=== PATIENT | male | born 1980 | race Caucasian/White ===

== ENCOUNTER 2018-04-02 14:32 | Observation (INO) | payer OTHER ==
--- NOTE | 2018-04-02 15:27 | RAD REPORT ---
EXAM DESCRIPTION: Maurice Single View04/02/2018 3:19 pm CLINICAL HISTORY: Chest pain COMPARISON: 2017 FINDINGS: The lungs appear clear of acute infiltrate. The heart is normal size IMPRESSION: No acute abnormalities displayed
[2018-04-02 15:28] LABS: Absolute Lymphocytes (CBC) 2.5 K/uL (0.7-4.9); Absolute Monocytes 1.2 K/uL (0.1-1.3); Absolute Neutrophil 7.5 K/uL (1.8-8.0); Basophils % 0.7 % (0-1.3); Eosinophils % 0.4 % (0-4.4); Hematocrit 50.4 % (39.6-49.0); Lymphocytes % 22.1 % (15.3-44.8); MCV 87.3 fL (80-100); MPV 9.4 fL (7.6-11.3); Monocytes % 10.6 % (3.3-12.3); RBC Red Blood Cell Count 5.77 M/uL (4.33-5.43)
[2018-04-02 15:31] LABS: Protime INR 1.26
[2018-04-02 15:43] LABS: ALT/SGPT 86 U/L (12-78); AST/SGOT 39 U/L (15-37); Albumin 3.8 g/dL (3.4-5.0); Alkaline Phosphatase 116 U/L (45-117); BUN Blood Urea Nitrogen 11 mg/dL (7-18); Bicarbonate 26 mmol/L (21-32); Bilirubin Direct 0.3 mg/dL (0-0.2); Glucose Level 254 mg/dL (74-106); Magnesium 1.9 mg/dL (1.8-2.4); NT PRO-BNP 24 pg/mL (<125); Potassium 3.1 mmol/L (3.5-5.1); Protein, Total 8.1 g/dL (6.4-8.2); Sodium Level 139 mmol/L (136-145); Troponin (Emerg Dept Use Only) < 0.02 ng/mL (0.0-0.045)
--- NOTE | 2018-04-02 15:57 | EKG ---
Test Date: 2018-04-02 Test Time: 15:16:55 Property Site Manager: AMOR MEASUREMENT RESULTS: Intervals: Rate: 99 PA: 164 QRSD: 90 QT: 346 QTc: 444 Hessmer: P: 50 PA: 164 QRS: 49 T: 23 INTERPRETIVE STATEMENTS: Normal sinus rhythm Normal ECG Compared to ECG 03/04/2017 17:36:10 No significant changes Electronically Signed On 04-02-18 15:56:46 BAGGER AND STOCK HANDLER HELPER by Macario Cherry
--- NOTE | 2018-04-02 16:20 | ER ---
Nurse's Notes [facility] Name: Yassine Calles Age: 37 yrs Sex: Male : 1980 Arrival Date: 04/02/2018 Time: 14:33 Bed 6 Private MD: None, None Diagnosis: Chest pain on breathing;Chest pain, unspecified;Essential (primary) hypertension;Tobacco abuse counseling;Tobacco use;Hypokalemia Presentation: 04/02 14:43 Presenting complaint: Patient states: shortness of breath that began 2-3 days ago. Pt ss states, "I thought it was because my moved out, but it's been getting worse." Pt also reports that he has not been taking his blood thinner and cardiac medication.". Transition of care: patient was not received from another setting of care. Onset of symptoms was March 30, 2018. Risk Assessment: Do you want to hurt yourself or someone else? Patient reports no desire to harm self or others. Initial Sepsis Screen: Does the patient meet any 2 criteria? RR > 20 per min. HR > 90 bpm. Does the patient have a suspected source of infection? No. Patient's initial sepsis screen is negative. Care prior to arrival: None. 14:43 Method Of Arrival: Ambulatory ss 14:43 Acuity: OCTAVIANO 2 hb Triage Assessment: 19:12 General: Appears in no apparent distress. Behavior is calm, cooperative. Pain: ak1 Complains of pain in chest. EENT: No signs and/or symptoms were reported regarding the EENT system. Neuro: No deficits noted. Cardiovascular: Reports chest pain. Respiratory: Reports shortness of breath. GI: No signs and/or symptoms were reported involving the gastrointestinal system. : No signs and/or symptoms were reported regarding the genitourinary system. Derm: No signs and/or symptoms reported regarding the dermatologic system. Musculoskeletal: No signs and/or symptoms reported regarding the musculoskeletal system. Historical: - Allergies: 14:45 No Known Allergies; hb - Home Meds: 15:15 None [Active]; hb - PMHx: 14:45 Atrial Fib; cardiomyopathy; Diabetes - NIDDM; Hypertension; hb 15:06 Myocardial infarction; DVT; pulmonary embolism; ss - PSHx: 14:45 None; hb - Immunization history:: Adult Immunizations up to date. - Social history:: Smoking status: Patient uses tobacco products, smokes two packs cigarettes per day. - Ebola Screening: : Patient denies exposure to infectious person Patient denies travel to an Ebola-affected area in the 21 days before illness onset. - Family history:: not pertinent. Screenin:44 Abuse screen: Denies threats or abuse. Denies injuries from another. Nutritional hb screening: No deficits noted. Tuberculosis screening: No symptoms or risk factors identified. Fall Risk None identified. Assessment: 15:05 Reassessment: Pt reports that he was seen approximately 8 months ago at [facility], diagnosed with DVT and PE and never followed up. 16:00 Reassessment: Patient appears in no apparent distress at this time. Patient and/or hb family updated on plan of care and expected duration. Pain level reassessed. Patient is alert, oriented x 3, equal unlabored respirations, skin warm/dry/pink. 17:00 Reassessment: Patient appears in no apparent distress at this time. No changes from hb previously documented assessment. Patient and/or family updated on plan of care and expected duration. Pain level reassessed. Patient is alert, oriented x 3, equal unlabored respirations, skin warm/dry/pink. 17:11 Reassessment: PT RETURNED FROM CT. bp 18:21 Reassessment: Patient appears in no apparent distress at this time. Patient and/or hb family updated on plan of care and expected duration. Pain level reassessed. Patient is alert, oriented x 3, equal unlabored respirations, skin warm/dry/pink. 19:14 Pain: Pain does not radiate. Pain began 2-3 days ago. ak1 Vital Signs: 14:44 BP 193 / 100; Pulse 122; Resp 17; Temp 98.1; Pulse Ox 100% on R/A; Weight 127.01 kg; bp Pain 8/10; 15:46 BP 159 / 95; Pulse 108; Resp 16; Pulse Ox 100% on R/A; hb 18:03 BP 122 / 71; Pulse 88; Resp 21; Pulse Ox 97% ; bp 19:20 BP 123 / 71; Pulse 89; Resp 20; Temp 98.3; Pulse Ox 97% on R/A; Pain 4/10; ak1 ED Course: 14:33 Patient arrived in ED. as 14:34 None, None is Private Physician. as 14:35 Ta Khalil MD is Attending Physician. grayson 14:43 Capri Winn, JU is Primary Nurse. hb 14:43 Inserted saline lock: 18 gauge in left antecubital area, using aseptic technique. Blood hb collected. Patient maintains SpO2 saturation greater than 95% on room air. 14:43 Arm band placed on right wrist. ss 14:48 Triage completed. ss 15:05 Patient has correct armband on for positive identification. Bed in low position. Call ss light in reach. Side rails up X 1. pvc monitor on. Pulse ox on. NIBP on. 15:19 X-ray completed. Portable x-ray completed in exam room. Patient tolerated procedure ml well. 15:20 XRAY Chest (1 view) In Process Unspecified. EDMS 15:24 EKG done, by sterilization technician. reviewed by Ta Khalil MD. tc 16:19 Miley Marino MD is Hospitalizing Provider. grayson 19:13 No provider procedures requiring assistance completed. Patient admitted, IV remains in ak1 place. Administered Medications: 17:10 Drug: Lovenox 1 mg/kg Route: Sub-Q; Site: right lower abdomen; bp 19:19 Follow up: Response: No adverse reaction ak1 17:10 Drug: Pepcid 20 mg Route: IVP; Site: left antecubital; bp 19:18 Follow up: Response: No adverse reaction ak1 17:10 Drug: Lopressor (metoprolol TARTRATE) 50 mg Route: PO; bp 19:17 Follow up: Response: No adverse reaction ak1 17:11 Drug: Potassium Effervescent Tablet 50 mEq Route: PO; bp 19:19 Follow up: Response: No adverse reaction ak1 17:11 Drug: Aspirin 162 mg Route: PO; bp 19:19 Follow up: Response: No adverse reaction ak1 Outcome: 16:20 Decision to Hospitalize by Provider. grayson 19:22 Admitted to Tele accompanied by tech, via wheelchair, with chart. ak1 19:22 Condition: stable 19:22 Instructed on the need for admit. 20:20 Patient left the ED. ak1 Signatures: Dispatcher [employer] EDMS Ta Khalil MD MD cha Martinez, Amelia as Lopez, Melissa ml Smirch, Shelby, JU RN Kacie Garcia, engraver signature EKG Ttc Kinjal Clement RN RN ak1 Capri Winn, JU RN hb Jason Ryan, RN RN bp Corrections: (The following items were deleted from the chart) 14:56 14:43 Acuity: OCTAVIANO 3 ss hb 14:57 14:44 BP 193 / 100; Pulse 120bpm; Resp 17bpm; Pulse Ox 100% RA; Temp 98.1F; Pain 8/10; hb hb 16:16 14:44 BP 193 / 100; Pulse 122bpm; Resp 17bpm; Pulse Ox 100% RA; Temp 98.1F; Pain 8/10; bp hb
--- NOTE | 2018-04-02 16:21 | EDPHYS ---
Physician Documentation [facility] Name: Yassine Calles Age: 37 yrs Sex: Male : 1980 Arrival Date: 04/02/2018 Time: 14:33 Bed 6 Private MD: None, None ED Physician Ta Khalil HPI: 04/02 16:16 This 37 yrs old Male presents to ER via Ambulatory with complaints of Chest grayson Pain, Breathing Difficulty. 16:16 This 37 yrs old Male presents to ER via Ambulatory with complaints of Chest grayson Pain, Breathing Difficulty. 16:16 This 37 yrs old Male presents to ER via Ambulatory with complaints of Chest grayson Pain, Breathing Difficulty. 16:16 The patient or guardian reports chest pain that is located primarily in the substernal grayson area. The pain does not radiate. Associated signs and symptoms: The patient has no apparent associated signs or symptoms. The chest pain is described as a heaviness. 16:17 The patient has shortness of breath with light activity. Onset: The symptoms/episode grayson began/occurred 3 day(s) ago. Duration: The symptoms are continuous, and are steadily getting worse. Associated signs and symptoms: The patient has no apparent associated signs or symptoms. Historical: - Allergies: 14:45 No Known Allergies; hb - Home Meds: 15:15 None [Active]; hb - PMHx: 14:45 Atrial Fib; cardiomyopathy; Diabetes - NIDDM; Hypertension; hb 15:06 Myocardial infarction; DVT; pulmonary embolism; ss - PSHx: 14:45 None; hb - Immunization history:: Adult Immunizations up to date. - Social history:: Smoking status: Patient uses tobacco products, smokes two packs cigarettes per day. - Ebola Screening: : Patient denies exposure to infectious person Patient denies travel to an Ebola-affected area in the 21 days before illness onset. - Family history:: not pertinent. ROS: 16:17 Constitutional: Negative for fever, chills, and weight loss, Eyes: Negative for injury, grayson pain, redness, and discharge, ENT: Negative for injury, pain, and discharge, Neck: Negative for injury, pain, and swelling, Abdomen/GI: Negative for abdominal pain, nausea, vomiting, diarrhea, and constipation, Back: Negative for injury and pain, : Negative for injury, bleeding, discharge, and swelling, MS/Extremity: Negative for injury and deformity, Skin: Negative for injury, rash, and discoloration, Neuro: Negative for headache, weakness, numbness, tingling, and seizure, Psych: Negative for depression, anxiety, suicide ideation, homicidal ideation, and hallucinations, Allergy/Immunology: Negative for hives, rash, and allergies, Endocrine: Negative for neck swelling, polydipsia, polyuria, polyphagia, and marked weight changes, Hematologic/Lymphatic: Negative for swollen nodes, abnormal bleeding, and unusual bruising. 16:17 Cardiovascular: Positive for chest pain. 16:17 Respiratory: Positive for cough, shortness of breath, on exertion. Exam: 16:17 Constitutional: This is a well developed, well nourished patient who is awake, alert, grayson and in no acute distress. Head/Face: Normocephalic, atraumatic. Eyes: Pupils equal round and reactive to light, extra-ocular motions intact. Lids and lashes normal. Conjunctiva and sclera are non-icteric and not injected. Cornea within normal limits. Periorbital areas with no swelling, redness, or edema. ENT: Nares patent. No nasal discharge, no septal abnormalities noted. Tympanic membranes are normal and external auditory canals are clear. Oropharynx with no redness, swelling, or masses, exudates, or evidence of obstruction, uvula midline. Mucous membranes moist. Neck: Trachea midline, no thyromegaly or masses palpated, and no cervical lymphadenopathy. Supple, full range of motion without nuchal rigidity, or vertebral point tenderness. No Meningismus. Chest/axilla: Normal chest wall appearance and motion. Nontender with no deformity. No lesions are appreciated. Cardiovascular: Regular rate and rhythm with a normal S1 and S2. No gallops, murmurs, or rubs. Normal PMI, no JVD. No pulse deficits. Abdomen/GI: Soft, non-tender, with normal bowel sounds. No distension or tympany. No guarding or rebound. No evidence of tenderness throughout. Back: No spinal tenderness. No costovertebral tenderness. Full range of motion. Skin: Warm, dry with normal turgor. Normal color with no rashes, no lesions, and no evidence of cellulitis. MS/ Extremity: Pulses equal, no cyanosis. Neurovascular intact. Full, normal range of motion. Neuro: Awake and alert, GCS 15, oriented to person, place, time, and situation. Cranial nerves II-XII grossly intact. Motor strength 5/5 in all extremities. Sensory grossly intact. Cerebellar exam normal. Normal gait. Psych: Awake, alert, with orientation to person, place and time. Behavior, mood, and affect are within normal limits. 16:17 Respiratory: the patient does not display signs of respiratory distress, Respirations: normal, Breath sounds: are clear throughout, rhonchi, that are mild, are scattered. Vital Signs: 14:44 BP 193 / 100; Pulse 122; Resp 17; Temp 98.1; Pulse Ox 100% on R/A; Weight 127.01 kg; bp Pain 8/10; 15:46 BP 159 / 95; Pulse 108; Resp 16; Pulse Ox 100% on R/A; hb 18:03 BP 122 / 71; Pulse 88; Resp 21; Pulse Ox 97% ; bp 19:20 BP 123 / 71; Pulse 89; Resp 20; Temp 98.3; Pulse Ox 97% on R/A; Pain 4/10; ak1 MDM: 14:35 Patient medically screened. [facility] 16:18 Data reviewed: vital signs, nurses notes, lab test result(s), EKG, radiologic studies, [facility] CT scan, plain films. 04/02 14:56 Order name: Basic Metabolic Panel; Complete Time: 16: 04/02 14:56 Order name: CBC with Diff; Complete Time: 16: 04/02 14:56 Order name: LFT's; Complete Time: 16: 04/02 14:56 Order name: Magnesium; Complete Time: 16: 04/02 14:56 Order name: NT PRO-BNP; Complete Time: 16: 04/02 14:56 Order name: PT-INR; Complete Time: 16: 04/02 14:56 Order name: Troponin (emerg Dept Use Only); Complete Time: 16: 04/02 14:56 Order name: XRAY Chest (1 view); Complete Time: 16:01 04/02 16:16 Order name: US Extremity Venous W Compression Edu grayson 04/02 16:16 Order name: CT Chest For PE Angio [facility] 04/02 16:50 Order name: CT; Complete Time: 16:53 EDMS 04/02 17:14 Order name: US; Complete Time: 18:18 EDOK 04/02 14:56 Order name: EKG; Complete Time: 15:04 hb 04/02 14:56 Order name: Cardiac monitoring; Complete Time: 14:56 hb 04/02 14:56 Order name: EKG - Nurse/Tech; Complete Time: 15:19 hb 04/02 14:56 Order name: IV Saline Lock; Complete Time: 15:08 hb 04/02 14:56 Order name: Labs collected and sent; Complete Time: 15:07 hb 04/02 14:56 Order name: O2 Per Protocol; Complete Time: 15:08 hb 04/02 14:56 Order name: O2 Sat Monitoring; Complete Time: 15:08 hb 04/02 16:27 Order name: CONS Physician Consult EDMS Administered Medications: 17:10 Drug: Lovenox 1 mg/kg Route: Sub-Q; Site: right lower abdomen; bp 19:19 Follow up: Response: No adverse reaction ak1 17:10 Drug: Pepcid 20 mg Route: IVP; Site: left antecubital; bp 19:18 Follow up: Response: No adverse reaction ak1 17:10 Drug: Lopressor (metoprolol TARTRATE) 50 mg Route: PO; bp 19:17 Follow up: Response: No adverse reaction ak1 17:11 Drug: Potassium Effervescent Tablet 50 mEq Route: PO; bp 19:19 Follow up: Response: No adverse reaction ak1 17:11 Drug: Aspirin 162 mg Route: PO; bp 19:19 Follow up: Response: No adverse reaction ak1 Disposition: 04/02/18 16:20 Hospitalization ordered by Miley Marino for Observation. Preliminary diagnosis are Chest pain on breathing, Chest pain, unspecified, Essential (primary) hypertension, Tobacco abuse counseling, Tobacco use, Hypokalemia. - Bed requested for Telemetry/MedSurg (observation). - Status is Observation. ak1 - Condition is Stable. - Problem is new. - Symptoms have improved. UTI on Admission? No Signatures: Dispatcher [employer] EDOK Carolin Finch RN RN dw Anderson, Corey, MD MD cha Smirch, Shelby, RN RN ss Krenek, Amber, RN RN ak1 Winn, Capri, RN RN hb Taylor, Uche, RN RN jd3 Connor, Jason, RN RN bp Corrections: (The following items were deleted from the chart) 16:20 16:20 Hospitalization Ordered by Miley Marino MD for Observation. Preliminary grayson diagnosis is Chest pain on breathing; Chest pain, unspecified; Essential (primary) hypertension; Tobacco abuse counseling; Tobacco use. Bed requested for Telemetry/MedSurg (observation). Status is Observation. Condition is Stable. Problem is new. Symptoms have improved. UTI on Admission? No. grayson 16:31 16:20 04/02/2018 16:20 Hospitalization Ordered by Miley Marino MD for Observation. dw Preliminary diagnosis is Chest pain on breathing; Chest pain, unspecified; Essential (primary) hypertension; Tobacco abuse counseling; Tobacco use; Hypokalemia. Bed requested for Telemetry/MedSurg (observation). Status is Observation. Condition is Stable. Problem is new. Symptoms have improved. UTI on Admission? No. grayson 19:40 16:31 04/02/2018 16:20 Hospitalization Ordered by Miley Marino MD for Observation. jd3 Preliminary diagnosis is Chest pain on breathing; Chest pain, unspecified; Essential (primary) hypertension; Tobacco abuse counseling; Tobacco use; Hypokalemia. Bed requested for Telemetry/MedSurg (observation). Status is Observation. Condition is Stable. Problem is new. Symptoms have improved. UTI on Admission? No. dw 20:20 19:40 04/02/2018 16:20 Hospitalization Ordered by Miley Marino MD for Observation. ak1 Preliminary diagnosis is Chest pain on breathing; Chest pain, unspecified; Essential (primary) hypertension; Tobacco abuse counseling; Tobacco use; Hypokalemia. Bed requested for Telemetry/MedSurg (observation). Status is Observation. Condition is Stable. Problem is new. Symptoms have improved. UTI on Admission? No. jd3
[2018-04-02] MEDS ORDERED: METOPROLOL TAR 50 MG TAB ONE (16:46)
[2018-04-02] MEDS ORDERED: ASPIRIN EC 81 MG TAB PO ONE (16:46)
[2018-04-02] MEDS ORDERED: POTASSIUM 25 MEQ EFFERV TAB ONE (16:47)
[2018-04-02] MEDS ORDERED: FAMOTIDINE 20 MG/2 ML VIAL IV ONE (16:47)
[2018-04-02] MEDS ORDERED: ENOXAPARIN 100 MG/ML SYR SQ ONE (16:47)
--- NOTE | 2018-04-02 16:49 | RAD REPORT ---
EXAM DESCRIPTION: CT - Chest For Pe Angio - 04/02/2018 4:36 pm CLINICAL HISTORY: Chest pain, shortness of breath COMPARISON: None. TECHNIQUE: Dynamically enhanced 3 mm thick images of the chest were obtained during administration o f approximately 150mL Isovue 370 IV contrast. Coronal and oblique MIP reconstruction images were gene rated and reviewed. Exam utilizes a protocol to evaluate the pulmonary arterial tree. All CT scans are performed using dose optimization technique as appropriate and may include automated exposure control or mA/KV adjustment according to patient size. FINDINGS: No pulmonary emboli are identified. The aorta as imaged shows no acute or suspicious finding. No pericardial thickening or effusion. No mass or consolidation suspected. There is a trace amount of opacification in the medial gutter on the left. No pleural effusion or pleural thickening. No mediastinal or hilar suspicious masses. No chest wall masses or abnormal axillary lymphadenopathy. IMPRESSION: No pulmonary emboli identified. Minimal opacification in the medial left lung base probably atelectasis rather than infiltrate. Mass lesion is not suspected.
--- NOTE | 2018-04-02 17:14 | RAD REPORT ---
EXAM DESCRIPTION: US - Extrem Venous W Compress Edu - 04/02/2018 5:08 pm CLINICAL HISTORY: Leg pain and swelling COMPARISON: None. TECHNIQUE: Real-time sonographic evaluation of the bilateral lower extremity common femoral, superfi cial femoral, popliteal and posterior tibial veins was performed. FINDINGS: Normal compressibility, flow augmentation, phasic flow and spontaneous flow are identified in the left and right lower extremity common femoral, superficial femoral, popliteal and posterior t ibial veins. No intraluminal filling defects seen. IMPRESSION: No DVT in either lower extremity.
[2018-04-02] MEDS: RIVAROXABAN 10 MG TABLET PO SCH ×2 (21:00→22:13)
[2018-04-02 21:07] VITALS: BMI 36.6
--- NOTE | 2018-04-02 21:26 | P.HP ---
Certification for Inpatient Patient admitted to: Observation With expected LOS: <2 Midnights Practitioner: I am a practitioner with admitting privileges, knowledge of patient current condition, hospital course, and medical plan of care. Services: Services provided to patient in accordance with Admission requirements found in Title 42 Section 412.3 of the Code of Federal Regulations Patient History Date of Service: 04/02/18 Reason for admission: Chest pain History of Present Illness: Mr. Calles is a 37-year-old male history of hypertension, AFib, DVT/pulmonary embolism, who came to ER complaining of chest pain. He described the pain as a constant, tightness like, retrosternal pain. The pain started about 2 days ago, intensity most of the time is 6/10 with a maximum of 10/10. He denied any nausea, vomiting, shortness of breath or diaphoresis associated. The patient states that has been not taking his medication for six-month. Lately he has been more stressful due to family problems. He smokes 2 packs having and drinks alcohol but not every day. EKG shows normal and [address]-T abnormality. Chest x-ray is not acute abnormality. 193/100, O2 sat 100% on room air. Lab work shows WBC 11.4 K, potassium 3.1 Allergies No Known Drug Allergies Allergy (Unverified 10/17/14 00:51) Unknown No Known Allergies Allergy (Uncoded 03/04/17 19:15) Unknown Home medications list reviewed: Yes Home Medications: Digoxin [Lanoxin*] 0.25 mg PO DAILY #0 tab 08/05/13 Furosemide [Lasix*] 40 mg PO DAILY #0 tab 08/05/13 Rivaroxaban [Xarelto*] 20 mg PO BEDTIME #0 tablet 08/05/13 Sotalol HCl [Betapace*] 80 mg PO Q12HR 6AM AND 6PM #0 tab 08/05/13 Atorvastatin Calcium [Lipitor*] 10 mg PO DAILY 10/16/14 Lisinopril [Prinivil*] 10 mg PO DAILY 10/16/14 Colchicine [Colcrys *] 0.6 mg PO BID PRN #20 tab 10/17/14 Cyclobenzaprine [Flexeril*] 10 mg PO BID PRN #20 tab 10/17/14 Hydrocodone 10/APAP 325 [[place] 10/325] 1 tab PO Q6H PRN #30 tab 10/17/14 methylPREDNISolone [Medrol] 4 mg PO DAILY #1 tab 10/17/14 - Past Medical/Surgical History Diabetic: No -: A-fib -: Cardiomyopathy -: HTN - Family History Family History: Reviewed- Non-Contributory - Social History Smoking Status: Current every day smoker Smoking therapy provided: Yes Alcohol use: No CD- Drugs: No Caffeine use: Yes Place of Residence: Home Review of Systems 10-point ROS is otherwise unremarkable Physical Examination - Vital Signs Temperature: 97.9 F Blood Pressure: 134/86 Pulse: 92 Respirations: 20 Pulse Ox (%): 95 - Physical Exam General: Alert, In no apparent distress HEENT: Atraumatic, PERRLA, Mucous membr. moist/pink, EOMI, Sclerae nonicteric Neck: Supple, 2+ carotid pulse no bruit, No LAD, Without JVD or thyroid abnormality Respiratory: Clear to auscultation bilaterally, Normal air movement Cardiovascular: Regular rate/rhythm, Normal S1 S2 Gastrointestinal: Normal bowel sounds, No tenderness Musculoskeletal: No tenderness Integumentary: No rashes Neurological: Normal speech, Normal strength at 5/5 x4 extr, Normal tone, Abnormal affect (Flat) Lymphatics: No axilla or inguinal lymphadenopathy - Studies Laboratory Data (last 24 hrs) 04/02/18 14:46: PT 14.9 H, INR 1.26 04/02/18 14:46: WBC 11.4 H, Hgb 17.3, Hct 50.4 H, Plt Count 251 04/02/18 14:46: Sodium 139, Potassium 3.1 L, BUN 11, Creatinine 1.10, Glucose 254 H, Magnesium 1.9, Total Bilirubin 1.0, AST 39 H, ALT 86 H, Alkaline Phosphatase 116 Assessment and Plan - Problems (Diagnosis) (1) Hypertension Current Visit: Yes Status: Acute Qualifiers: Hypertension type: essential hypertension Qualified Code(s): I10 - Essential (primary) hypertension (2) Atrial fibrillation Current Visit: No Status: Acute (3) Chest pain Onset Date: 10/17/14 Current Visit: No Status: Acute Qualifiers: Chest pain type: unspecified Qualified Code(s): R07.9 - Chest pain, unspecified - Plan The patient will be admitted to the hospital due to chest pain. So far EKG ST-T abnormality, initial troponin I is negative. Will resume home medication, order serial cardiac enzymes and EKG, echo cardiology consult. - Advance Directives Does patient have a Living Will: No Does patient have a Durable POA for Healthcare: No - Code Status/Comfort Care Code Status Assessed: Yes Code Status: Full Code
[2018-04-03 00:30] LABS: Urine Appearance CLEAR; Urine Bilirubin NEGATIVE (NEG); Urine Blood NEGATIVE (NEG); Urine Color DK YELLOW; Urine Glucose 3+ (NEG); Urine Protein NEGATIVE (NEG); Urine Specific Gravity >=1.030 (1.005-1.030); Urine pH 5.5 (5.0-7.0)
[2018-04-03 00:34] LABS: Urine Microscopic Reflex NO UMIC
[2018-04-03] MEDS ORDERED: GLUCAGON 1 MG/VIAL IM PRN (02:53)
[2018-04-03] MEDS ORDERED: D50W 25 GM/50 ML SYRINGE IV PRN (02:53)
[2018-04-03] MEDS ORDERED: POTASSIUM CL SA 10 MEQ TAB PO ONE (02:55)
[2018-04-03 04:56] LABS: Absolute Lymphocytes (CBC) 3.7 K/uL (0.7-4.9); Absolute Neutrophil 3.5 K/uL (1.8-8.0); Basophils % 0.7 % (0-1.3); Eosinophils % 2.1 % (0-4.4); Hematocrit 46.2 % (39.6-49.0); Lymphocytes % 43.9 % (15.3-44.8); MCH 30.6 pg (27.0-35.0); MCV 87.5 fL (80-100); MPV 9.3 fL (7.6-11.3); Monocytes % 12.3 % (3.3-12.3); RBC Red Blood Cell Count 5.28 M/uL (4.33-5.43)
[2018-04-03 05:18] LABS: ALT/SGPT 77 U/L (12-78); AST/SGOT 36 U/L (15-37); Albumin 3.3 g/dL (3.4-5.0); Alkaline Phosphatase 89 U/L (45-117); BUN Blood Urea Nitrogen 11 mg/dL (7-18); Bicarbonate 31 mmol/L (21-32); Glucose Level 207 mg/dL (74-106); HDL Cholesterol 23 mg/dL (40-60); LDL Cholesterol, Calculated 108 (<130); Potassium 3.5 mmol/L (3.5-5.1); Sodium Level 139 mmol/L (136-145); Troponin I < 0.02 ng/mL (0.0-0.045)
[2018-04-03] MEDS ORDERED: SOTALOL HCL 80 MG TAB PO SCH ×2 (06:00→18:00)
[2018-04-03] MEDS: INSULIN -REGULAR HUMAN 50 UNIT/0.5 ML ML SQ SCH ×3 (07:30→16:02)
[2018-04-03] MEDS ORDERED: ATORVASTATIN 10 MG TAB PO SCH (09:00)
[2018-04-03] MEDS ORDERED: LISINOPRIL 10 MG TAB PO SCH (09:00)
[2018-04-03] MEDS: IPRATROPIUM BROM 0.5MG/2.5ML NEB SCH ×2 (10:36→14:00)
[2018-04-03] MEDS: ALBUTEROL 2.5 MG/3 ML NEB SOL NEB SCH ×2 (10:36→14:00)
[2018-04-03 12:25] VITALS: O2SAT 97
--- NOTE | 2018-04-03 13:40 | CON ---
Date of Consultation: 04/03/2018 Reason For Consultation: Shortness of breath and chest pain. History Of Present Illness: Mr. Calles is a 37-year-old white male, who has been lost to follow up f or many years. He weighs 280 pounds and had a history at one point of atrial fibrillation and status post cardioversion in 2013 to sinus rhythm. He has a history of dyslipidemia, pulmonary hypertensio n, diabetes, cardiomyopathy. Has had DVT's, PE's, and supposedly CAD, although not documented. At o ne point, he use see Dr. Cherry. Had been lost a follow up and since then had seen Dr. Marcum, I th ink once. Has done fairly well, and he stopped taking all his medications for a while now. Has last cardiac workup in 2014. He had a normal echocardiogram and normal Lexiscan. He has been having julio cesar e issues at home with his marriage. His left the house and apparently has been under significan t amount of stress, came in with shortness of breath. Allergies: NONE. Review of Systems: Negative. Social History: Positive for tobacco. Negative for alcohol and drugs. Family History: Negative at one point. Medications: Included digoxin, Lipitor, Lasix, sotalol, lisinopril, and Xarelto. He is not taking a ny now. Physical Examination: Vital Signs: He weighed 280 pounds, was in sinus rhythm, very anxious. HEENT: Negative. Neck: Supple with no bruit. Chest: Clear to auscultation and percussion. No wheezing. No rales. Cardiac: Normal. Abdomen: Obese, but benign. Extremities: No clubbing, cyanosis, or edema. Diagnostic Data: He had a white count of 11,000, potassium of 3.1, glucose was 207, HDL was 23. Chest x-ray was negative. Venous Doppler was negative. EKG is normal. CT angiogram was negative. Troponin, BNP was negative. Impression And Plan: Mr. Calles had a rather extensive past cardiac history and medical history, but so far all his workup is negative including troponin, BNP, CPK, CT angiogram, deep venous Doppler, c hest x-ray, and EKG. The only thing worth mentioning is his glucose 207, white count is 11,000, and potassium 3.1. It is possible that all his symptoms may be secondary to stress and anxiety and hyper ventilation causing the hypokalemia. But with his significant history, I think I would definitely quach ve him do an echocardiogram today, and we will see what that shows prior to making any final decision s. I do not think we will need to do a stress test today. I think he needs to have his potassium co rrected, his glucose treated, and he is to find a primary care physician that he will follow up on a regular basis. His atrial fibrillation is resolved. We will make further decisions after the echoca rdiogram is done. PATTY/JOVANNI Voice ID: [id number] Report ID: [id number]
[2018-04-03] MEDS ORDERED: IPRATROPIUM BROM 0.5MG/2.5ML NEB PRN (14:41)
[2018-04-03] MEDS ORDERED: ALBUTEROL 2.5 MG/3 ML NEB SOL NEB PRN (14:43)
--- NOTE | 2018-04-03 15:16 | ECHO ---
HEIGHT: 6 ft 0 in WEIGHT: 269 lb 14.4 oz DATE OF STUDY: 04/03/[address]: Ashkan Anguiano MD 2-DIMENSIONAL: YES M.MODE: YES DOPPLER: YES COLOR FLOW: YES TDS: PORTABLE: DEFINITY: BUBBLE STUDY: DIAGNOSIS: CHEST PAIN, SHORTNESS OF BREATH, AND HYPERTENSION. CARDIAC HISTORY: CATHERIZATION: NO SURGERY: NO PROSTHETIC VALVE: NO PACEMAKER: NO MEASUREMENTS (cm) DIASTOLIC (NORMALS) SYSTOLIC (NORMALS) IVSd 1.4 (0.6-1.2) LA Diam 4.0 (1.9-4.0) LVEF 52% LVIDd 3.8 (3.5-5.7) LVIDs 2.8 (2.0-3.5) %FS 26% LVPWd 1.4 (0.6-1.2) Ao Diam 3.1 (2.0-3.7) 2 DIMENSIONAL ASSESSMENT: RIGHT ATRIUM: NORMAL LEFT ATRIUM: NORMAL RIGHT VENTRICLE: NORMAL LEFT VENTRICLE: LEFT VENTRICULAR HYPERTROPHY TRICUSPID VALVE: NORMAL MITRAL VALVE: NORMAL PULMONIC VALVE: NORMAL AORTIC VALVE: NORMAL PERICARDIAL EFFUSION: NONE AORTIC ROOT: NORMAL LEFT VENTRICULAR WALL MOTION: NORMAL DOPPLER/COLOR FLOW: NORMAL COMMENTS: LEFT VENTRICULAR HYPERTROPHY. NORMAL EJECTION FRACTION. NO WALL MOTION ABNORMALITY. NO EFFUSION. TECHNOLOGIST: CONNER ORTIZ
--- NOTE | 2018-04-03 15:30 | P.SSS ---
Patient History Date of Service: 04/03/18 Reason for admission: Chest pain History of Present Illness: Mr. Calles is a 37-year-old male history of hypertension, AFib, DVT/pulmonary embolism, who came to ER complaining of chest pain. He described the pain as a constant, tightness like, retrosternal pain. The pain started about 2 days ago, intensity most of the time is 6/10 with a maximum of 10/10. He denied any nausea, vomiting, shortness of breath or diaphoresis associated. The patient states that has been not taking his medication for six-month. Lately he has been more stressful due to family problems. He smokes 2 packs having and drinks alcohol but not every day. EKG shows normal and [address]-T abnormality. Chest x-ray is not acute abnormality. 193/100, O2 sat 100% on room air. Lab work shows WBC 11.4 K, potassium 3.1 Allergies No Known Drug Allergies Allergy (Verified 04/02/18 22:10) Unknown No Known Allergies Allergy (Uncoded 03/04/17 19:15) Unknown Home Medications: Digoxin [Lanoxin*] 0.25 mg PO DAILY #0 tab 08/05/13 Furosemide [Lasix*] 40 mg PO DAILY #0 tab 08/05/13 Rivaroxaban [Xarelto*] 20 mg PO BEDTIME #0 tablet 08/05/13 Sotalol HCl [Betapace*] 80 mg PO Q12HR 6AM AND 6PM #0 tab 08/05/13 Atorvastatin Calcium [Lipitor*] 10 mg PO DAILY 10/16/14 Lisinopril [Prinivil*] 10 mg PO DAILY 10/16/14 - Past Medical/Surgical History Has patient received pneumonia vaccine in the past: No Diabetic: Yes -: A-fib -: Cardiomyopathy -: HTN -: PE -: DVT -: NE -: NIDDM -: HTN - Family History Family History: Reviewed- Non-Contributory - Family History Father -: Other (see notes) Notes: multiple back surgeries, otherwise unaware of any other medical problems Mother History Unknown: Yes Brother History Unknown: Yes - Social History Smoking Status: Current every day smoker Alcohol use: Yes CD- Drugs: No Caffeine use: Yes Place of Residence: Home Review of Systems 10-point ROS is otherwise unremarkable Physical Examination - Vital Signs Temperature: 98.9 F Blood Pressure: 142/92 Pulse: 94 Respirations: 18 Pulse Ox (%): 97 - Physical Exam General: Alert, In no apparent distress HEENT: Atraumatic, PERRLA, Mucous membr. moist/pink, EOMI, Sclerae nonicteric Neck: Supple, 2+ carotid pulse no bruit, No LAD, Without JVD or thyroid abnormality Respiratory: Clear to auscultation bilaterally, Normal air movement Cardiovascular: Regular rate/rhythm, Normal S1 S2 Gastrointestinal: Normal bowel sounds, No tenderness Musculoskeletal: No tenderness Integumentary: No rashes Neurological: Normal gait, Normal speech, Normal strength at 5/5 x4 extr, Normal tone, Normal affect Lymphatics: No axilla or inguinal lymphadenopathy - Studies Laboratory Data (last 24 hrs) 04/02/18 14:46: PT 14.9 H, INR 1.26 04/02/18 14:46: WBC 11.4 H, Hgb 17.3, Hct 50.4 H, Plt Count 251 04/02/18 14:46: Sodium 139, Potassium 3.1 L, BUN 11, Creatinine 1.10, Glucose 254 H, Magnesium 1.9, Total Bilirubin 1.0, AST 39 H, ALT 86 H, Alkaline Phosphatase 116 - Diagnosis (Problem(s)) (1) Chest pain Onset Date: 04/03/18 Current Visit: Yes Status: Acute Qualifiers: Chest pain type: other chest pain Qualified Code(s): R07.89 - Other chest pain; R07.8 - Other chest pain (2) Hypertension Onset Date: 04/03/18 Current Visit: Yes Status: Chronic Qualifiers: Hypertension type: essential hypertension Qualified Code(s): I10 - Essential (primary) hypertension Treatment Summary: Overall during the hospital stay patient remained stable The patient was initially admitted to the hospital for chest pain most likely secondary to anxiety versus panic attack. However cardiology recommended the patient get an echocardiogram done to rule out any acute abnormality. Echocardiogram was done here in the hospital which is within normal limits. Patient then was discharged home chest pain did resolve here in the hospital. While here in the hospital patient also received duo nebs which did help him feel better. Patient was educated extensively on smoking cessation and was asked to continue taking his medications as prescribed. Patient demonstrated understanding and thus was discharged home under stable condition - Disposition Disposition: ROUTINE DISCHARGE Condition: GOOD Diet: Regular Activity: Ad valdemar
[2018-04-03 18:10] VITALS: BP 146/93; TEMP 97.6
[2018-04-04] MEDS ORDERED: DIGOXIN 0.25 MG TABLET PO SCH (09:00)
[2018-04-04] MEDS ORDERED: FUROSEMIDE 40 MG TABLET PO SCH (09:00)
== END 2018-04-03 17:27 | disposition home or self-care (01) ==
LOC: ER 14:32 → ERHOLD 16:21 → 4TH 19:50
PROVIDERS: ADMIT Family Medicine; ATTEND Internal Medicine
DX: R07.9 Chest pain, unspecified (principal); I10 Essential (primary) hypertension; I48.91 Unspecified atrial fibrillation; E11.9 Type 2 diabetes mellitus without complications; F17.210 Nicotine dependence, cigarettes, uncomplicated; Z86.718 Personal history of other venous thrombosis and embolism; Z86.711 Personal history of pulmonary embolism
CPT/HCPCS: 36415; 71045; 71275; 80048; 80053; 80061; 80076; 81003; 82962; 83735; 83880; 84132; 84484; 85025; 85610; 93005; 93306; 93970; 94640; 96372; 96374; 99285; G0378; J1650; Q9967

== ENCOUNTER 2018-05-30 18:34 | Inpatient (IN) | payer OTHER ==
[2018-05-30] MEDS ORDERED: NA CHLORIDE 0.9% 500 ML ONE (18:59)
[2018-05-30] MEDS ORDERED: DIGOXIN 0.25 MG/ML AMP ONE (19:23)
[2018-05-30 19:24] LABS: Absolute Lymphocytes (CBC) 1.5 K/uL (0.7-4.9); Absolute Monocytes 1.2 K/uL (0.1-1.3); Absolute Neutrophil 12.4 K/uL (1.8-8.0); Basophils % 0.4 % (0-1.3); Eosinophils % 0.3 % (0-4.4); Hematocrit 48.7 % (39.6-49.0); MPV 9.5 fL (7.6-11.3); Monocytes % 8.1 % (3.3-12.3); RBC Red Blood Cell Count 5.58 M/uL (4.33-5.43)
[2018-05-30 19:27] LABS: Protime INR 1.17
--- NOTE | 2018-05-30 19:30 | RAD REPORT ---
EXAM DESCRIPTION: CT - Head Brain Wo Cont - 05/30/2018 7:23 pm CLINICAL HISTORY: seizures COMPARISON: No comparisons TECHNIQUE: All CT scans are performed using dose optimization technique as appropriate and may inclu de automated exposure control or mA/KV adjustment according to patient size. FINDINGS: No intracranial hemorrhage, hydrocephalus or extra-axial fluid collection.No areas of brai n edema or evidence of midline shift. The paranasal sinuses and mastoids are clear. The calvarium is intact. IMPRESSION: No acute intracranial abnormality.
[2018-05-30 19:36] LABS: Barbiturates NEGATIVE (NEGATIVE); Benzodiazepines POSITIVE (NEGATIVE); Cocaine NEGATIVE (NEGATIVE); METHAMPHETAM NEGATIVE (NEGATIVE); Methadone NEGATIVE (NEGATIVE); Opiates NEGATIVE (NEGATIVE); Phencyclidine NEGATIVE (NEGATIVE); THC Cannibis NEGATIVE (NEGATIVE)
[2018-05-30 19:39] LABS: Urine Blood 1+ (NEG); Urine Glucose 2+ (NEG); Urine Protein 1+ (NEG)
[2018-05-30] MEDS ORDERED: LORazepam 2 MG/ML VIAL ONE (19:44)
--- NOTE | 2018-05-30 19:50 | RAD REPORT ---
EXAM DESCRIPTION: RAD - Chest Single View - 05/30/2018 7:44 pm CLINICAL HISTORY: seizures, cardiomyopathy Chest pain. COMPARISON: Chest Single View dated 04/02/2018; Chest Pa And Lat (2 Views) dated 03/04/2017; CHEST S YASSINE VIEW dated 10/16/2014; CHEST SINGLE VIEW dated 09/03/2013 FINDINGS: Portable technique limits examination quality. Mild interstitial pulmonary edema suspected. The heart is upper limit normal in size. No displaced fr actures.
[2018-05-30] MEDS ORDERED: ENOXAPARIN 100 MG/ML SYR SQ ONE (19:52)
[2018-05-30 19:56] LABS: ALT/SGPT 79 U/L (12-78); AST/SGOT 38 U/L (15-37); Albumin 3.6 g/dL (3.4-5.0); Alkaline Phosphatase 109 U/L (45-117); BUN Blood Urea Nitrogen 15 mg/dL (7-18); Bicarbonate 20 mmol/L (21-32); Bilirubin Direct 0.2 mg/dL (0-0.2); Bilirubin Total 0.5 mg/dL (0.2-1.0); CKMB Creatine Kinase MB 1.7 ng/mL (0.3-3.6); Creatine Phosphokinase 234 U/L (39-308); Glucose Level 326 mg/dL (74-106); Lipase 232 U/L (73-393); Magnesium 2.4 mg/dL (1.8-2.4); Potassium 3.7 mmol/L (3.5-5.1); Protein, Total 7.9 g/dL (6.4-8.2); Sodium Level 135 mmol/L (136-145); Troponin (Emerg Dept Use Only) < 0.02 ng/mL (0.0-0.045)
--- NOTE | 2018-05-30 20:42 | ER ---
Nurse's Notes [facility] Name: Yassine Calles Age: 37 yrs Sex: Male : 1980 Arrival Date: 05/30/2018 Time: 18:41 Bed 4 Private MD: Diagnosis: Epilepsy and recurrent seizures;Chronic atrial fibrillation;Diabetes mellitus due to underlying condition with hyperglycemia Presentation: 05/30 18:45 Presenting complaint: EMS states: Had 3 seizures today, witnessed by family, no hx of ph seizures, seen at [facility] and d/c home w/ prescription for dilantin, before script could be filled pt had another seizure, pt post-ictal and combative when EMS arrived on scene, pt given 2 mg Ativan and 10 mg Versed IM, BGL 264, HR 160s hx of A-fib. Transition of care: patient was not received from another setting of care. Onset of symptoms was May 30, 2018. Risk Assessment: Do you want to hurt yourself or someone else? Patient reports no desire to harm self or others. Initial Sepsis Screen: Does the patient meet any 2 criteria? No. Patient's initial sepsis screen is negative. Does the patient have a suspected source of infection? No. Patient's initial sepsis screen is negative. Care prior to arrival: None. 18:45 Method Of Arrival: EMS: [facility] 18:45 Acuity: OCTAVIANO 2 ph Triage Assessment: 18:52 General: Appears in no apparent distress. Behavior is cooperative, drowsy. Pain: Denies ph pain. Neuro: Level of Consciousness is awake, post ictal, Oriented to person. Cardiovascular: Patient's skin is warm and dry. Rhythm is atrial fibrillation with rapid ventricular response. Respiratory: Airway is patent Respiratory effort is even, unlabored. Historical: - Allergies: 18:52 No Known Drug Allergies; ph - PMHx: 18:52 Atrial Fib; cardiomyopathy; Diabetes - NIDDM; DVT; Hypertension; Myocardial infarction; ph Pulmonary Embolism; Hyperlipidemia; - Immunization history:: Adult Immunizations unknown. - Ebola Screening: : No symptoms or risks identified at this time. - Social history:: Smoking status: unknown. Screenin:54 Abuse screen: Denies threats or abuse. Denies injuries from another. Nutritional ph screening: No deficits noted. Tuberculosis screening: No symptoms or risk factors identified. Fall Risk No fall in past 12 months (0 pts). Secondary diagnosis (15 points) seizures, IV access (20 points). Ambulatory Aid- None/Bed Rest/Nurse Assist (0 pts). Gait- Weak (10 pts.). Mental Status- Overestimates/Forgets Limitations (15 pts.). Total Webb Fall Scale indicates High Risk Score (45 or more points). Fall prevention measures have been instituted. Side Rails Up X 2 Placed Close to Nursing Station Frequent Obs/Assessments Occuring Family Present and informed to notify staff if the need to leave the bedside As available patient and family educated on Fall Prevention Program and Strategies. Assessment: 19:20 General: Appears in no apparent distress. comfortable, Behavior is calm, cooperative, ao appropriate for age. Pain: Denies pain. Neuro: Level of Consciousness is awake, alert, obeys commands, Oriented to person, place, time, situation, Appropriate for age Moves all extremities. Full function Speech is normal. Cardiovascular: Capillary refill < 3 seconds. Respiratory: Airway is patent Respiratory effort is even, unlabored, Respiratory pattern is regular, symmetrical. GI: Abdomen is obese. : No signs and/or symptoms were reported regarding the genitourinary system. EENT: No signs and/or symptoms were reported regarding the EENT system. Derm: Skin is intact, Skin is pink, warm \T\ dry. normal, Skin temperature is warm. Musculoskeletal: Range of motion: intact in all extremities. 21:02 Reassessment: PA ordered to hold insulin and recheck in an hour. tl2 21:20 Reassessment: Patient appears in no apparent distress at this time. Patient to be ao admitted to the hospital. patient and significant other agree with POC. Vital Signs: 18:49 BP 110 / 67; Pulse 167; Resp 12; Temp 98.1; Pulse Ox 90% on R/A; ph 19:39 BP 124 / 80; Pulse 130; Resp 26; Pulse Ox 95% on R/A; tl2 19:41 Weight 136.08 kg; tl2 20:12 BP 127 / 73; Pulse 119; Resp 19; Pulse Ox 95% on R/A; tl2 20:58 BP 115 / 69; Pulse 114; Resp 14; Pulse Ox 95% ; Pain 0/10; ao 21:01 BP 115 / 69; Pulse 118; Resp 18; Pulse Ox 95% on R/A; tl2 ED Course: 18:41 Patient arrived in ED. bd 18:49 Triage completed. ph 18:49 Ta Mendoza PA is PHCP. cp 18:49 Myron Lima MD is Attending Physician. cp 18:50 Initial lab(s) drawn, by nh, sent to lab. First set of blood cultures drawn by ED jp3 staff, Urine collected: clean catch specimen, clear, frankie colored, Amount Voided: 200mL EKG done, by ED staff, reviewed by Ta MCCANN T\T\S collected, blood band applied to patient. 18:52 Arm band placed on. ph 18:54 Inserted saline lock: 18 gauge in right forearm, using aseptic technique. ph 18:55 Patient has correct armband on for positive identification. Bed in low position. Call ph light in reach. Side rails up X 1. Seizure precautions initiated. monitoring analyst on. Pulse ox on. NIBP on. 19:[address] via stretcher. vm2 19:05 Haresh Contreras MD is Attending Physician. cp 19:08 Urine Dipstick--Ancillary (enter results) Sent. jp3 19:08 Lactate Sent. jp3 19:08 Procalcitonin Sent. jp3 19:08 Digoxin Sent. jp3 19:09 Acetaminophen Sent. jp3 19:09 ETOH Level Sent. jp3 19:09 Salicylate Sent. jp3 19:09 Urine Drug Screen Sent. jp3 19:09 Basic Metabolic Panel Sent. jp3 19:09 CBC with Diff Sent. jp3 19:09 CPK Sent. jp3 19:09 Ckmb Sent. jp3 19:09 Hepatic Function Sent. jp3 19:09 Lipase Sent. jp3 19:09 Magnesium Sent. jp3 19:09 Protime (+inr) Sent. jp3 19:09 Ptt, Activated Sent. jp3 19:10 Troponin (emerg Dept Use Only) Sent. jp3 19:23 CT Head Brain wo Cont In Process Unspecified. EDMS 19:31 Miguel Johnson, RN is Primary Nurse. ao 19:43 XRAY Chest (1 view) In Process Unspecified. EDMS 20:41 Loc Zaman MD is Hospitalizing Provider. cp 21:58 No provider procedures requiring assistance completed. Patient admitted, IV remains in ao place. Administered Medications: 19:37 Drug: Digoxin 0.5 mg Route: IVP; Site: right forearm; tl2 20:57 Follow up: Response: No adverse reaction ao 19:37 Drug: NS 0.9% 500 ml Route: IV; Rate: bolus; Site: right forearm; tl2 22:00 Follow up: IV Status: Completed infusion; IV Intake: 500ml ao 19:46 Drug: Ativan 2 mg Route: IVP; Site: right forearm; ao 20:56 Follow up: Response: No adverse reaction; Anxiety decreased ao 19:46 Drug: Lovenox 1 mg/kg Route: Sub-Q; Site: abdomen; ao 20:56 Follow up: Response: No adverse reaction ao 20:55 Drug: CEREbyx 1 grams Route: IVPB; Site: left antecubital; ao 21:55 Follow up: IV Status: Completed infusion; IV Intake: 100ml ao 21:56 Not Given (Low glucose): Insulin Regular Human 10 units IVP once ao Point of Care Testing: Blood Glucose: 20:45 Blood Glucose: 279 mg/dL; tl2 Ranges: Intake: 21:55 IV: 100ml; Total: 100ml. ao 22:00 IV: 500ml; Total: 600ml. ao Outcome: 20:41 Decision to Hospitalize by Provider. cp 21:58 Admitted to Med/surg accompanied by tech, room 206, with chart. ao 21:58 Condition: stable 21:58 Instructed on the need for admit. 21:59 Patient left the ED. ao Signatures: Dispatcher [employer] EDMS Becky To Patricia, RN RN ph Page, Corey, PA PA cp Ortiz, Alex, RN RN Marli Cintron RN RN tl2 Alma Henao2 Asif Becerril jp3
--- NOTE | 2018-05-30 20:42 | EDPHYS ---
Physician Documentation [facility] Name: Yassine Calles Age: 37 yrs Sex: Male : 1980 Arrival Date: 05/30/2018 Time: 18:41 Bed 4 Private MD: ED Physician Haresh Contreras HPI: 05/30 18:50 This 37 yrs old Male presents to ER via EMS with complaints of seizure. cp 18:50 The patient presents with a history of multiple seizures, a total of 3, with longest cp lasted approximately 5 minutes, in status epilepticus, the episode(s) was witnessed, by a spouse, the . Character of seizure(s): Loss of consciousness: the patient experienced loss of consciousness, Motor activity: legs shaking with arms clenched to chest, Incontinence: none. Seizure onset: this morning. Seizure Hx: the patient has no previous seizure history. Associated injury: Other: tongue laceration. EMS care: Ativan, 2 mg(s), versed, 10 mg(s). Current symptoms: confusion, combative. Historical: - Allergies: 18:52 No Known Drug Allergies; ph - PMHx: 18:52 Atrial Fib; cardiomyopathy; Diabetes - NIDDM; DVT; Hypertension; Myocardial infarction; ph Pulmonary Embolism; Hyperlipidemia; - Immunization history:: Adult Immunizations unknown. - Ebola Screening: : No symptoms or risks identified at this time. - Social history:: Smoking status: unknown. ROS: 19:00 Constitutional: Negative for fever. cp 19:00 Neuro: Positive for seizure activity. cp 19:00 Unable to obtain ROS due to confused patient. Exam: 18:55 ECG was reviewed by the Attending Physician. cp 19:05 Constitutional: The patient appears non-diaphoretic, non-toxic, well developed, well cp nourished. 19:05 Head/Face: Normocephalic, atraumatic. cp 19:05 Eyes: Periorbital structures: appear normal, Pupils: equal, round, and reactive to light and accomodation, Conjunctiva: normal, no exudate, no injection, Sclera: no appreciated abnormality, Lids and lashes: appear normal, bilaterally. 19:05 ENT: External ear(s): are unremarkable, Ear canal(s): are normal, clear, TM's: bulging, is not appreciated, bilaterally, dullness, bilaterally, erythema, is not appreciated, bilaterally, Nose: is normal, Mouth: Lips: moist, Oral mucosa: moist, Posterior pharynx: Airway: no evidence of obstruction, patent, Tonsils: are normal in appearance, swelling, is not appreciated, erythema, is not appreciated, exudate, is not appreciated, Voice: is normal. 19:05 Neck: ROM/movement: is normal, is supple, without pain, no range of motions limitations, no meningismus, no nuchal rigidity. 19:05 Chest/axilla: Inspection: normal, Palpation: is normal, no crepitus, no tenderness. 19:05 Cardiovascular: Rate: tachycardic, Rhythm: irregularly irregular, Heart sounds: rub, not appreciated, gallop, not appreciated, Edema: is not appreciated, JVD: is not appreciated. 19:05 Respiratory: the patient does not display signs of respiratory distress, Respirations: normal, no use of accessory muscles, no retractions, no splinting, no tachypnea, labored breathing, is not present, Breath sounds: are clear throughout, no decreased breath sounds, no stridor, no wheezing. 19:05 Abdomen/GI: Inspection: abdomen appears normal, Bowel sounds: active, all quadrants, Palpation: abdomen is soft and non-tender, in all quadrants. 19:05 Back: pain, is absent, ROM is normal. 19:05 Musculoskeletal/extremity: Exam is negative for decreased range of motion, deformity, edema, injury. 19:05 Skin: cellulitis, is not appreciated, injury, is not appreciated. 19:05 Neuro: Orientation: to person, place, Mentation: confused, sleepy, Cerebellar function: is grossly normal, Motor: moves all fours, strength is normal, Sensation: is normal. Vital Signs: 18:49 BP 110 / 67; Pulse 167; Resp 12; Temp 98.1; Pulse Ox 90% on R/A; ph 19:39 BP 124 / 80; Pulse 130; Resp 26; Pulse Ox 95% on R/A; tl2 19:41 Weight 136.08 kg; tl2 20:12 BP 127 / 73; Pulse 119; Resp 19; Pulse Ox 95% on R/A; tl2 20:58 BP 115 / 69; Pulse 114; Resp 14; Pulse Ox 95% ; Pain 0/10; ao 21:01 BP 115 / 69; Pulse 118; Resp 18; Pulse Ox 95% on R/A; tl2 MDM: 18:55 Patient medically screened. cp 19:00 Differential diagnosis: cerebral vascular accident, drug overdose, cardiac arrhythmia, cp seizure. 20:30 Data reviewed: vital signs, nurses notes, lab test result(s), EKG, radiologic studies, cp CT scan, plain films, and as a result, I will admit patient. 20:30 Test interpretation: by ED physician or midlevel provider: ECG, plain radiologic cp studies. 20:37 Physician consultation: Dat Mccann MD was called at 20:37, was contacted at 20:37, cp regarding consult, patient's condition. 20:39 Physician consultation: Loc Zaman MD was called at 20:40, was contacted at 20:40, cp regarding admission, to the medical/surgical unit. patient's condition. 20:55 Response to treatment: the patient's symptoms have mildly improved after treatment, cp VSS. HR improved and no seizure activity observed in ED, and as a result, I will admit patient. 05/30 18:47 Order name: Basic Metabolic Panel; Complete Time: 20:03 rn 05/30 20:32 Interpretation: Normal except: NA 135; CO2 20; GLUC 326; GFR 65; CA 8.4. cp 05/30 18:47 Order name: CBC with Diff; Complete Time: 19:37 rn 05/30 19:38 Interpretation: Normal except: WBC 15.2; RBC 5.58; PANKAJ% 81.2; LYM% 10.0; NEUT A 12.4. cp 05/30 18:47 Order name: Ckmb; Complete Time: 20:03 rn 05/30 18:47 Order name: CPK; Complete Time: 20:03 rn 05/30 18:47 Order name: Hepatic Function; Complete Time: 20:03 rn 05/30 18:47 Order name: Lipase; Complete Time: 20:03 rn 05/30 18:47 Order name: Magnesium; Complete Time: 20:03 rn 05/30 18:47 Order name: Protime (+inr); Complete Time: 19:37 rn 05/30 18:47 Order name: Ptt, Activated; Complete Time: 19:37 rn 05/30 18:47 Order name: Troponin (emerg Dept Use Only); Complete Time: 20:03 rn 05/30 18:47 Order name: Acetaminophen; Complete Time: 20:03 rn 05/30 18:47 Order name: ETOH Level; Complete Time: 19:54 rn 05/30 18:47 Order name: Salicylate; Complete Time: 19:54 rn 05/30 18:47 Order name: Urine Drug Screen; Complete Time: 19:38 rn 05/30 19:38 Interpretation: Normal except: BZO POSITIVE. 05/30 18:47 Order name: CT Head Brain wo Cont; Complete Time: 19:37 rn 05/30 19:38 Interpretation: Report reviewed. 05/30 18:47 Order name: EKG; Complete Time: 18:48 rn 05/30 18:47 Order name: Digoxin; Complete Time: 20:03 rn 05/30 18:47 Order name: XRAY Chest (1 view); Complete Time: 19:54 rn 05/30 18:49 Order name: Blood Culture Adult (2) 05/30 18:49 Order name: Procalcitonin; Complete Time: 20:03 cp 05/30 18:49 Order name: Lactate; Complete Time: 19:54 cp 05/30 18:58 Order name: Urine Dipstick--Ancillary (enter results); Complete Time: 19:54 05/30 21:51 Order name: Digoxin Level EDNC 05/30 18:47 Order name: Cardiac monitoring; Complete Time: 18:57 rn 05/30 18:47 Order name: EKG - Nurse/Tech; Complete Time: 18:57 rn 05/30 18:47 Order name: IV Saline Lock; Complete Time: 18:57 rn 05/30 18:47 Order name: Labs collected and sent; Complete Time: 18:57 rn 05/30 18:47 Order name: NPO; Complete Time: 18:57 rn 05/30 18:47 Order name: O2 Per Protocol; Complete Time: 18:57 rn 05/30 18:47 Order name: O2 Sat Monitoring; Complete Time: 18:57 rn 05/30 18:47 Order name: Urine Dipstick-Ancillary (obtain specimen); Complete Time: 18:57 rn 05/30 20:33 Order name: Accucheck Blood Glucose: every hour times 2; Complete Time: 21:01 05/30 20:50 Order name: CONS Physician Consult EDMS EC:55 Rate is 158 beats/min. Rhythm is irregularly irregular. QRS interval is normal. QT cp interval is normal. T waves are Inverted in lead III. Interpreted by me. Reviewed by me. Administered Medications: 19:37 Drug: Digoxin 0.5 mg Route: IVP; Site: right forearm; tl2 20:57 Follow up: Response: No adverse reaction ao 19:37 Drug: NS 0.9% 500 ml Route: IV; Rate: bolus; Site: right forearm; tl2 22:00 Follow up: IV Status: Completed infusion; IV Intake: 500ml ao 19:46 Drug: Ativan 2 mg Route: IVP; Site: right forearm; ao 20:56 Follow up: Response: No adverse reaction; Anxiety decreased ao 19:46 Drug: Lovenox 1 mg/kg Route: Sub-Q; Site: abdomen; ao 20:56 Follow up: Response: No adverse reaction ao 20:55 Drug: CEREbyx 1 grams Route: IVPB; Site: left antecubital; ao 21:55 Follow up: IV Status: Completed infusion; IV Intake: 100ml ao 21:56 Not Given (Low glucose): Insulin Regular Human 10 units IVP once ao Point of Care Testing: Blood Glucose: 20:45 Blood Glucose: 279 mg/dL; tl2 Ranges: Critical Glucose Levels:Adult <50 mg/dl or >400 mg/dl <40 mg/dl or >180 mg/dl Disposition: 22:30 Chart complete. 05/31 02:52 Co-signature as Attending Physician, Haresh Contreras MD. ma2 Disposition: 05/30/18 20:41 Hospitalization ordered by Loc Zaman for Observation. Preliminary diagnosis are Epilepsy and recurrent seizures, Chronic atrial fibrillation, Diabetes mellitus due to underlying condition with hyperglycemia. - Bed requested for Telemetry/MedSurg (observation). - Status is Observation. ao - Condition is Stable. - Problem is new. - Symptoms have improved. UTI on Admission? No Signatures: Dispatcher [employer] EDMS Myron Lima MD MD rn Hall, Patricia, RN RN ph Page, Corey, SIOBHAN PA Sadaf Flor RN RN Miguel Johnson RN RN ao Knox, Taylor, RN RN 2 Haresh Contreras MD MD ma2 Corrections: (The following items were deleted from the chart) 05/30 18:50 18:48 Head Brain Wo Cont+CT.RAD.BRZ ordered. EDMS EDMS 20:32 20:04 Normal except: NA 135; CO2 20; GLUC 326; GFR 65. cp cp 20:42 20:41 Hospitalization Ordered by Loc Zaman MD for Observation. Preliminary diagnosis cp is Epilepsy and recurrent seizures; Chronic atrial fibrillation. Bed requested for Telemetry/MedSurg (observation). Status is Observation. Condition is Stable. Problem is new. Symptoms have improved. UTI on Admission? No. cp 21:03 20:42 05/30/2018 20:41 Hospitalization Ordered by Loc Zaman MD for Observation. cg Preliminary diagnosis is Epilepsy and recurrent seizures; Chronic atrial fibrillation; Diabetes mellitus due to underlying condition with hyperglycemia. Bed requested for Telemetry/MedSurg (observation). Status is Observation. Condition is Stable. Problem is new. Symptoms have improved. UTI on Admission? No. cp 21:59 21:03 05/30/2018 20:41 Hospitalization Ordered by Loc Zaman MD for Observation. ao Preliminary diagnosis is Epilepsy and recurrent seizures; Chronic atrial fibrillation; Diabetes mellitus due to underlying condition with hyperglycemia. Bed requested for Telemetry/MedSurg (observation). Status is Observation. Condition is Stable. Problem is new. Symptoms have improved. UTI on Admission? No. cg
[2018-05-30] MEDS ORDERED: INSULIN -REGULAR HUMAN 50 UNIT/0.5 ML ML ONE (20:52)
[2018-05-30] MEDS ORDERED: ACETAMINOPHEN 500 MG TAB PO PRN (20:53)
[2018-05-30] MEDS ORDERED: ONDANSETRON 4 MG/2 ML VIAL IV PRN (20:53)
[2018-05-30] MEDS ORDERED: FOSPHENYTOIN PE 500 MG/10 ML VIAL ONE (20:54)
[2018-05-30] MEDS ORDERED: NA CHLORIDE 0.9% 100 ML IV ONE (20:54)
[2018-05-30] MEDS ORDERED: GLUCAGON 1 MG/VIAL IM PRN (20:57)
[2018-05-30] MEDS ORDERED: D50W 25 GM/50 ML SYRINGE IV PRN (20:57)
[2018-05-30] MEDS: INSULIN -REGULAR HUMAN 50 UNIT/0.5 ML ML SQ SCH (21:00)
[2018-05-30] MEDS: DIGOXIN 0.25 MG/ML AMP IV SCH (21:00)
[2018-05-30] MEDS: ENOXAPARIN 100 MG/ML SYR SQ SCH (21:00)
[2018-05-31] MEDS: PHENYTOIN ER 100 MG CAP PO SCH ×3 (00:12→21:43)
[2018-05-31] MEDS: INSULIN -REGULAR HUMAN 50 UNIT/0.5 ML ML SQ SCH ×5 (00:13→21:43)
[2018-05-31] MEDS: DIGOXIN 0.25 MG/ML AMP IV SCH (03:37)
--- NOTE | 2018-05-31 06:57 | EKG ---
Test Date: 2018-05-30 Test Time: 18:44:26 Real Estate Broker Associate: GOLDIE MEASUREMENT RESULTS: Intervals: Rate: 158 ME: QRSD: 88 QT: 304 QTc: 492 [place]: P: ME: QRS: 60 T: 2 INTERPRETIVE STATEMENTS: Atrial fibrillation with rapid ventricular response Abnormal ECG Compared to ECG 04/02/2018 15:16:55 Sinus rhythm no longer present Electronically Signed On 05-31-18 06:56:53 FURNACE STOCK INSPECTOR by Macario Cherry
[2018-05-31 07:35] LABS: Absolute Lymphocytes (CBC) 3.9 K/uL (0.7-4.9); Absolute Monocytes 1.2 K/uL (0.1-1.3); Absolute Neutrophil 5.7 K/uL (1.8-8.0); Basophils % 0.5 % (0-1.3); Eosinophils % 1.1 % (0-4.4); Hematocrit 47.8 % (39.6-49.0); Lymphocytes % 35.2 % (15.3-44.8); Monocytes % 10.9 % (3.3-12.3); RBC Red Blood Cell Count 5.43 M/uL (4.33-5.43)
[2018-05-31 07:46] LABS: Potassium 3.7 mmol/L (3.5-5.1)
[2018-05-31] MEDS ORDERED: INFLUENZA VACCINE (for 3y+) 0.5 ML DOSE IMVAC ONE (08:00)
[2018-05-31] MEDS: ENOXAPARIN 100 MG/ML SYR SQ SCH (08:56)
[2018-05-31] MEDS ORDERED: DIGOXIN 0.25 MG/ML AMP IV SCH (09:00)
--- NOTE | 2018-05-31 15:28 | P.HP ---
Certification for Inpatient Patient admitted to: Inpatient With expected LOS: >2 Midnights Patient will require the following post-hospital care: None Practitioner: I am a practitioner with admitting privileges, knowledge of patient current condition, hospital course, and medical plan of care. Services: Services provided to patient in accordance with Admission requirements found in Title 42 Section 412.3 of the Code of Federal Regulations Patient History Date of Service: 05/31/18 Primary Care Provider: Austyn Reason for admission: Seizures History of Present Illness: Patient is an office patient of [employer]. he has a history of atrial fib, obstructive sleep apnea and diabetes. He had 3 seizures yesterday. Once in the morning that his saw. He had two more that evening. Denies drugs alcohol or head trauma. Has not had seizures before this. The patient does not recall much details of his evening. He had friends with him in the evening who wittnessed the seizures and called ems. He did have benzodiazepam in his system. was given bythe ems. Blood sugar on admission was 264 He had an elevated heart rate as well. Allergies No Known Drug Allergies Allergy (Verified 04/02/18 22:10) Unknown Home Medications: Aspirin 1 tab PO DAILY 05/30/18 Atorvastatin Calcium 1 tab PO DAILY 05/30/18 Digoxin [Lanoxin] 1 tab PO DAILY 05/30/18 Docosahexanoic AC/Epa [Fish Oil 1,000 MG*] 1 cap PO BID 05/30/18 Furosemide 1 tab PO DAILY 05/30/18 Lisinopril 1 tab PO DAILY 05/30/18 Metformin HCl 1 tab PO BID 05/30/18 Rivaroxaban [Xarelto] 1 tab PO DAILY 05/30/18 - Past Medical/Surgical History Has patient received pneumonia vaccine in the past: No Diabetic: Yes -: A-fib -: Cardiomyopathy -: HTN -: PE -: DVT -: HI -: NIDDM -: HTN - Family History Father -: Other (see notes) Notes: multiple back surgeries, otherwise unaware of any other medical problems - Social History Smoking Status: Current every day smoker Alcohol use: No CD- Drugs: No Caffeine use: No Place of Residence: Home Review of Systems 10-point ROS is otherwise unremarkable General: Weakness Physical Examination - Vital Signs Temperature: 97.5 F Blood Pressure: 137/80 Pulse: 103 Respirations: 18 Pulse Ox (%): 97 - Physical Exam General: Alert, In no apparent distress HEENT: Atraumatic, PERRLA, Mucous membr. moist/pink, EOMI, Sclerae nonicteric Neck: Supple, 2+ carotid pulse no bruit, No LAD, Without JVD or thyroid abnormality Respiratory: Clear to auscultation bilaterally, Normal air movement Cardiovascular: Regular rate/rhythm, Normal S1 S2 Gastrointestinal: Normal bowel sounds, No tenderness Musculoskeletal: No tenderness Integumentary: No rashes Neurological: Normal gait, Normal speech, Normal strength at 5/5 x4 extr, Normal tone, Normal affect Lymphatics: No axilla or inguinal lymphadenopathy - Studies Laboratory Data (last 24 hrs) 05/31/18 06:42: Sodium 140, Potassium 3.7, BUN 16, Creatinine 0.94, Glucose 135 H 05/31/18 06:42: WBC 11.0 H D, Hgb 16.5, Hct 47.8, Plt Count 267 05/30/18 18:50: PT 13.8 H, INR 1.17, APTT 61.4 H 05/30/18 18:50: WBC 15.2 H, Hgb 16.7, Hct 48.7, Plt Count 303 05/30/18 18:50: Sodium 135 L, Potassium 3.7, BUN 15, Creatinine 1.24, Glucose 326 H, Magnesium 2.4 D, Total Bilirubin 0.5, AST 38 H, ALT 79 H, Alkaline Phosphatase 109, Lipase 232 Assessment and Plan - Problems (Diagnosis) (1) Seizures Current Visit: Yes Status: Acute Plan: will continue with the phenytoinin. Consult to Dr. Mccann. He has had repeated seizures. Most likely will need to be on for a while (2) Diabetes 1.5, managed as type 2 Current Visit: Yes Status: Acute Plan: Continue metformin. Will check his a1c (3) HTN (hypertension) Current Visit: Yes Status: Acute Plan: restart lisinopril Qualifiers: Hypertension type: essential hypertension Qualified Code(s): I10 - Essential (primary) hypertension (4) Obstructive sleep apnea Current Visit: Yes Status: Acute Plan: Has not gotten his testing or cpap. will have to arrange as an outpatient (5) Atrial fibrillation Onset Date: 04/03/18 Current Visit: No Status: Acute Discharge Plan: Home Plan to discharge in: 48 Hours - Advance Directives Does patient have a Living Will: No Does patient have a Durable POA for Healthcare: No - Code Status/Comfort Care Code Status Assessed: No Code Status: Full Code Physician Review: Patient Assessed, Agree with Above Assessment and Plan Critical Care: No Time Spent Managing Pts Care (In Minutes): 45
[2018-05-31] MEDS: METFORMIN HCL 500 MG TAB PO SCH (16:51)
[2018-05-31] MEDS ORDERED: RIVAROXABAN 20 MG TABLET PO SCH (17:00)
[2018-05-31] MEDS ORDERED: HOME MED 1 EA UNK (Metformin Hcl [Metformin Hcl] 1 TAB) PO SCH (21:00)
[2018-05-31] MEDS: ATORVASTATIN 10 MG TAB PO SCH (21:43)
--- NOTE | 2018-05-31 21:44 | RAD REPORT ---
EXAM DESCRIPTION: MRI - Brain Wo Cont - 05/31/2018 9:22 pm CLINICAL HISTORY: Seizures COMPARISON: None. TECHNIQUE: Sagittal T1-weighted images were obtained along with axial PD, heavily T2-weighted and T2 -FLAIR images. Axial DWI and ADC mapping sequences were also obtained along with coronal heavily T2-w eighted images. FINDINGS: No intracranial hemorrhage, mass or acute infarction. There is no edema or shift of midlin e structures. No extra-axial fluid collections. Falcon-matter/white matter junction is preserved. Signa l voids are seen as a normal finding in the major intracranial vessels. A few punctate white matter s ignal abnormalities are present. Assessment is limited. There is motion degradation throughout most s equences. No medial temporal lobe asymmetry appreciated. No globe or orbital content abnormality. Mastoid air cells and paranasal sinuses are clear. IMPRESSION: Negative non-contrast MRI of the Brain. A few punctate white matter signal abnormalities are present, nonspecific and difficult to fully eval uate given the extent of motion.
--- NOTE | 2018-05-31 23:59 | CON ---
Reason For Consultation: New onset seizures. History Of Present Illness: Mr. Calles is a 37-year-old right-handed patient who is admitted after 3 seizures within short duration. The patient's was in the room and assisted with information. On the that is yesterday, the patient woke up around 6 a.m. and was getting ready for work when h is noted he had a seizure. She said his head turned off to the right and had rhythmic shaking, his eyes rolled back, he slumped down, his arms came towards his face, legs extended. The activity c ontinued for about 2-3 minutes, and he remained confused for at least 45 minutes longer. Emergency m edical services eventually contacted and the patient subsequently had 2 more very similar events wher e again head turned to the right, arms flexed toward the face, and legs extended and shook. He did b ite his tongue and lose urine control with 2 of the events. After the last one, he remained confused for about 3 hours. At [facility], his head CT scan showed no acute ischemic or hemorrhagic change. His blood work did show demargination, elevated white count up to 15.2, neutrophils were 81 .2. Repeat complete blood count with differential today showed WBCs and decreased to 11.0 with kelly l neutrophils. His coagulation panel was normal. Chemistries show elevated glucose ranging from 129 to 256. Hemoglobin A1c is 9.7, calcium 8.2, otherwise electrolytes are unremarkable. Liver functio n studies showed elevated AST of 38 and ALT of 79. Procalcitonin was normal at 0.12 and toxicology w as positive for benzodiazepines. Plan: The patient was given fosphenytoin and put on Dilantin 200 mg twice daily and continued on his metformin, lisinopril, even Xarelto for DVT prophylaxis, and digoxin along with his dyslipidemia med ications and aspirin. Since hospitalization, no additional seizure activity. Past Medical History: Atrial fibrillation, cardiomyopathy, hypertension, prior pulmonary embolus, de ep vein thrombosis, myocardial infarction, [id number] diabetes mellitus, hypertension. Allergies: NO KNOWN DRUG ALLERGIES. Medications At Home: Aspirin 81 mg daily, atorvastatin daily, digoxin daily, fish oil 1000 mg twice daily, Lasix daily, lisinopril daily, metformin twice daily, and Xarelto daily. Family History: Back problems involving his father. No family history of seizures. Social History: The patient smokes daily. Occasional alcohol use. No illegal drug use. Review of Systems: He denies any recent fevers, chills, nausea, vomiting, myalgias, arthralgias, headaches, or weight ch ti. No stress fractures. No other precipitating events. Physical Examination: Vital Signs: Blood pressure 133/94, pulse 91, respiratory rate 16, temperature 97.6. Oxygen saturat ion 97% on room air. Weight 255 pounds. Height 6 feet. General: Mr. Calles is resting in bed. is at bedside. HEENT: He is normocephalic, atraumatic. Sclerae are anicteric. Oropharynx is pink and moist. Neck: Supple. Chest: Clear. Heart: Regular. Extremities: Show no edema, cyanosis, or clubbing. Neurologic: Alert, oriented to situation, place, and person. No expressive or receptive aphasias. Cranial nerves are intact 2 through 12. Motor examination intact in upper and lower extremities. Se nsory examination intact with stocking-glove loss. Reflexes are depressed in the upper and lower ext remities. Coordination intact in the upper and lower extremities. Assessment: Mr. Calles is a 37-year-old patient with new onset seizures of unclear etiology. He pena s have an EEG pending. He should have a brain MRI. Plan: 1.As indicated, EEG and brain MRI to be followed. 2.Continue with the Dilantin 300 mg at night. 3.After discharge, follow up in clinic in 1 month. If need be, the patient may be monitored by outp atient video EEG monitoring for event characterization. He was instructed not to drive or operate he [employer] for the next 3 months. If he remains seizure-free, he may resume those activities, oth erwise as indicated. Follow up with Dr. Mccann's clinic in 1 month. KARL/JOVANNI Voice ID: [id number] Report ID: [id number]
[2018-06-01 05:56] LABS: HDL Cholesterol 27 mg/dL (40-60); LDL Cholesterol, Calculated 121 (<130)
[2018-06-01 07:04] LABS: Absolute Monocytes 1.1 K/uL (0.1-1.3); Absolute Neutrophil 4.8 K/uL (1.8-8.0); Basophils % 0.4 % (0-1.3); Eosinophils % 2.3 % (0-4.4); Hematocrit 47.6 % (39.6-49.0); Lymphocytes % 39.2 % (15.3-44.8); MPV 9.3 fL (7.6-11.3); Monocytes % 10.8 % (3.3-12.3); RBC Red Blood Cell Count 5.45 M/uL (4.33-5.43)
[2018-06-01 07:29] LABS: ALT/SGPT 59 U/L (12-78); AST/SGOT 31 U/L (15-37); Alkaline Phosphatase 113 U/L (45-117); BUN Blood Urea Nitrogen 12 mg/dL (7-18); Bicarbonate 25 mmol/L (21-32); Bilirubin Total 0.5 mg/dL (0.2-1.0); Glucose Level 225 mg/dL (74-106); Potassium 3.7 mmol/L (3.5-5.1); Sodium Level 139 mmol/L (136-145)
--- NOTE | 2018-06-01 08:00 | ECHO ---
HEIGHT: 61 ft 0 in WEIGHT: 255 lb 3 oz DATE OF STUDY: 05/31/[address]: Ta Mendoza 2-DIMENSIONAL: YES M.MODE: YES DOPPLER: YES COLOR FLOW: YES TDS: PORTABLE: DEFINITY: BUBBLE STUDY: DIAGNOSIS: CHRONIC ATRIAL FIBRILLATION CARDIAC HISTORY: CATHERIZATION: NO SURGERY: NO PROSTHETIC VALVE: NO PACEMAKER: NO MEASUREMENTS (cm) DIASTOLIC (NORMALS) SYSTOLIC (NORMALS) IVSd 1.2 (0.6-1.2) LA Diam 3.7 (1.9-4.0) LVEF 68% LVIDd 4.1 (3.5-5.7) LVIDs 2.6 (2.0-3.5) %FS 38% LVPWd 1.3 (0.6-1.2) Ao Diam 3.3 (2.0-3.7) 2 DIMENSIONAL ASSESSMENT: RIGHT ATRIUM: NORMAL LEFT ATRIUM: NORMAL RIGHT VENTRICLE: NORMAL LEFT VENTRICLE: NORMAL TRICUSPID VALVE: NORMAL MITRAL VALVE: NORMAL PULMONIC VALVE: NORMAL AORTIC VALVE: NORMAL PERICARDIAL EFFUSION: NONE AORTIC ROOT: NORMAL LEFT VENTRICULAR WALL MOTION: NORMAL DOPPLER/COLOR FLOW: NORMAL COMMENTS: ATRIAL FIBRILLATION. NORMAL LEFT VENTRCULAR SIZE AND FUNCTION. NO THROMBUS. NORMAL LEFT ATRIUM SIZE. TECHNOLOGIST: MICHAEL MAJANO
[2018-06-01] MEDS ORDERED: SOTALOL HCL 80 MG TAB PO ONE (08:47)
[2018-06-01] MEDS ORDERED: DIGOXIN 0.25 MG TABLET PO SCH (09:00)
[2018-06-01] MEDS: RIVAROXABAN 20 MG TABLET PO SCH (09:32)
[2018-06-01] MEDS: METFORMIN HCL 500 MG TAB PO SCH ×2 (09:32→17:14)
[2018-06-01] MEDS: PHENYTOIN ER 100 MG CAP PO SCH ×2 (09:33→21:31)
[2018-06-01] MEDS: ASPIRIN 81 MG CHEWABLE TABLET PO SCH (09:33)
[2018-06-01] MEDS: PANTOPRAZOLE 40MG TABLET PO SCH (09:33)
[2018-06-01] MEDS: LISINOPRIL 10 MG TAB PO SCH (09:33)
[2018-06-01] MEDS: INSULIN -REGULAR HUMAN 50 UNIT/0.5 ML ML SQ SCH ×4 (09:35→21:30)
--- NOTE | 2018-06-01 13:05 | P.PN ---
Subjective Date of Service: 06/01/18 Primary Care Provider: Austyn Chief Complaint: Seizures Subjective: Improving (possible defib) Review of Systems 10-point ROS is otherwise unremarkable Physical Examination - Vital Signs Temperature: 97.6 F Blood Pressure: 137/91 Pulse: 101 Respirations: 18 Pulse Ox (%): 96 - Physical Exam General: Alert, In no apparent distress HEENT: Atraumatic, PERRLA, EOMI Neck: Supple, JVD not distended Respiratory: Clear to auscultation bilaterally, Normal air movement Cardiovascular: Regular rate/rhythm, Normal S1 S2 Gastrointestinal: Normal bowel sounds, No tenderness Musculoskeletal: No tenderness Integumentary: No rashes Neurological: Normal speech, Normal tone, Normal affect Lymphatics: No axilla or inguinal lymphadenopathy Assessment & Plan - Problems (Diagnosis) (1) Atrial fibrillation Onset Date: 04/03/18 Current Visit: No Status: Acute Plan: Patient was seen by Dr. Cherry. The patient may be cardiovert. He has had an echo. (2) Seizures Onset Date: 06/01/18 Current Visit: Yes Status: Acute Plan: will continue with the phenytoinin. Consult to Dr. Mccann. He has had repeated seizures. Most likely will need to be on for a while (3) Diabetes 1.5, managed as type 2 Onset Date: 06/01/18 Current Visit: Yes Status: Acute Plan: Continue metformin. Will check his a1c (4) HTN (hypertension) Onset Date: 06/01/18 Current Visit: Yes Status: Acute Plan: restart lisinopril Qualifiers: Hypertension type: essential hypertension Qualified Code(s): I10 - Essential (primary) hypertension (5) Obstructive sleep apnea Onset Date: 06/01/18 Current Visit: Yes Status: Acute Plan: Has not gotten his testing or cpap. will have to arrange as an outpatient Discharge Plan: Home Plan to discharge in: 24 Hours - Code Status/Comfort Care Code Status Assessed: No Code Status: Full Code Physician Review: Patient Assessed, Agree with Above Assessment and Plan Critical Care: No Time Spent Managing Pts Care (In Minutes): 20
--- NOTE | 2018-06-01 13:22 | CON ---
Reason For Cardiology Consult: Atrial fibrillation. History Of Present Illness: Mr. Calles has had atrial fibrillation since 2013. We have had him unde r good control. He came to the hospital because of seizure-like activity. His MRI shows punctate st rokes and it is believed to be at least part of the cause for his seizures. The seizure are new onse t, and he is now taking Dilantin. He has not had a seizure in about 48 hours. He was in our hospita in March. He was in sinus rhythm then, and he spends most of his time in sinus rhythm. Outpatient Medications: Used to be sotalol. The last time I saw, he was taking sotalol, he no longe r is. He takes Xarelto 20, fish oil, metformin, lisinopril, Lasix atorvastatin, digoxin, and aspirin . Physical Examination: General: He is 37 years old, appears to be older than his stated age, 6 feet 1 inch, 255 pounds, obe se, alert, oriented, not in distress. Lungs: Clear. Heart: Irregularly irregular, rapid. Going about 120 beats per minute. Recommendation: I will recommend that we stop digoxin and give Betapace if he is still in normal rhy thm or still in atrial fibrillation tomorrow. We will do a cardioversion tomorrow. I am not sure wh at the reason for him stopping Betapace was, but I think it is a good drug to try now, and if he beco mes too bradycardic on it, we will reduce the dose or perhaps switch to another medicine. His echoca rdiogram from yesterday shows atrial fibrillation, ejection fraction 68%. No wall motion abnormality or significant valvular disease. ENRIQUE/JOVANNI Voice ID: [id number] Report ID: [id number]
[2018-06-01] MEDS: SOTALOL HCL 80 MG TAB PO SCH (18:26)
[2018-06-01] MEDS: ATORVASTATIN 10 MG TAB PO SCH (21:31)
[2018-06-02] MEDS: SOTALOL HCL 80 MG TAB PO SCH ×2 (05:22→17:19)
[2018-06-02] MEDS: PANTOPRAZOLE 40MG TABLET PO SCH (07:30)
[2018-06-02] MEDS: RIVAROXABAN 20 MG TABLET PO SCH (08:00)
[2018-06-02] MEDS: METFORMIN HCL 500 MG TAB PO SCH ×2 (08:00→17:19)
[2018-06-02 08:27] LABS: Absolute Lymphocytes (CBC) 2.5 K/uL (0.7-4.9); Absolute Monocytes 0.9 K/uL (0.1-1.3); Absolute Neutrophil 5.2 K/uL (1.8-8.0); Basophils % 0.9 % (0-1.3); Eosinophils % 2.1 % (0-4.4); Hematocrit 51.1 % (39.6-49.0); Lymphocytes % 28.3 % (15.3-44.8); MPV 8.8 fL (7.6-11.3); RBC Red Blood Cell Count 5.88 M/uL (4.33-5.43)
[2018-06-02] MEDS: INSULIN -REGULAR HUMAN 50 UNIT/0.5 ML ML SQ SCH ×4 (08:29→20:53)
[2018-06-02 08:49] LABS: ALT/SGPT 65 U/L (12-78); AST/SGOT 34 U/L (15-37); Albumin 3.1 g/dL (3.4-5.0); Alkaline Phosphatase 123 U/L (45-117); BUN Blood Urea Nitrogen 12 mg/dL (7-18); Bicarbonate 24 mmol/L (21-32); Bilirubin Total 0.5 mg/dL (0.2-1.0); Glucose Level 263 mg/dL (74-106); Potassium 4.2 mmol/L (3.5-5.1); Protein, Total 7.3 g/dL (6.4-8.2); Sodium Level 139 mmol/L (136-145)
[2018-06-02] MEDS: ASPIRIN 81 MG CHEWABLE TABLET PO SCH (09:00)
[2018-06-02] MEDS: PHENYTOIN ER 100 MG CAP PO SCH ×2 (09:00→20:52)
[2018-06-02] MEDS: LISINOPRIL 10 MG TAB PO SCH (09:00)
[2018-06-02 09:02] LABS: Blood Morphology Comment NOT SEEN (NOT SEEN); Platelet Estimate ADEQ; Urine White Blood Cell Casts OK
[2018-06-02] MEDS ORDERED: FLUMAZENIL 0.1 MG/ML (5 mL VIAL) IV ONE (10:55)
[2018-06-02] MEDS ORDERED: MIDAZOLAM HCL 2 MG/2 ML INJ ONE ×2 (10:55→11:06)
--- NOTE | 2018-06-02 11:41 | OP ---
Surgeon: Macario Cherry MD Procedure: Direct current cardioversion. Indication: Persistent atrial fibrillation. Procedure In Detail: The patient was fasting. He had been anticoagulated for years with Xarelto, fe lt to be low embolic risk. He has been in atrial fibrillation for an unknown period of time, but he was in sinus rhythm in March of 2018. He was loaded with sotalol, brought to the intensive care u nit in a fasting state. Anterior-posterior paddles were placed, sedated with Versed, titrated to an adequate level of sedation, 12.5 mg was used. Shock was delivered through the anterior-posterior pad dles, synchronized the QRS. It was unsuccessful we delivered 3 shocks in total; 200 joules, 300 joul es, and 360 joules. Each was unsuccessful, so we will have him visit an environmental science professor consider AFib ablation. ENRIQUE/JOVANNI Voice ID: [id number] Report ID: [id number]
--- NOTE | 2018-06-02 12:11 | P.PN ---
Subjective Date of Service: 06/02/18 Primary Care Provider: Austyn Chief Complaint: Seizures Subjective: No new changes (Patient had an unsucessful defibrillation with Dr. Cherry this morning) Review of Systems 10-point ROS is otherwise unremarkable Physical Examination - Vital Signs Temperature: 97.4 F Blood Pressure: 132/78 Pulse: 81 Respirations: 20 Pulse Ox (%): 96 - Physical Exam General: Alert, In no apparent distress HEENT: Atraumatic, PERRLA, EOMI Neck: Supple, JVD not distended Respiratory: Clear to auscultation bilaterally, Normal air movement Cardiovascular: Regular rate/rhythm, Normal S1 S2 Gastrointestinal: Normal bowel sounds, No tenderness Musculoskeletal: No tenderness Integumentary: No rashes Neurological: Normal speech, Normal tone, Normal affect Lymphatics: No axilla or inguinal lymphadenopathy Assessment & Plan - Problems (Diagnosis) (1) Atrial fibrillation Onset Date: 04/03/18 Current Visit: No Status: Acute Plan: May try defib again in the morning. Most likely will plan to discharge and medical management. Will need a follow up with EP. Dr. Morales would be an excellent choice. I also believe that the patient has sleep apnea. We can get an order for a home sleep study. Almost all of a fib patients having sleep apnea. (2) Seizures Onset Date: 06/01/18 Current Visit: Yes Status: Acute Plan: Negative MRI. from Dr. Foster perspective he can go home on 300mg of dilantin at bedtime (3) Diabetes 1.5, managed as type 2 Onset Date: 06/01/18 Current Visit: Yes Status: Acute Plan: Continue metformin. Will check his a1c (4) HTN (hypertension) Onset Date: 06/01/18 Current Visit: Yes Status: Acute Plan: restart lisinopril Qualifiers: Hypertension type: essential hypertension Qualified Code(s): I10 - Essential (primary) hypertension (5) Obstructive sleep apnea Onset Date: 06/01/18 Current Visit: Yes Status: Acute Plan: Has not gotten his testing or cpap. will have to arrange as an outpatient Discharge Plan: Home Plan to discharge in: 24 Hours - Code Status/Comfort Care Code Status Assessed: No Code Status: Full Code Physician Review: Patient Assessed, Agree with Above Assessment and Plan Critical Care: No Time Spent Managing Pts Care (In Minutes): 30
[2018-06-02] MEDS: ATORVASTATIN 10 MG TAB PO SCH (20:52)
[2018-06-03] MEDS: SOTALOL HCL 80 MG TAB PO SCH (06:01)
[2018-06-03 07:09] LABS: Absolute Neutrophil 6.1 K/uL (1.8-8.0); Basophils % 1.2 % (0-1.3); Eosinophils % 1.9 % (0-4.4); Hematocrit 51.6 % (39.6-49.0); Lymphocytes % 28.9 % (15.3-44.8); MPV 8.9 fL (7.6-11.3); Monocytes % 9.9 % (3.3-12.3)
[2018-06-03 07:31] LABS: ALT/SGPT 71 U/L (12-78); AST/SGOT 41 U/L (15-37); Albumin 3.2 g/dL (3.4-5.0); Alkaline Phosphatase 93 U/L (45-117); BUN Blood Urea Nitrogen 12 mg/dL (7-18); Bicarbonate 27 mmol/L (21-32); Bilirubin Total 0.9 mg/dL (0.2-1.0); Glucose Level 208 mg/dL (74-106); Protein, Total 7.3 g/dL (6.4-8.2); Sodium Level 138 mmol/L (136-145)
[2018-06-03 09:19] VITALS: O2SAT 97
[2018-06-03] MEDS: INSULIN -REGULAR HUMAN 50 UNIT/0.5 ML ML SQ SCH ×2 (09:21→12:02)
[2018-06-03] MEDS: RIVAROXABAN 20 MG TABLET PO SCH (09:22)
[2018-06-03] MEDS: ASPIRIN 81 MG CHEWABLE TABLET PO SCH (09:22)
[2018-06-03] MEDS: PANTOPRAZOLE 40MG TABLET PO SCH (09:22)
[2018-06-03] MEDS: PHENYTOIN ER 100 MG CAP PO SCH (09:22)
[2018-06-03] MEDS: METFORMIN HCL 500 MG TAB PO SCH (09:22)
[2018-06-03] MEDS: LISINOPRIL 10 MG TAB PO SCH (09:23)
--- NOTE | 2018-06-03 12:51 | P.DS ---
Admission Date: 05/31/18 Discharge Date: 06/03/18 Primary Care Provider: Austyn Reason for Admission: Seizures - Problems (1) Atrial fibrillation Onset Date: 04/03/18 Current Visit: No Status: Acute (2) Seizures Onset Date: 06/01/18 Current Visit: Yes Status: Acute (3) Diabetes 1.5, managed as type 2 Onset Date: 06/01/18 Current Visit: Yes Status: Acute (4) HTN (hypertension) Onset Date: 06/01/18 Current Visit: Yes Status: Acute Qualifiers: Hypertension type: essential hypertension Qualified Code(s): I10 - Essential (primary) hypertension (5) Obstructive sleep apnea Onset Date: 06/01/18 Current Visit: Yes Status: Acute Brief History of Present Illness: Patient is an office patient of [employer]. he has a history of atrial fib, obstructive sleep apnea and diabetes. He had 3 seizures yesterday. Once in the morning that his saw. He had two more that evening. Denies drugs alcohol or head trauma. Has not had seizures before this. The patient does not recall much details of his evening. He had friends with him in the evening who wittnessed the seizures and called ems. He did have benzodiazepam in his system. was given bythe ems. Blood sugar on admission was 264 He had an elevated heart rate as well. Hospital Course: Patient presented with seizures. Was found to be in afib. He was started on phenytoin by Dr. Mccann. Had a negative MRI. However the patient remained in afib. Was seen by Dr. Cherry who attempted cardioversion on the patient. Unfortunately he was not able to convert the patient. Will discharge him on sotalol and pradaxa. The plan is to work him up for sleep apnea as an out patient and refer him to Dr. Nata Morales for EP workup. His a1c is 9.7. Keep him on metformin. He is to follow up with me. Start the patient on victoza or other medications to help improve his blood sugar control. Thank you for allowing us to take part in the pateints care Vital Signs/Physical Exam: Temp Pulse Resp BP Pulse Ox 97 F 94 H 18 129/90 97 06/03/18 08:00 06/03/18 04:00 06/03/18 08:00 06/03/18 08:00 06/03/18 08:00 General: Alert, In no apparent distress HEENT: Atraumatic, PERRLA, EOMI Neck: Supple, JVD not distended Respiratory: Clear to auscultation bilaterally, Normal air movement Cardiovascular: Regular rate/rhythm, Normal S1 S2 Gastrointestinal: Normal bowel sounds, No tenderness Musculoskeletal: No tenderness Integumentary: No rashes Neurological: Normal speech, Normal tone, Normal affect Lymphatics: No axilla or inguinal lymphadenopathy Laboratory Data at Discharge: WBC 10.5 K/uL (4.3-10.9) D 06/03/18 06:58 Hgb 17.9 g/dL (13.6-17.9) 06/03/18 06:58 Hct 51.6 % (39.6-49.0) H 06/03/18 06:58 Plt Count 297 K/uL (152-406) 06/03/18 06:58 PT 13.8 SECONDS (9.5-12.5) H 05/30/18 18:50 INR 1.17 05/30/18 18:50 APTT 61.4 SECONDS (24.3-36.9) H 05/30/18 18:50 Sodium 138 mmol/L (136-145) 06/03/18 06:58 Potassium 4.0 mmol/L (3.5-5.1) 06/03/18 06:58 BUN 12 mg/dL (7-18) 06/03/18 06:58 Creatinine 0.92 mg/dL (0.55-1.3) 06/03/18 06:58 Glucose 208 mg/dL (74-106) H 06/03/18 06:58 Magnesium 2.4 mg/dL (1.8-2.4) D 05/30/18 18:50 Total Bilirubin 0.9 mg/dL (0.2-1.0) 06/03/18 06:58 AST 41 U/L (15-37) H 06/03/18 06:58 ALT 71 U/L (12-78) 06/03/18 06:58 Alkaline Phosphatase 93 U/L (45-117) 06/03/18 06:58 Triglycerides 184 mg/dL (<150) H 06/01/18 05:24 Cholesterol 185 mg/dL (<200) 06/01/18 05:24 HDL Cholesterol 27 mg/dL (40-60) L 06/01/18 05:24 Cholesterol/HDL Ratio 6.85 06/01/18 05:24 Lipase 232 U/L (73-393) 05/30/18 18:50 Home Medications: Aspirin 1 tab PO DAILY 05/30/18 Atorvastatin Calcium 1 tab PO DAILY 05/30/18 Docosahexanoic AC/Epa [Fish Oil 1,000 MG*] 1 cap PO BID 05/30/18 Furosemide 1 tab PO DAILY 05/30/18 Lisinopril 1 tab PO DAILY 05/30/18 Metformin HCl 1 tab PO BID 05/30/18 Phenytoin Sodium Extended [Dilantin] 300 mg PO DAILY AFTER SUPPER 90 Days #90 capsule 06/01/18 Dabigatran Etexilate Mesylate [Pradaxa] 150 mg PO BID 90 Days #180 capsule 06/03 Digoxin [Lanoxin] 1 tab PO DAILY 90 Days #90 tablet 06/03/18 Sotalol HCl [Betapace*] 80 mg PO BID 6AM 6PM 90 Days #180 tab 06/03/18 New Medications: Dabigatran Etexilate Mesylate [Pradaxa] 150 mg PO BID 90 Days #180 capsule Digoxin [Lanoxin] 1 tab PO DAILY 90 Days #90 tablet Phenytoin Sodium Extended [Dilantin] 300 mg PO DAILY AFTER SUPPER 90 Days #90 capsule Sotalol HCl [Betapace*] 80 mg PO BID 6AM 6PM 90 Days #180 tab Diet: ADA Followup: Dat Mccann MD [ASSOCIATE-ACTIVE - CAN ADMIT] - (1 month ) Loc Zaman MD [ACTIVE - CAN ADMIT] - 1-2 Weeks Time spent managing pt's care (in minutes): 35
[2018-06-03 15:15] VITALS: BP 129/70; TEMP 97.4
== END 2018-06-03 13:37 | disposition home or self-care (01) | DRG 101 ==
LOC: ER 18:34 → ERHOLD 20:56 → 2ND 21:35 → OBSVTOIN 05-31 08:25 → 3RD-ICU 06-02 10:42 → 2ND 06-02 12:00
PROVIDERS: ADMIT Internal Medicine; ATTEND Internal Medicine
PROC: 5A2204Z Restoration of Cardiac Rhythm, Single (ICD-10-PCS; principal; 2018-06-02)
DX: G40.909 Epilepsy, unspecified, not intractable, without status epilepticus (principal); I42.9 Cardiomyopathy, unspecified; G47.33 Obstructive sleep apnea (adult) (pediatric); Z79.84 Long term (current) use of oral hypoglycemic drugs; I48.91 Unspecified atrial fibrillation; Z79.01 Long term (current) use of anticoagulants; Z86.711 Personal history of pulmonary embolism; Z86.718 Personal history of other venous thrombosis and embolism; I25.2 Old myocardial infarction; F17.210 Nicotine dependence, cigarettes, uncomplicated; E13.9 Other specified diabetes mellitus without complications; I10 Essential (primary) hypertension
CPT/HCPCS: 36415; 70450; 70551; 71045; 80048; 80053; 80061; 80076; 80162; 80307; 80320; 80329; 81003; 82550; 82553; 82962; 83036; 83605; 83690; 83735; 84145; 84443; 84484; 85025; 85610; 85730; 87040; 87205; 93005; 93306; 96361; 96365; 96372; 96375; 99285; J1160; J1650; J2250; Q2009

== ENCOUNTER 2021-06-03 03:10 | Inpatient (IN) | payer OTHER, SELFPAY ==
--- OUTSIDE RECORDS SUMMARY | 2021-06-03 03:18 | XMS REPORT | Continuity of Care Document ---
:1980 Author Organization [facility] t Address [address] [place] [address] Care Team Providers Name Role Phone Alvaro Aviles MD Attending Clinician Doctor Unassigned, Name Attending Clinician Unavailable Payers Payer Name Policy Type Policy Number Effective Date Expiration Date S ource Problems Condition Condition Condition Status Onset Resolution Last Treating Co mments Source Name Details Category Date Date Treatment Clinician Date History of History of Disease Active 2020-0 U nivers seizure seizure 1-21 ity of 00:00: [address] History of History of Disease Active 2020-0 U nivers TIA TIA 1-21 ity of [place] ischemic 00 Medica l attack) attack) Branch 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 1-15 it y of tosis tosis 00:00: [address] Hepatomega Hepatomega Disease Active 2016-05 U nivers ly ly 0-29 ity of 00:00: [address] Abnormal Abnormal Disease Active 2016-05 Unive rs LFTs LFTs 0-29 ity of 00:00: [address] Branch Right Right Disease Active 2016-05 Univers renal mass renal mass 0-29 it y of 00:00: [address] LAD LAD Disease Active 2016-05 Univers (lymphaden (lymphaden 0-29 it y of opathy), opathy), 00:00: [place] mediastina mediastina 00 Me dical l l Branch Fatty Fatty Disease Active 2016-05 Univers liver liver 0-26 ity of 00:00: [address] Branch 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 0-26 ity of diabetes diabetes 00:00: [place] mellitus mellitus 00 Medica l without without Branch complicati complicati on, on, without without long-term long-term current current use of use of insulin insulin Obesity Obesity Disease Active 2016-05 Univers (BMI (BMI 0-16 ity of 30-39.9) 30-39.9) 00:00: [place] [id number] Medical Branch Acute Acute Disease Active 2016-05 Univers pulmonary pulmonary 0-16 ity of embolism embolism 00:00: [address] Chest pain Chest pain Disease Active 2016-05 U nivers 0-16 ity of 00:00: [address] Atrial Atrial Problem Active [facility] fibrillati fibrillati Sridevi kes - on, on, Memoria unspecifie unspecifie l d type d type Outpati ent Clinics Hyperlipid Hyperlipid Problem Active [facility] - unspecifie unspecifie Me moria d d l hyperlipid hyperlipid Ou tpati emia type emia type ent Clinics Sleep Sleep Problem Active [facility] disturbanc disturbanc Sridevi kes - e e Memoria l Outpati ent Clinics Essential Essential Problem Active [facility] (primary) (primary) [facility] - hypertensi hypertensi Me moria on on l Outpati ent Clinics Type 2 Type [address] [facility] diabetes diabetes [facility] - mellitus mellitus Memori a without without l complicati complicati Ou tpati on, on, ent without without Clinics long-term long-term current current use of use of insulin insulin Adjustment Adjustment Problem Active [facility] disorder disorder [facility] - with with Memoria anxious anxious l mood mood Outpati ent Clinics Anxiety Anxiety Problem Active [facility] disorder, disorder, [facility] - unspecifie unspecifie Me moria d d l Outpati ent Clinics Major Major Problem Active [facility] depressive depressive Sridevi kes - disorder, disorder, Wero jorgito single single l episode, episode, Outpat i unspecifie unspecifie en t d d Clinics Cardiomyop Cardiomyop Disease Active U nivers athy athy ity [facility] A-fib A-fib Disease Active Univers ity of [facility] High High Disease Active Univers cholestero cholestero it y of l l [facility] HTN HTN Disease Active Univers (hypertens (hypertens it y of ion) ion) [facility] Allergies, Adverse Reactions, Alerts Allergy Allergy Status Severity Reaction(s) Onset Inactive Treating Comm ents Source Name Type Date Date Clinician No Known DA Active U REYNALDO Allergarnie 10-30 [place] 00:00: [address] Social History Social Habit Start Date Stop Date Quantity Comments Source History of tobacco Cigarette Smoker University of use [facility] Sex Assigned At [facility] of [facility] Tobacco use and 2019-06-11 2019-06-11 Never used Universit y of exposure 00:00:00 00:00:00 [facility] Cigarettes smoked 2019-06-11 2019-06-11 Univers ity of current (pack per 00:00:00 00:00:00 [facility] ) - Reported Branch Cigarette 2019-06-11 2019-06-11 University of pack-years 00:00:00 00:00:00 [facility] Alcohol intake 2019-06-11 2019-06-11 Current University of 00:00:00 00:00:00 non-drinker of [facility] alcohol Branch (finding) Alcohol Comment 2017-03-06 2017-03-06 social drinker Unive rsity of 00:00:00 00:00:00 [facility] Smoking Status Start Date Stop Date Source Current every day smoker 2019-06-11 00:00:00 Uni versity of [facility] Medications Ordered Filled Start Stop Current Ordering Indication Dosage Frequency Signature Comments Components Source Medication Medication Date Date Medication? Clinician (SIG) Name Name OZZY Huerta 2019-05 Yes [id number] TAKE 1 Univers mg tablet 05-30 TABLET BY ity o f 00:00: MOUTH EVERY DAY [facility] OZZY 2019-05 Yes [id number] TAKE 1 Univers mg tablet 05-3009 TABLET BY ity o f 00:00: MOUTH EVERY DAY [facility] OZZY Huerta 2019-0 Yes [id number] TAKE 1 Univers mg tablet 9-14 TABLET BY ity o f 00:00: MOUTH EVERY DAY [facility] OZZY 2019-0 Yes [id number] TAKE 1 Univers mg tablet 9-14 TABLET BY ity o f 00:00: MOUTH 00 EVERY DAY [facility] OZZY Huerta 2019-0 2020- No [id number] TAKE 1 Univers mg tablet 9-14 - TABLET BY ity of 00:00: 00:00 MOUTH [place] 00 :00 EVERY DAY Medical Branch JANUVIA 100 2020-0 Yes [id number] TAKE 1 Univers mg tablet 8-28 TABLET BY ity o f 00:00: MOUTH [place] 00 EVERY DAY Medical Branch SITagliptin 2020-0 Yes [id number] 100mg Take 1 Univers 100 mg 2-07 tablet by ity of tablet 00:00: mouth [place] 00 daily. Medical Branch SITagliptin 2020-0 Yes [id number] 100mg Take 1 Univers 100 mg 2-07 tablet by ity of tablet 00:00: mouth [place] 00 daily. Medical Branch SITagliptin 2020-0 Yes [id number] 100mg Take 1 Univers 100 mg 2-07 tablet by ity of tablet 00:00: mouth [place] 00 daily. Medical Branch SITagliptin 2020-0 2020- No [id number] 100mg Take 1 Univers 100 mg 2-07 08-28 tablet by ity of tablet 00:00: 00:00 mouth [place] 00 :00 daily. Medical Branch TRADJENTA 5 2020-0 Yes [id number] 5mg Take 1 Univers mg tablet 1-22 tablet by ity o f 00:00: mouth [place] 00 daily. Medical Branch TRADJENTA 5 2020-0 Yes [id number] 5mg Take 1 Univers mg tablet 1-22 tablet by ity o f 00:00: mouth [place] 00 daily. Medical Branch TRADJENTA 5 2020-0 Yes [id number] 5mg Take 1 Univers mg tablet 1-22 tablet by ity o f 00:00: mouth [place] 00 daily. Medical Branch TRADJENTA 5 2020-0 Yes [id number] 5mg Take 1 Univers mg tablet 1-22 tablet by ity o f 00:00: mouth [place] 00 daily. Medical Branch TRADJENTA 5 2020-0 Yes [id number] 5mg Take 1 Univers mg tablet 1-22 tablet by ity o f 00:00: mouth [place] 00 daily. Medical Branch TRADJENTA 5 2020-0 Yes [id number] 5mg Take 1 Univers mg tablet 1-22 tablet by ity o f 00:00: mouth [place] 00 daily. Medical Branch TRADJENTA 5 2020-0 Yes [id number] 5mg Take 1 Univers mg tablet 1-22 tablet by ity o f 00:00: mouth [place] 00 daily. Medical Branch TRADJENTA 5 2020-0 2020- No [id number] 5mg Take 1 Univers mg tablet 1-22 02-07 tablet by ity of 00:00: 00:00 mouth [place] 00 :00 daily. Medical Branch atorvastati 2019- No 10mg Take 10 mg Univers n 10 mg 06-11 by mouth ity of tablet 20:00: 00:00 daily. [place] 45 :00 Medical Branch lisinopril 2019- No 10mg Take 10 mg Univers 10 mg 06-11 by mouth ity of tablet 20:00: 00:00 daily. [place] 45 :00 Medical Branch busPIRone 2019- No 10mg Take 10 mg U nivers 10 mg 06-11 by mouth 2 ity of tablet 20:00: 00:00 (two) [place] 45 :00 times Medical daily. Branch metoprolol 2019- No 50mg Take 50 mg Univers succinate 06-11 by mouth ity o f XL 50 mg 24 20:00: 00:00 daily. [place] hr tablet 45 :00 Medical Branch atorvastati 2019- No 10mg Take 10 mg Univers n 10 mg 06-11 by mouth ity of tablet 20:00: 00:00 daily. [place] 45 :00 Medical Branch lisinopril 2019- No 10mg Take 10 mg Univers 10 mg 06-11 by mouth ity of tablet 20:00: 00:00 daily. [place] 45 :00 Medical Branch busPIRone 2019- No 10mg Take 10 mg U nivers 10 mg 06-11 by mouth 2 ity of tablet 20:00: 00:00 (two) [place] 45 :00 times Medical daily. Branch metoprolol 2019- No 50mg Take 50 mg Univers succinate 06-11 by mouth ity o f XL 50 mg 24 20:00: 00:00 daily. [place] hr tablet 45 :00 Medical Branch BABY Yes 1{tbl} Take 1 Univers ASPIRIN 1-21 tablet by ity of ORAL 19:57: mouth [place] 34 daily. Medical Branch BABY Yes 1{tbl} Take 1 Univers ASPIRIN 1-21 tablet by ity of ORAL 19:57: mouth [place] 34 daily. Medical Branch BABY Yes 1{tbl} Take 1 Univers ASPIRIN 1-21 tablet by ity of ORAL 19:57: mouth [place] 34 daily. Medical Branch BABY 2020-0 Yes 1{tbl} Take 1 Univers ASPIRIN 1-21 tablet by ity of ORAL 19:57: mouth [place] 34 daily. Medical Branch BABY 2020-0 Yes 1{tbl} Take 1 Univers ASPIRIN 1-21 tablet by ity of ORAL 19:57: mouth [place] 34 daily. Medical Branch BABY 2020-0 Yes 1{tbl} Take 1 Univers ASPIRIN 1-21 tablet by ity of ORAL 19:57: mouth [place] 34 daily. Medical Branch BABY 2020-0 Yes 1{tbl} Take 1 Univers ASPIRIN 1-21 tablet by ity of ORAL 19:57: mouth [place] 34 daily. Medical Branch BABY 2020-0 Yes 1{tbl} Take 1 Univers ASPIRIN 1-21 tablet by ity of ORAL 19:57: mouth [place] 34 daily. Medical Branch BABY 2020-0 Yes 1{tbl} Take 1 Univers ASPIRIN 1-21 tablet by ity of ORAL 19:57: mouth [place] 34 daily. Medical Branch BABY 2020-0 Yes 1{tbl} Take 1 Univers ASPIRIN 1-21 tablet by ity of ORAL 19:57: mouth [place] 34 daily. Medical Branch BABY 2020-0 Yes 1{tbl} Take 1 Univers ASPIRIN 1-21 tablet by ity of ORAL 19:57: mouth [place] 34 daily. Medical Branch BABY 2020-0 Yes 1{tbl} Take 1 Univers ASPIRIN 1-21 tablet by ity of ORAL 19:57: mouth [place] 34 daily. Medical Branch BABY 2020-0 Yes 1{tbl} Take 1 Univers ASPIRIN 1-21 tablet by ity of ORAL 19:57: mouth [place] 34 daily. Medical Branch BABY 2020-0 Yes 1{tbl} Take 1 Univers ASPIRIN 1-21 tablet by ity of ORAL 19:57: mouth [place] 34 daily. Medical Branch BABY 2020-0 Yes 1{tbl} Take 1 Univers ASPIRIN 1-21 tablet by ity of ORAL 19:57: mouth [place] 34 daily. Medical Branch BABY 2020-0 Yes 1{tbl} Take 1 Univers ASPIRIN 1-21 tablet by ity of ORAL 19:57: mouth [place] 34 daily. Medical Branch BABY 2020-0 Yes 1{tbl} Take 1 Univers ASPIRIN 1-21 tablet by ity of ORAL 19:57: mouth [place] 34 daily. Medical Branch BABY 2020-0 Yes 1{tbl} Take 1 Univers ASPIRIN 1-21 tablet by ity of ORAL 19:57: mouth [place] 34 daily. Medical Branch FUROSEMIDE 2019-0 2020- No 40mg Take 40 mg Univers (LASIX 06-11 by mouth. ity of ORAL) 19:55: 00:00 [place] 02 :00 Medical Branch FUROSEMIDE 2019-0 2020- No 40mg Take 40 mg Univers (LASIX 06-11 by mouth. ity of ORAL) 19:55: 00:00 [place] 02 :00 Medical Branch DOCOSAHEXAN 2019-0 2020- No Take by U nivers OIC 06-11 mouth. ity of ACID/EPA 19:54: 00:00 [place] (FISH OIL 52 :00 Medical ORAL) Branch DOCOSAHEXAN 0 2020- No Take by U nivers OIC 06-11 mouth. ity of ACID/EPA 19:54: 00:00 [place] (FISH OIL 52 :00 Medical ORAL) Branch digoxin 250 2020- No 250ug Take 250 Univers mcg tablet 06-11-21 mcg by ity of 19:54: 00:00 mouth [place] 43 :00 daily. Medical Branch digoxin 250 0 2020- No 250ug Take 250 Univers mcg tablet 06-11-21 mcg by ity of 19:54: 00:00 mouth [place] 43 :00 daily. Medical Branch atorvastati 2019-0 Yes [id number] 10mg Take 1 Univers n 10 mg 1-21 tablet by ity of tablet 00:00: mouth [place] 00 daily. Medical Branch busPIRone 2019-0 Yes [id number] 10mg Take 1 Un nataliia 10 mg 1-21 tablet by ity of tablet 00:00: mouth 2 [place] 00 (two) Medical times Branch daily. lisinopril 2019-0 Yes [id number] 10mg Take 1 U nivers 10 mg 1-21 tablet by ity of tablet 00:00: mouth [place] 00 daily. Medical Branch metFORMIN 2019-0 Yes [id number] 1000mg Take 1 Univers 1,000 mg 1-21 tablet by ity of tablet 00:00: mouth 2 [place] 00 (two) Medical times Branch daily with meals. metoprolol 2019-0 Yes [id number] 50mg Take 1 Univers succinate 1-21 tablet by ity o f XL 50 mg 24 00:00: mouth [place] hr tablet 00 daily. Medical Branch dabigatran 2020-0 Yes [id number] 150mg Take 1 Univ ers etexilate 1-21 capsule by ity of (PRADAXA) 00:00: mouth 2 [place] 150 mg 00 (two) Medical capsule times Branch daily. Indication s: atrial fibrillati on atorvastati 2020-0 Yes [id number] 10mg Take 1 Univers n 10 mg 1-21 tablet by ity of tablet 00:00: mouth [place] 00 daily. Medical Branch busPIRone 2020-0 Yes [id number] 10mg Take 1 Un nataliia 10 mg 1-21 tablet by ity of tablet 00:00: mouth 2 [place] 00 (two) Medical times Branch daily. lisinopril 2020-0 Yes [id number] 10mg Take 1 U nivers 10 mg 1-21 tablet by ity of tablet 00:00: mouth [place] 00 daily. Medical Branch metFORMIN 2019-0 Yes [id number] 1000mg Take 1 Univers 1,000 mg 1-21 tablet by ity of tablet 00:00: mouth 2 [place] 00 (two) Medical times Branch daily with meals. metoprolol 2020-0 Yes [id number] 50mg Take 1 Univers succinate 1-21 tablet by ity o f XL 50 mg 24 00:00: mouth [place] hr tablet 00 daily. Medical Branch dabigatran 2020-0 Yes [id number] 150mg Take 1 Univ ers etexilate 1-21 capsule by ity of (PRADAXA) 00:00: mouth 2 [place] 150 mg 00 (two) Medical capsule times Branch daily. Indication s: atrial fibrillati on atorvastati 2020-0 Yes [id number] 10mg Take 1 Univers n 10 mg 1-21 tablet by ity of tablet 00:00: mouth [place] 00 daily. Medical Branch busPIRone 2019-0 Yes [id number] 10mg Take 1 Un nataliia 10 mg 1-21 tablet by ity of tablet 00:00: mouth 2 [place] 00 (two) Medical times Branch daily. lisinopril 2020-0 Yes [id number] 10mg Take 1 U nivers 10 mg 1-21 tablet by ity of tablet 00:00: mouth [place] 00 daily. Medical Branch metFORMIN 2020-0 Yes [id number] 1000mg Take 1 Univers 1,000 mg 1-21 tablet by ity of tablet 00:00: mouth 2 [place] 00 (two) Medical times Branch daily with meals. metoprolol 2020-0 Yes [id number] 50mg Take 1 Univers succinate 1-21 tablet by ity o f XL 50 mg 24 00:00: mouth [place] hr tablet 00 daily. Medical Branch dabigatran 2020-0 Yes [id number] 150mg Take 1 Univ ers etexilate 1-21 capsule by ity of (PRADAXA) 00:00: mouth 2 [place] 150 mg 00 (two) Medical capsule times Branch daily. Indication s: atrial fibrillati on atorvastati 2020-0 Yes [id number] 10mg Take 1 Univers n 10 mg 1-21 tablet by ity of tablet 00:00: mouth [place] 00 daily. Medical Branch busPIRone 2019-0 Yes [id number] 10mg Take 1 Un nataliia 10 mg 1-21 tablet by ity of tablet 00:00: mouth 2 [place] 00 (two) Medical times Branch daily. lisinopril 2020-0 Yes [id number] 10mg Take 1 U nivers 10 mg 1-21 tablet by ity of tablet 00:00: mouth [place] 00 daily. Medical Branch metFORMIN 2020-0 Yes [id number] 1000mg Take 1 Univers 1,000 mg 1-21 tablet by ity of tablet 00:00: mouth 2 [place] 00 (two) Medical times Branch daily with meals. metoprolol 2020-0 Yes [id number] 50mg Take 1 Univers succinate 1-21 tablet by ity o f XL 50 mg 24 00:00: mouth [place] hr tablet 00 daily. Medical Branch dabigatran 2019-0 Yes [id number] 150mg Take 1 Univ ers etexilate 1-21 capsule by ity of (PRADAXA) 00:00: mouth 2 [place] 150 mg 00 (two) Medical capsule times Branch daily. Indication s: atrial fibrillati on atorvastati 2020-0 Yes [id number] 10mg Take 1 Univers n 10 mg 1-21 tablet by ity of tablet 00:00: mouth [place] 00 daily. Medical Branch busPIRone 2020-0 Yes [id number] 10mg Take 1 Un nataliia 10 mg 1-21 tablet by ity of tablet 00:00: mouth 2 [place] 00 (two) Medical times Branch daily. lisinopril 2020-0 Yes [id number] 10mg Take 1 U nivers 10 mg 1-21 tablet by ity of tablet 00:00: mouth [place] 00 daily. Medical Branch metFORMIN 2020-0 Yes [id number] 1000mg Take 1 Univers 1,000 mg 1-21 tablet by ity of tablet 00:00: mouth 2 [place] 00 (two) Medical times Branch daily with meals. metoprolol 2020-0 Yes [id number] 50mg Take 1 Univers succinate 1-21 tablet by ity o f XL 50 mg 24 00:00: mouth [place] hr tablet 00 daily. Medical Branch dabigatran 2019-0 Yes [id number] 150mg Take 1 Univ ers etexilate 1-21 capsule by ity of (PRADAXA) 00:00: mouth 2 [place] 150 mg 00 (two) Medical capsule times Branch daily. Indication s: atrial fibrillati on atorvastati 2020-0 Yes [id number] 10mg Take 1 Univers n 10 mg 1-21 tablet by ity of tablet 00:00: mouth [place] 00 daily. Medical Branch busPIRone 2019-0 Yes [id number] 10mg Take 1 Un nataliia 10 mg 1-21 tablet by ity of tablet 00:00: mouth 2 [place] 00 (two) Medical times Branch daily. lisinopril 2020-0 Yes [id number] 10mg Take 1 U nivers 10 mg 1-21 tablet by ity of tablet 00:00: mouth [place] 00 daily. Medical Branch metFORMIN 2019-0 Yes [id number] 1000mg Take 1 Univers 1,000 mg 1-21 tablet by ity of tablet 00:00: mouth 2 [place] 00 (two) Medical times Branch daily with meals. metoprolol 2020-0 Yes [id number] 50mg Take 1 Univers succinate 1-21 tablet by ity o f XL 50 mg 24 00:00: mouth [place] hr tablet 00 daily. Medical Branch dabigatran 2020-0 Yes [id number] 150mg Take 1 Univ ers etexilate 1-21 capsule by ity of (PRADAXA) 00:00: mouth 2 [place] 150 mg 00 (two) Medical capsule times Branch daily. Indication s: atrial fibrillati on atorvastati 2020-0 Yes [id number] 10mg Take 1 Univers n 10 mg 1-21 tablet by ity of tablet 00:00: mouth [place] 00 daily. Medical Branch busPIRone 2019-0 Yes [id number] 10mg Take 1 Un nataliia 10 mg 1-21 tablet by ity of tablet 00:00: mouth 2 [place] 00 (two) Medical times Branch daily. lisinopril 2020-0 Yes [id number] 10mg Take 1 U nivers 10 mg 1-21 tablet by ity of tablet 00:00: mouth [place] 00 daily. Medical Branch metFORMIN 2020-0 Yes [id number] 1000mg Take 1 Univers 1,000 mg 1-21 tablet by ity of tablet 00:00: mouth 2 [place] 00 (two) Medical times Branch daily with meals. metoprolol 2020-0 Yes [id number] 50mg Take 1 Univers succinate 1-21 tablet by ity o f XL 50 mg 24 00:00: mouth [place] hr tablet 00 daily. Medical Branch dabigatran 2020-0 Yes [id number] 150mg Take 1 Univ ers etexilate 1-21 capsule by ity of (PRADAXA) 00:00: mouth 2 [place] 150 mg 00 (two) Medical capsule times Branch daily. Indication s: atrial fibrillati on atorvastati 2020-0 Yes [id number] 10mg Take 1 Univers n 10 mg 1-21 tablet by ity of tablet 00:00: mouth [place] 00 daily. Medical Branch busPIRone 2020-0 Yes [id number] 10mg Take 1 Un nataliia 10 mg 1-21 tablet by ity of tablet 00:00: mouth 2 [place] 00 (two) Medical times Branch daily. lisinopril 2020-0 Yes [id number] 10mg Take 1 U nivers 10 mg 1-21 tablet by ity of tablet 00:00: mouth [place] 00 daily. Medical Branch metFORMIN 2020-0 Yes [id number] 1000mg Take 1 Univers 1,000 mg 1-21 tablet by ity of tablet 00:00: mouth 2 [place] 00 (two) Medical times Branch daily with meals. metoprolol 2020-0 Yes [id number] 50mg Take 1 Univers succinate 1-21 tablet by ity o f XL 50 mg 24 00:00: mouth [place] hr tablet 00 daily. Medical Branch dabigatran 2020-0 Yes [id number] 150mg Take 1 Univ ers etexilate 1-21 capsule by ity of (PRADAXA) 00:00: mouth 2 [place] 150 mg 00 (two) Medical capsule times Branch daily. Indication s: atrial fibrillati on atorvastati 2020-0 Yes [id number] 10mg Take 1 Univers n 10 mg 1-21 tablet by ity of tablet 00:00: mouth [place] 00 daily. Medical Branch busPIRone 2020-0 Yes [id number] 10mg Take 1 Un nataliia 10 mg 1-21 tablet by ity of tablet 00:00: mouth 2 [place] 00 (two) Medical times Branch daily. lisinopril 2020-0 Yes [id number] 10mg Take 1 U nivers 10 mg 1-21 tablet by ity of tablet 00:00: mouth [place] 00 daily. Medical Branch metFORMIN 2020-0 Yes [id number] 1000mg Take 1 Univers 1,000 mg 1-21 tablet by ity of tablet 00:00: mouth 2 [place] 00 (two) Medical times Branch daily with meals. metoprolol 2020-0 Yes [id number] 50mg Take 1 Univers succinate 1-21 tablet by ity o f XL 50 mg 24 00:00: mouth [place] hr tablet 00 daily. Medical Branch dabigatran 2019-0 Yes [id number] 150mg Take 1 Univ ers etexilate 1-21 capsule by ity of (PRADAXA) 00:00: mouth 2 [place] 150 mg 00 (two) Medical capsule times Branch daily. Indication s: atrial fibrillati on atorvastati 2020-0 Yes [id number] 10mg Take 1 Univers n 10 mg 1-21 tablet by ity of tablet 00:00: mouth [place] 00 daily. Medical Branch busPIRone 2019-0 Yes [id number] 10mg Take 1 Un nataliia 10 mg 1-21 tablet by ity of tablet 00:00: mouth 2 [place] 00 (two) Medical times Branch daily. lisinopril 2020-0 Yes [id number] 10mg Take 1 U nivers 10 mg 1-21 tablet by ity of tablet 00:00: mouth [place] 00 daily. Medical Branch metFORMIN 2019-0 Yes [id number] 1000mg Take 1 Univers 1,000 mg 1-21 tablet by ity of tablet 00:00: mouth 2 [place] 00 (two) Medical times Branch daily with meals. metoprolol 2020-0 Yes [id number] 50mg Take 1 Univers succinate 1-21 tablet by ity o f XL 50 mg 24 00:00: mouth [place] hr tablet 00 daily. Medical Branch dabigatran 2020-0 Yes [id number] 150mg Take 1 Univ ers etexilate 1-21 capsule by ity of (PRADAXA) 00:00: mouth 2 [place] 150 mg 00 (two) Medical capsule times Branch daily. Indication s: atrial fibrillati on atorvastati 2020-0 Yes [id number] 10mg Take 1 Univers n 10 mg 1-21 tablet by ity of tablet 00:00: mouth [place] 00 daily. Medical Branch busPIRone 2019-0 Yes [id number] 10mg Take 1 Un nataliia 10 mg 1-21 tablet by ity of tablet 00:00: mouth 2 [place] 00 (two) Medical times Branch daily. lisinopril 2019-0 Yes [id number] 10mg Take 1 U nivers 10 mg 1-21 tablet by ity of tablet 00:00: mouth [place] 00 daily. Medical Branch metFORMIN 2019-0 Yes [id number] 1000mg Take 1 Univers 1,000 mg 1-21 tablet by ity of tablet 00:00: mouth 2 [place] 00 (two) Medical times Branch daily with meals. metoprolol 2019-0 Yes [id number] 50mg Take 1 Univers succinate 1-21 tablet by ity o f XL 50 mg 24 00:00: mouth [place] hr tablet 00 daily. Medical Branch dabigatran 2019-0 Yes [id number] 150mg Take 1 Univ ers etexilate 1-21 capsule by ity of (PRADAXA) 00:00: mouth 2 [place] 150 mg 00 (two) Medical capsule times Branch daily. Indication s: atrial fibrillati on atorvastati 0 Yes [id number] 10mg Take 1 Univers n 10 mg 1-21 tablet by ity of tablet 00:00: mouth [place] 00 daily. Medical Branch busPIRone 2019-0 Yes [id number] 10mg Take 1 Un nataliia 10 mg 1-21 tablet by ity of tablet 00:00: mouth 2 [place] 00 (two) Medical times Branch daily. lisinopril 2019-0 Yes [id number] 10mg Take 1 U nivers 10 mg 1-21 tablet by ity of tablet 00:00: mouth [place] 00 daily. Medical Branch metFORMIN 2019-0 Yes [id number] 1000mg Take 1 Univers 1,000 mg 1-21 tablet by ity of tablet 00:00: mouth 2 [place] 00 (two) Medical times Branch daily with meals. metoprolol 2019-0 Yes [id number] 50mg Take 1 Univers succinate 1-21 tablet by ity o f XL 50 mg 24 00:00: mouth [place] hr tablet 00 daily. Medical Branch dabigatran 2019-0 Yes [id number] 150mg Take 1 Univ ers etexilate 1-21 capsule by ity of (PRADAXA) 00:00: mouth 2 [place] 150 mg 00 (two) Medical capsule times Branch daily. Indication s: atrial fibrillati on atorvastati 2020-0 Yes [id number] 10mg Take 1 Univers n 10 mg 1-21 tablet by ity of tablet 00:00: mouth [place] 00 daily. Medical Branch busPIRone 2019-0 Yes [id number] 10mg Take 1 Un nataliia 10 mg 1-21 tablet by ity of tablet 00:00: mouth 2 [place] 00 (two) Medical times Branch daily. lisinopril 2019-0 Yes [id number] 10mg Take 1 U nivers 10 mg 1-21 tablet by ity of tablet 00:00: mouth [place] 00 daily. Medical Branch metFORMIN 2019-0 Yes [id number] 1000mg Take 1 Univers 1,000 mg 1-21 tablet by ity of tablet 00:00: mouth 2 [place] 00 (two) Medical times Branch daily with meals. metoprolol 2019-0 Yes [id number] 50mg Take 1 Univers succinate 1-21 tablet by ity o f XL 50 mg 24 00:00: mouth [place] hr tablet 00 daily. Medical Branch dabigatran 2019-0 Yes [id number] 150mg Take 1 Univ ers etexilate 1-21 capsule by ity of (PRADAXA) 00:00: mouth 2 [place] 150 mg 00 (two) Medical capsule times Branch daily. Indication s: atrial fibrillati on atorvastati 2019-0 Yes [id number] 10mg Take 1 Univers n 10 mg 1-21 tablet by ity of tablet 00:00: mouth [place] 00 daily. Medical Branch busPIRone 2019-0 Yes [id number] 10mg Take 1 Un nataliia 10 mg 1-21 tablet by ity of tablet 00:00: mouth 2 [place] 00 (two) Medical times Branch daily. lisinopril 2019-0 Yes [id number] 10mg Take 1 U nivers 10 mg 1-21 tablet by ity of tablet 00:00: mouth [place] 00 daily. Medical Branch metFORMIN 2019-0 Yes [id number] 1000mg Take 1 Univers 1,000 mg 1-21 tablet by ity of tablet 00:00: mouth 2 [place] 00 (two) Medical times Branch daily with meals. metoprolol 2019-0 Yes [id number] 50mg Take 1 Univers succinate 1-21 tablet by ity o f XL 50 mg 24 00:00: mouth [place] hr tablet 00 daily. Medical Branch dabigatran 2020-0 Yes [id number] 150mg Take 1 Univ ers etexilate 1-21 capsule by ity of (PRADAXA) 00:00: mouth 2 [place] 150 mg 00 (two) Medical capsule times Branch daily. Indication s: atrial fibrillati on atorvastati 2020-0 Yes [id number] 10mg Take 1 Univers n 10 mg 1-21 tablet by ity of tablet 00:00: mouth [place] 00 daily. Medical Branch busPIRone 2020-0 Yes [id number] 10mg Take 1 Un nataliia 10 mg 1-21 tablet by ity of tablet 00:00: mouth 2 [place] 00 (two) Medical times Branch daily. lisinopril 2020-0 Yes [id number] 10mg Take 1 U nivers 10 mg 1-21 tablet by ity of tablet 00:00: mouth [place] 00 daily. Medical Branch metFORMIN 2019-0 Yes [id number] 1000mg Take 1 Univers 1,000 mg 1-21 tablet by ity of tablet 00:00: mouth 2 [place] 00 (two) Medical times Branch daily with meals. metoprolol 2020-0 Yes [id number] 50mg Take 1 Univers succinate 1-21 tablet by ity o f XL 50 mg 24 00:00: mouth [place] hr tablet 00 daily. Medical Branch dabigatran 2019-0 Yes [id number] 150mg Take 1 Univ ers etexilate 1-21 capsule by ity of (PRADAXA) 00:00: mouth 2 [place] 150 mg 00 (two) Medical capsule times Branch daily. Indication s: atrial fibrillati on atorvastati 2019-0 Yes [id number] 10mg Take 1 Univers n 10 mg 1-21 tablet by ity of tablet 00:00: mouth [place] 00 daily. Medical Branch busPIRone 2019-0 Yes [id number] 10mg Take 1 Un nataliia 10 mg 1-21 tablet by ity of tablet 00:00: mouth 2 [place] 00 (two) Medical times Branch daily. lisinopril 2020-0 Yes [id number] 10mg Take 1 U nivers 10 mg 1-21 tablet by ity of tablet 00:00: mouth [place] 00 daily. Medical Branch metFORMIN 2020-0 Yes [id number] 1000mg Take 1 Univers 1,000 mg 1-21 tablet by ity of tablet 00:00: mouth 2 [place] 00 (two) Medical times Branch daily with meals. metoprolol 2020-0 Yes [id number] 50mg Take 1 Univers succinate 1-21 tablet by ity o f XL 50 mg 24 00:00: mouth [place] hr tablet 00 daily. Medical Branch dabigatran 2020-0 Yes [id number] 150mg Take 1 Univ ers etexilate 1-21 capsule by ity of (PRADAXA) 00:00: mouth 2 [place] 150 mg 00 (two) Medical capsule times Branch daily. Indication s: atrial fibrillati on atorvastati 2020-0 Yes [id number] 10mg Take 1 Univers n 10 mg 1-21 tablet by ity of tablet 00:00: mouth [place] 00 daily. Medical Branch busPIRone 2020-0 Yes [id number] 10mg Take 1 Un nataliia 10 mg 1-21 tablet by ity of tablet 00:00: mouth 2 [place] 00 (two) Medical times Branch daily. lisinopril 2020-0 Yes [id number] 10mg Take 1 U nivers 10 mg 1-21 tablet by ity of tablet 00:00: mouth [place] 00 daily. Medical Branch metFORMIN 2020-0 Yes [id number] 1000mg Take 1 Univers 1,000 mg 1-21 tablet by ity of tablet 00:00: mouth 2 [place] 00 (two) Medical times Branch daily with meals. metoprolol 2020-0 Yes [id number] 50mg Take 1 Univers succinate 1-21 tablet by ity o f XL 50 mg 24 00:00: mouth [place] hr tablet 00 daily. Medical Branch dabigatran 2019-0 Yes [id number] 150mg Take 1 Univ ers etexilate 1-21 capsule by ity of (PRADAXA) 00:00: mouth 2 [place] 150 mg 00 (two) Medical capsule times Branch daily. Indication s: atrial fibrillati on atorvastati 2020-0 Yes [id number] 10mg Take 1 Univers n 10 mg 1-21 tablet by ity of tablet 00:00: mouth [place] 00 daily. Medical Branch busPIRone 2020-0 Yes [id number] 10mg Take 1 Un nataliia 10 mg 1-21 tablet by ity of tablet 00:00: mouth 2 [place] 00 (two) Medical times Branch daily. lisinopril 2020-0 Yes [id number] 10mg Take 1 U nivers 10 mg 1-21 tablet by ity of tablet 00:00: mouth [place] 00 daily. Medical Branch metFORMIN Yes [id number] 1000mg Take 1 Univers 1,000 mg 1-21 tablet by ity of tablet 00:00: mouth 2 [place] 00 (two) Medical times Branch daily with meals. metoprolol Yes [id number] 50mg Take 1 Univers succinate 1-21 tablet by ity o f XL 50 mg 24 00:00: mouth [place] hr tablet 00 daily. Medical Branch dabigatran Yes [id number] 150mg Take 1 Univ ers etexilate 1-21 capsule by ity of (PRADAXA) 00:00: mouth 2 [place] 150 mg 00 (two) Medical capsule times Branch daily. Indication s: atrial fibrillati on PRADAXA 150 2018-05- No 150mg Take 150 Univers mg capsule 05-23 01-21 mg by ity of 00:00: 00:00 mouth 2 [place] 00 :00 (two) Medical times Branch daily. PRADAXA 150 2018-05- No 150mg Take 150 Univers mg capsule 05-23-21 mg by ity of 00:00: 00:00 mouth 2 [place] 00 :00 (two) Medical times Branch daily. Klonopin Klonopin 2017-05 Yes Loc [address] [facility] BusPIRone BusPIRone 2017-05 Yes Loc [address] [facility] HCl HCl 1-14 [facility] 00 [facility] ent Clinics amoxicillin Yes 500mg Take 1 Uni vers 500 mg 2-05 capsule by ity of capsule 00:00: mouth 3 [place] 00 (three) Medical times Branch daily. acetaminoph Yes 2{tbl} Take 2 Un nataliia en-codeine 2-05 tablets by ity of (TYLENOL-CO 00:00: mouth [place] DEINE #3) 00 every 6 Medical 300-30 mg (six) Branch tablet hours as needed for Pain (scale 7-10). amoxicillin 2019- No 500mg Take 1 Un nataliia 500 mg 2-05 01-21 capsule by ity of capsule 00:00: 00:00 mouth 3 [place] 00 :00 (three) Medical times Branch daily. acetaminoph 2018-0 2020- No 2{tbl} Take 2 U nivers en-codeine 2-09 19-21 tablets by it y of (TYLENOL-CO 00:00: 00:[place] DE[place] #3[place] 00 :00 every 6 Medical 300-30 mg (six) Branch tablet hours as needed for Pain (scale 7-10). amoxicillin 2019- No 500mg Take 1 Un nataliia 500 mg 06-26 capsule by ity of capsule 00:00: 00:00 mouth 3 [place] 00 :00 (three) Medical times Branch daily. acetaminoph 2019- No 2{tbl} Take 2 U nivers en-codeine 2-09 19-21 tablets by it y of (TYLENOL-CO 00:00: 00:[place] DE[place] #3[place] 00 :00 every 6 Medical 300-30 mg (six) Branch tablet hours as needed for Pain (scale 7-10). FUROSEMIDE 2016-05 Yes 40mg Take 40 mg U nivers (LASIX 1-10 by mouth. ity of ORAL) 20:23: [place] [address] Medical Branch atorvastati 2016-05 Yes 10mg Take 10 mg Univers n 10 mg 1-10 by mouth ity of tablet 20:23: at [place] bedtime. Medical Branch lisinopril 2016-05 Yes 10mg Take 10 mg U nivers 10 mg 1-10 by mouth ity of tablet 20:23: daily. [place] [address] Medical Branch BABY 2016-05 Yes Take by Univers ASPIRIN 1-10 mouth. ity of ORAL 20:23: [place] [address] Medical Branch DOCOSAHEXAN 2016-05 Yes Take by Un nataliia OIC 1-10 mouth. ity of ACID/EPA 20:23: [place] (FISH OIL 03 Medical ORAL) Branch digoxin 250 2016-05 Yes 250ug Take 250 U nivers mcg tablet 1-10 mcg by ity of 20:23: mouth daily. Medical Branch rivaroxaban 2016-05 Yes 20mg Take 1 Univ ers (XARELTO) 0-29 tablet by ity o f 20 mg 00:00: mouth [place] tablet 00 daily. Medical Branch rivaroxaban 2016-05 2020- No 20mg Take 1 Uni vers (XARELTO) 0-29 01-21 tablet by ity of 20 mg 00:00: 00:00 mouth [place] tablet 00 :00 daily. Medical Branch rivaroxaban 2016-05- No 20mg Take 1 Uni vers (XARELTO) 0-29 01-21 tablet by ity of 20 mg 00:00: 00:00 mouth [place] tablet 00 :00 daily. Medical Branch metFORMIN 2016-05 Yes [id number] 1000mg Take 1 Univers 1,000 mg 0-26 tablet by ity of tablet 00:00: mouth 2 [place] 00 (two) Medical times Branch daily with meals. metFORMIN 2016-05- No [id number] 1000mg Take 1 Univers 1,000 mg 0-26 01-21 tablet by ity o f tablet 00:00: 00:00 mouth 2 [place] 00 :00 (two) Medical times Branch daily with meals. metFORMIN 2016-05- No [id number] 1000mg Take 1 Univers 1,000 mg 0-26 01-21 tablet by ity o f tablet 00:00: 00:00 mouth 2 [place] 00 :00 (two) Medical times Branch daily with meals. rivaroxaban 2016-05 Yes 15mg Take 1 Univ ers 15 mg 0-17 tablet by ity of tablet 00:00: mouth 2 [place] 00 (two) Medical times Branch daily. rivaroxaban 2016-05- No 15mg Take 1 Uni vers 15 mg 0-17 01-21 tablet by ity of tablet 00:00: 00:00 mouth 2 [place] 00 :00 (two) Medical times Branch daily. rivaroxaban 2016-05- No 15mg Take 1 Uni vers 15 mg 0-17 01-21 tablet by ity of tablet 00:00: 00:00 mouth 2 [place] 00 :00 (two) Medical times Branch daily. Atorvastati Atorvastati Yes Loc [address] [facility] Calcium n Calcium [facility] Dilantin Dilantin Yes Loc as [facility] Xarelto Xarelto Yes Loc [address] [facility] Lisinopril Lisinopril Yes Loc [address] [facility] Metformin Metformin Yes Loc [address] [facility] HCl HCl [facility] Pradaxa Pradaxa Yes Loc [address] [facility] Furosemide Furosemide Yes Loc [address] [facility] [place] [facility] Sotalol HCl Sotalol HCl Yes Loc [address] [facility] Digoxin Digoxin Yes Loc [address] [facility] Immunizations Ordered Filled Immunization Date Status Comments [facility] e Immunization Name Name Influenza Virus 2019-06-11 Completed Universit y of Vaccine Quad .5 mL 00:00:00 [facility] 6+ MO Branch TDAP (ADACEL) 2019-06-11 Completed University of VACCINE 00:00:00 [facility] Influenza Virus 2019-06-11 Completed Universit y of Vaccine Quad .5 mL 00:00:00 [facility] 6+ MO Branch TDAP (ADACEL) 2019-06-11 Completed University of VACCINE 00:00:00 [facility] Influenza Virus 2019-06-11 Completed Universit y of Vaccine Quad .5 mL 00:00:00 [facility] 6+ MO Branch TDAP (ADACEL) 2019-06-11 Completed University of VACCINE 00:00:00 [facility] Influenza Virus 2019-06-11 Completed Universit y of Vaccine Quad .5 mL 00:00:00 [facility] 6+ MO Branch TDAP (ADACEL) 2019-06-11 Completed University of VACCINE 00:00:00 [facility] Influenza Virus 2019-06-11 Completed Universit y of Vaccine Quad .5 mL 00:00:00 [facility] 6+ MO Branch TDAP (ADACEL) 2019-06-11 Completed University of VACCINE 00:00:00 [facility] Influenza Virus 2019-06-11 Completed Universit y of Vaccine Quad .5 mL 00:00:00 [facility] 6+ MO Branch TDAP (ADACEL) 2019-06-11 Completed University of VACCINE 00:00:00 [facility] Influenza Virus 2019-06-11 Completed Universit y of Vaccine Quad .5 mL 00:00:00 [facility] 6+ MO Branch TDAP (ADACEL) 2019-06-11 Completed University of VACCINE 00:00:00 [facility] Influenza Virus 2019-06-11 Completed Universit y of Vaccine Quad .5 mL 00:00:00 [place] [facility] 6+ MO Branch TDAP (ADACEL) 2019-06-11 Completed University of VACCINE 00:00:00 [facility] Influenza Virus 2019-06-11 Completed Universit y of Vaccine Quad .5 mL 00:00:00 [place] [facility] IM 6+ MO Branch TDAP (ADACEL) 2019-06-11 Completed University of VACCINE 00:00:00 [facility] Influenza Virus 2019-06-11 Completed Universit y of Vaccine Quad .5 mL 00:00:00 [place] [facility] IM 6+ MO Branch TDAP (ADACEL) 2019-06-11 Completed University of VACCINE 00:00:00 [facility] Influenza Virus 2019-06-11 Completed Universit y of Vaccine Quad .5 mL 00:00:00 [place] [facility] IM 6+ MO Branch TDAP (ADACEL) 2019-06-11 Completed University of VACCINE 00:00:00 [facility] Influenza Virus 2019-06-11 Completed Universit y of Vaccine Quad .5 mL 00:00:00 [place] [facility] IM 6+ MO Branch TDAP (ADACEL) 2019-06-11 Completed University of VACCINE 00:00:00 [facility] Influenza Virus 2019-06-11 Completed Universit y of Vaccine Quad .5 mL 00:00:00 [facility] IM 6+ MO Branch TDAP (ADACEL) 2019-06-11 Completed University of VACCINE 00:00:00 [facility] Influenza Virus 2019-06-11 Completed Universit y of Vaccine Quad .5 mL 00:00:00 [facility] 6+ MO Branch TDAP (ADACEL) 2019-06-11 Completed University of VACCINE 00:00:00 [facility] Influenza Virus 2019-06-11 Completed Universit y of Vaccine Quad .5 mL 00:00:00 [place] [facility] IM 6+ MO Branch TDAP (ADACEL) 2019-06-11 Completed University of VACCINE 00:00:00 [facility] Influenza Virus 2019-06-11 Completed Universit y of Vaccine Quad .5 mL 00:00:00 [place] [facility] IM 6+ MO Branch TDAP (ADACEL) 2019-06-11 Completed University of VACCINE 00:00:00 [facility] Influenza Virus 2019-06-11 Completed Universit y of Vaccine Quad .5 mL 00:00:00 [place] [facility] IM 6+ MO Branch TDAP (ADACEL) 2019-06-11 Completed University of VACCINE 00:00:00 [facility] Pneumococcal 2017-03-16 Completed University o f Polysaccharide, 00:00:00 [place] Med ical PPSV23 (PNEUMOVAX) Branch Influenza Virus 2017-03-16 Completed Universit y of Vaccine Quad IM 00:00:00 [place] [facility] ical Multi-dose 6+ MO Branch Pneumococcal 2017-03-16 Completed University o f Polysaccharide, 00:00:00 [place] Med ical PPSV23 (PNEUMOVAX) Branch Influenza Virus 2017-03-16 Completed Universit y of Vaccine Quad IM 00:00:00 [place] [facility] ical Multi-dose 6+ MO Branch Pneumococcal 2017-03-16 Completed University o f Polysaccharide, 00:00:00 [place] Med ical PPSV23 (PNEUMOVAX) Branch Influenza Virus 2017-03-16 Completed Universit y of Vaccine Quad IM 00:00:00 [place] [facility] ical Multi-dose 6+ MO Branch Pneumococcal 2017-03-16 Completed University o f Polysaccharide, 00:00:00 [place] Med ical PPSV23 (PNEUMOVAX) Branch Influenza Virus 2017-03-16 Completed Universit y of Vaccine Quad IM 00:00:00 [place] [facility] ical Multi-dose 6+ MO Branch Pneumococcal 2017-03-16 Completed University o f Polysaccharide, 00:00:00 [place] Med ical PPSV23 (PNEUMOVAX) Branch Influenza Virus 2017-03-16 Completed Universit y of Vaccine Quad IM 00:00:00 [place] [facility] ical Multi-dose 6+ MO Branch Pneumococcal 2017-03-16 Completed University o f Polysaccharide, 00:00:00 [place] Med ical PPSV23 (PNEUMOVAX) Branch Influenza Virus 2017-03-16 Completed Universit y of Vaccine Quad IM 00:00:00 [place] Med ical Multi-dose 6+ MO Branch Pneumococcal 2017-03-16 Completed University o f Polysaccharide, 00:00:00 [place] Med ical PPSV23 (PNEUMOVAX) Branch Influenza Virus 2017-03-16 Completed Universit y of Vaccine Quad IM 00:00:00 [place] Med ical Multi-dose 6+ MO Branch Pneumococcal 2017-03-16 Completed University o f Polysaccharide, 00:00:00 [place] Med ical PPSV23 (PNEUMOVAX) Branch Influenza Virus 2017-03-16 Completed Universit y of Vaccine Quad IM 00:00:00 [place] Med ical Multi-dose 6+ MO Branch Pneumococcal 2017-03-16 Completed University o f Polysaccharide, 00:00:00 [place] Med ical PPSV23 (PNEUMOVAX) Branch Influenza Virus 2017-03-16 Completed Universit y of Vaccine Quad IM 00:00:00 [place] Med ical Multi-dose 6+ MO Branch Pneumococcal 2017-03-16 Completed University o f Polysaccharide, 00:00:00 [place] Med ical PPSV23 (PNEUMOVAX) Branch Influenza Virus 2017-03-16 Completed Universit y of Vaccine Quad IM 00:00:00 [place] Med ical Multi-dose 6+ MO Branch Pneumococcal 2017-03-16 Completed University o f Polysaccharide, 00:00:00 [place] Med ical PPSV23 (PNEUMOVAX) Branch Influenza Virus 2017-03-16 Completed Universit y of Vaccine Quad IM 00:00:00 [place] Med ical Multi-dose 6+ MO Branch Pneumococcal 2017-03-16 Completed University o f Polysaccharide, 00:00:00 [place] Med ical PPSV23 (PNEUMOVAX) Branch Influenza Virus 2017-03-16 Completed Universit y of Vaccine Quad IM 00:00:00 [place] Med ical Multi-dose 6+ MO Branch Pneumococcal 2017-03-16 Completed University o f Polysaccharide, 00:00:00 [place] Med ical PPSV23 (PNEUMOVAX) Branch Influenza Virus 2017-03-16 Completed Universit y of Vaccine Quad IM 00:00:00 [place] Med ical Multi-dose 6+ MO Branch Pneumococcal 2017-03-16 Completed University o f Polysaccharide, 00:00:00 [place] Med ical PPSV23 (PNEUMOVAX) Branch Influenza Virus 2017-03-16 Completed Universit y of Vaccine Quad IM 00:00:00 [place] Med ical Multi-dose 6+ MO Branch Pneumococcal 2017-03-16 Completed University o f Polysaccharide, 00:00:00 [place] Med ical PPSV23 (PNEUMOVAX) Branch Influenza Virus 2017-03-16 Completed Universit y of Vaccine Quad IM 00:00:00 [place] Med ical Multi-dose 6+ MO Branch Pneumococcal 2017-03-16 Completed University o f Polysaccharide, 00:00:00 [place] Med ical PPSV23 (PNEUMOVAX) Branch Influenza Virus 2017-03-16 Completed Universit y of Vaccine Quad IM 00:00:00 [place] Med ical Multi-dose 6+ MO Branch Pneumococcal 2017-03-16 Completed University o f Polysaccharide, 00:00:00 [place] Med ical PPSV23 (PNEUMOVAX) Branch Influenza Virus 2017-03-16 Completed Universit y of Vaccine Quad IM 00:00:00 [place] [facility] ical Multi-dose 6+ MO Branch Pneumococcal 2017-03-16 Completed University o f Polysaccharide, 00:00:00 [place] Med ical PPSV23 (PNEUMOVAX) Branch Influenza Virus 2017-03-16 Completed Universit y of Vaccine Quad IM 00:00:00 [place] Med ical Multi-dose 6+ MO Branch Pneumococcal 2017-03-16 Completed University o f Polysaccharide, 00:00:00 [place] Med ical PPSV23 (PNEUMOVAX) Branch Influenza Virus 2017-03-16 Completed Universit y of Vaccine Quad IM 00:00:00 [place] [facility] ical Multi-dose 6+ MO Branch Vital Signs Vital Name Observation Time Observation Value Comments Source Systolic blood 2019-06-11 19:30:00 163 mm[Hg] Univer sity of pressure [facility] Diastolic blood 2019-06-11 19:30:00 90 mm[Hg] Unive rsity of [facility] Heart rate 2019-06-11 19:30:00 108 /min General acute hospital Body temperature 2019-06-11 19:30:00 [facility].89 [facility] height 2019-06-11 19:30:00 182.9 cm General acute hospital Body weight 2019-06-11 19:30:00 125.193 kg General acute hospital BMI 2019-06-11 19:30:00 37.43 kg/m2 General acute hospital Procedures Procedure Date / Time Performing Clinician Source Performed REFUSAL OF NON-MEDICAL 2020-02-03 05:01:00 Doctor Unassigned, No [facility] SERVICES Name Medical Branch REFERRAL- 2019-07-31 05:01:00 Doctor Unassigned, No [facility] REQUEST/RESPONSE Name [facility] URINALYSIS 2019-06-11 20:21:00 Viola Aviles [facility] acute hospital COMP. METABOLIC PANEL 2019-06-11 20:08:00 [id number] LIPID PANEL 2019-06-11 20:08:00 Viola Aviles [facility] ([id number])(TOTAL Medical Branch CHOLESTEROL, TRIGLYCERIDES, HDL) IRON PANEL 2019-06-11 20:08:00 Stefan Viola John [facility] acute hospital CBC WITH DIFFERENTIAL 2019-06-11 20:08:00 [facility] 2019-06-11 20:08:00 Viola Aviles [facility] acute hospital THYROID STIMULATING 2019-06-11 20:08:00 [facility] Branch TDAP (ADACEL) 2019-06-11 20:01:28 Viloa Aviles [facility] IMMUNIZATION [facility] FLU VACC ([id number]), 2019-06-11 20:01:27 [facility] [place] 6+ MONTH[facility], IM, QUAD Medical Bran ch ASSIGNMENT OF BENEFITS 2019-06-11 18:57:55 Doctor Unassigned, No [facility] Encounters Start End Encounter Admission Attending Care Care Encounter Source Date/Time Date/Time Type Type Clinicians Facility Department ID 2020-05-28 2020-05-28 [facility] [id number] Univers 00:00:00 00:00:00 [facility] [id number] ity of [place] [id number] Gab as Professio [phone] [address] Office Building One 2020-03-28 2020-03-28 [facility] [id number] Univers 00:00:00 00:00:00 [facility] [id number] ity of [place] [id number] Gab as Professio [phone] [address] Office Building One 2020-03-04 2020-03-04 [facility] [id number] Univers 00:00:00 00:00:00 [facility] [id number] ity of [place] [id number] Gab as Professio [phone] [address] Office Building One 2020-02-03 2020-02-03 Orders Doctor ROSALES [id number] [id number] Univers 00:00:00 00:00:00 Only Unassigned, JC [id number] ity of [facility] [id number] Gab as [phone] [address] 2020-01-17 2020-01-17 [facility] [id number] Univers 00:00:00 00:00:00 [facility] [id number] ity of [place] [id number] Gab as Professio [phone] [address] Office [facility] One 2019-07-31 2019-07-31 Orders Doctor ROSALES [id number] Univers 00:00:00 00:00:00 Only Unassigned, JC [id number] ity of [facility] [id number] Gab as [phone] [address] 2019-07-31 2019-07-31 Telephone [facility] [id number] Univers 00:00:00 00:00:00 [facility] [id number] ity of [place] [id number] Gab as Professio [phone] [address] One 2019-06-28 2019-06-28 [place] [facility] [id number] Univers 00:00:00 00:00:00 [facility] [id number] ity of [place] [id number] Gab as Professio [phone] [address] Office [facility] One 2019-06-27 2019-06-27 Case Stefan [facility] 1.2.840.114 [id number] Univers 00:00:00 00:00:00 Management [facility] [id number] [place]y of [place] [id number] Gab as Professio [phone] [address] Office [facility] One 2019-06-26 2019-06-26 Telephone Stefan [facility] 1.2.840.114 [id number] Univers 00:00:00 00:00:00 [facility] [id number] ity of [place] [id number] Gab as Professio [phone] Wy seth sorensen [address] [place] [address] Office Building [facility] 2019-06-25 2019-06-25 [facility] 1.2.840.114 [id number] Univers 00:00:00 00:00:00 [facility] [id number] ity of [place] [id number] Gab as Professio [phone] [facility] franchesca [address] [place] [address] Office Building [facility] 2019-06-13 2019-06-13 [place] [facility] 1.2.840.114 [id number] Univers 00:00:00 00:00:00 [facility] [id number] ity of [place] [id number] Gab as Professio [phone] [facility] nal [address] [place] [address] Office Building One 2019-06-12 2019-06-12 Case [facility] [id number] Univers 00:00:00 00:00:00 Management [facility] [id number] ity of [place] [id number] Gab as Professio [phone] [facility] franchesca [address] [place] [address] 2019-06-11 2019-06-11 [facility] 1.2.840.114 [id number] Univers 12:59:44 14:18:43 Visit [facility] [id number] ity of [place] [id number] Gab as Professio [phone] [address] Office Building [facility] 2019-06-11 2019-06-11 Orders Doctor ROSALES 1.2.840.114 [id number] Univers 00:00:00 00:00:00 Only Unassigned, JC [id number] ity of [facility] [id number] Gab as [phone] [address] 2019-06-11 2019-06-11 Letter Stefan, [facility] 1.2.840.114 [id number] Univers 00:00:00 00:00:00 (Out) Viola Jobvite [id number] ity lulu Carlos [id number] Gab as Angelia [phone] [facility] Office [facility] One 2018-06-15 2018-06-15 [facility] [id number] [facility] 09:51:00 09:51:00 [facility] ent [facility] 2018-06-04 2018-06-04 [facility] [id number] 15:30:00 15:30:00 [facility] ent [facility] Results Test Description Test Time Test Comments Results Result Comments Source FERRITIN SERUM 2019-06-11 23:25:00 Test Item Value Reference Range Interpretation Comme nts FERRITIN (test code = [id number]) 532.0 ng/mL 18-464 H GUEVARA (test code = GUEVARA) Biotin has been reported to cause a negative bias, interpret results relative to patient's use of biotin. Lab Interpretation (test code = 98912-0) [facility]normal [facility] [id number] 23:25:00 Test Item Value Reference Range Interpretation Comments FERRITIN (test code = 532.0 ng/mL 18-464 H 7281028572) GUEVARA (test code = GUEVARA) Biotin has been reported to cause a negative bias, interpret results relative to patient's use of biotin. Lab Interpretation (test Abnormal code = 27557-3) [facility] [id number] 23:20:00 Test Item Value Reference Range Interpretation Comments TSH (test code = See_Comment [Automated message] [id number]) The system [employer] generated this result transmitted ref erence range: 0.45 - 4 .70 mIU/L. The refe rence range was not u sed to interpret this result as normal/abnor mal. Lab Interpretation (test Normal code = 37888-4) [facility] [id number] 23:20:00 Test Item Value Reference Range Interpretation Comments TSH (test code = See_Comment [Automated message] 8549621873) The system [employer] generated this result transmitted ref erence range: 0.45 - 4 .70 mIU/L. The refe rence range was not u sed to interpret this result as normal/abnor mal. Lab Interpretation (test Normal code = 24895-5) [facility] [id number] 23:00:00 Test Item Value Reference Range Interpretation Comments IRON (test code = 3280935881) 216 ug/dL 50-160 H TIBC (test code = 2465341487) 249 ug/dL 250-410 L % FE SAT (test code = 4559501779) 87 % 20-50 H Lab Interpretation (test code = Abnormal 26886-1) [facility] [id number] 23:00:00 Test Item Value Reference Range Interpretation Comments IRON (test code = 3060201508) 216 ug/dL 50-160 H TIBC (test code = 2744259602) 249 ug/dL 250-410 L % FE SAT (test code = 3697319285) 87 % 20-50 H Lab Interpretation (test code = Abnormal 59198-8) [facility] ([id number])(TOTAL CHOLESTEROL, TRIGLYCERIDES, HDL)2019-06-11 22:51:00 Test Item Value Reference Range Interpretation Comments CHOL (test code = 208 mg/dL 120-200 H 6155905125) HDL (test code = 34 mg/dL >40 L 8335496094) HDLC RATIO (test code = See_Comment H [Au tomated message] 9048845569) The system [employer] generated this result transmit tita reference range : <=5.0. The refe rence range was not u sed to interpret th is result as normal/abnormal . TRIG (test code = 199 mg/dL 30-170 H 7470179863) LDL CHOL (test code = 134 mg/dL See_Comment [Auto mated message] 18579-0) The system [employer] generated this result transmit tita reference range : <=160. The refe rence range was not u sed to interpret th is result as normal/abnormal . VLDL (test code = 40 mg/dL 5-60 3243501792) Lab Interpretation (test Abnormal code = 18767-1) [facility] METABOLIC PANEL ([id number])2019-06-11 22:51:00 Test Item Value Reference Range Interpretation Comments NA (test code = 137 mmol/L 135-145 7862392810) K (test code = 4.2 mmol/L 3.5-5 9151641188) CL (test code = 100 mmol/L 98-108 3516137695) CO2 TOTAL (test code = 26 mmol/L 23-31 9291869947) AGAP (test code = 2-16 0685680066) BUN (test code = 16 mg/dL 7-23 0824974914) GLUCOSE (test code = 291 mg/dL 70-110 H 5574051368) CREATININE (test code = 0.76 mg/dL 0.6-1.25 7950490439) TOTAL BILI (test code = 0.8 mg/dL 0.1-1.9 0048386283) CALCIUM (test code = 9.7 mg/dL 8.6-10.6 6081835393) T PROTEIN (test code = 8.3 g/dL 6.3-8.2 H 8768105331) ALBUMIN (test code = 4.5 g/dL 3.5-5 1991994945) ALK PHOS (test code = 112 U/L 34-122 9404682214) ALTv (test code = 69 U/L 5-50 H 1742-6) AST(SGOT) (test code = 42 U/L 13-40 H 8032267681) eGFR Calculation mL/min/1.73m2 (Non-) (test code = 9242664709) eGFR Calculation mL/min/1.73m2 () (test code = 8371230962) GUEVARA (test code = GUEVARA) Association of Glomerular Filtration Rate (GFR) and Staging of Kidney Disease* + --+ --+ ------+| GFR (mL/min/1.73 m2) ?| With Kidney Damage ?| ?Without Kidney Damage+ --------+ --------+ +| ?>90 ?| ?Stage one ?| ? Normal ?+ ---+ ---+ -------+| ?60-89 ?| ?Stage two ?| ? Decreased GFR ? + --+ --+ ------+| ?30-59 ?| ?Stage three ?| ? Stage three ? + --+ --+ ------+| ?15-29 ?| ?Stage four ? | ? Stage four ?+ ---+ ---+ -------+| ?<15 (or dialysis) ? ?| ?Stage five ? | ? Stage five ?+ ---+ ---+ -------+ *Each stage assumes the associated GFR level has been in effect for at least three months. ?Stages 1 to 5, with or without kidney disease, indicate chronic kidney disease. Notes: Determination of stages one and two (with eGFR >59mL/min/1.73 m2) requires estimation of kidney damage for at least three months as defined by structural or functional abnormalities of the kidney, manifested by either:Pathological abnormalities or Markers of kidney damage (including abnormalities in the composition of the blood or urine or abnormalities in imaging tests). Lab Interpretation Abnormal (test code = 41169-1) [facility] ([id number])(TOTAL CHOLESTEROL, TRIGLYCERIDES, HDL)2019-06-11 22:51:00 Test Item Value Reference Range Interpretation Comments CHOL (test code = 208 mg/dL 120-200 H 3314995915) HDL (test code = 34 mg/dL >40 L 5364377805) HDLC RATIO (test code = See_Comment H [Au tomated message] 2457436205) The system [employer] generated this result transmit tita reference range : <=5.0. The refe rence range was not u sed to interpret th is result as normal/abnormal . TRIG (test code = 199 mg/dL 30-170 H 5403235756) LDL CHOL (test code = 134 mg/dL See_Comment [Auto mated message] 68709-1) The system [employer] generated this result transmit tita reference range : <=160. The refe rence range was not u sed to interpret th is result as normal/abnormal . VLDL (test code = 40 mg/dL 5-60 7295293338) Lab Interpretation (test Abnormal code = 76070-6) [facility] METABOLIC PAN[facility] ([id number])2019-06-11 22:51:00 Test Item Value Reference Range Interpretation Comments NA (test code = 137 mmol/L 135-145 3698731093) K (test code = 4.2 mmol/L 3.5-5 0498199780) CL (test code = 100 mmol/L 98-108 6063722930) CO2 TOTAL (test code = 26 mmol/L 23-31 6303590189) AGAP (test code = 2-16 2372590298) BUN (test code = 16 mg/dL 7-23 2823535908) GLUCOSE (test code = 291 mg/dL 70-110 H 0945924190) CREATININE (test code = 0.76 mg/dL 0.6-1.25 1003003091) TOTAL BILI (test code = 0.8 mg/dL 0.1-1.6 6444673857) CALCIUM (test code = 9.7 mg/dL 8.6-10.6 1641290078) T PROTEIN (test code = 8.3 g/dL 6.3-8.2 H 6008614093) ALBUMIN (test code = 4.5 g/dL 3.5-5 6103652205) ALK PHOS (test code = 112 U/L 34-122 6599381500) ALTv (test code = 69 U/L 5-50 H 1742-6) AST(SGOT) (test code = 42 U/L 13-40 H 0114460161) eGFR Calculation mL/min/1.73m2 (Non-) (test code = 0427636225) eGFR Calculation mL/min/1.73m2 () (test code = 0652490968) GUEVARA (test code = GUEVARA) Association of Glomerular Filtration Rate (GFR) and Staging of Kidney Disease* + --+ --+ ------+| GFR (mL/min/1.73 m2) ?| With Kidney Damage ?| ?Without Kidney Damage+ --------+ --------+ +| ?>90 ?| ?Stage one ?| ? Normal ?+ ---+ ---+ -------+| ?60-89 ?| ?Stage two ?| ? Decreased GFR ? + --+ --+ ------+| ?30-59 ?| ?Stage three ?| ? Stage three ? + --+ --+ ------+| ?15-29 ?| ?Stage four ? | ? Stage four ?+ ---+ ---+ -------+| ?<15 (or dialysis) ? ?| ?Stage five ? | ? Stage five ?+ ---+ ---+ -------+ *Each stage assumes the associated GFR level has been in effect for at least three months. ?Stages 1 to 5, with or without kidney disease, indicate chronic kidney disease. Notes: Determination of stages one and two (with eGFR >59mL/min/1.73 m2) requires estimation of kidney damage for at least three months as defined by structural or functional abnormalities of the kidney, manifested by either:Pathological abnormalities or Markers of kidney damage (including abnormalities in the composition of the blood or urine or abnormalities in imaging tests). Lab Interpretation Abnormal (test code = 83115-4) [facility] 22:41:00 Test Item Value Reference Range Interpretation Comments APPEARANCE (test code = Clear Clear 2236256534) COLOR (test code = Yellow Yellow 0437685540) PH (test code = 4.8-8.0 1072511885) SP GRAVITY (test code = 1.003-1.030 H 2398679960) GLU U QUAL (test code = 500 mg/dL Normal A 1042462923) BLOOD (test code = Negative Negative 3743371204) KETONES (test code = Negative Negative 7390782582) PROTEIN (test code = Negative Negative 2887-8) UROBILIN (test code = Normal Normal 2430695515) BILIRUBIN (test code = Negative Negative 4576406431) NITRITE (test code = Negative Negative 4824817069) LEUK JERZY (test code = Negative Negative 7778086592) RBC/HPF (test code = See_Comment [Autom ated message] 7188724160) The system [employer] generated this result transmit tita reference range : 0 - 3 HPF. The refe rence range was not u sed to interpret th is result as normal/abnormal . WBC/HPF (test code = <1 See_Comment [Autom ated message] 1658169657) The system [employer] generated this result transmit tita reference range : 0 - 5 HPF. The refe rence range was not u sed to interpret th is result as normal/abnormal . BACTERIA (test code = Negative Negative 6212659597) Lab Interpretation (test Abnormal code = 01944-6) [facility] 22:41:00 Test Item Value Reference Range Interpretation Comments APPEARANCE (test code = Clear Clear 8202709863) COLOR (test code = Yellow Yellow 3821979669) PH (test code = 4.8-8.0 8791342965) SP GRAVITY (test code = 1.003-1.030 H 5134577972) GLU U QUAL (test code = 500 mg/dL Normal A 8521243857) BLOOD (test code = Negative Negative 6398227006) KETONES (test code = Negative Negative 9763821941) PROTEIN (test code = Negative Negative 2887-8) UROBILIN (test code = Normal Normal 0380133635) BILIRUBIN (test code = Negative Negative 4655181670) NITRITE (test code = Negative Negative 8521579813) LEUK JERZY (test code = Negative Negative 5586330227) RBC/HPF (test code = See_Comment [Autom ated message] 9640026259) The system [employer] generated this result transmit tita reference range : 0 - 3 HPF. The refe rence range was not u sed to interpret th is result as normal/abnormal . WBC/HPF (test code = <1 See_Comment [Autom ated message] 0166731465) The system [employer] generated this result transmit tita reference range : 0 - 5 HPF. The refe rence range was not u sed to interpret th is result as normal/abnormal . BACTERIA (test code = Negative Negative 6070643436) Lab Interpretation (test Abnormal code = 38128-6) [facility] WITH [id number] 22:26:00 Test Item Value Reference Range Interpretation Comments WBC (test code = See_Comment [Automated 9590-2) message] The sy stem which generated this result transmitted reference range : 4.20 - 10.70 10*3/?L. The reference range was not used to interpret this result as normal/abnormal . RBC (test code = See_Comment H [Automated 989-8) message] The sy stem which generated this result transmitted reference range : 4.26 - 5.52 10*6/?L. The reference range was not used to interpret this result as normal/abnormal . HGB (test code = 16.9 g/dL 12.2-16.4 H 718-7) HCT (test code = 49.5 % 38.4-49.3 H 4544-3) MCV (test code = 87.3 fL 81.7-95.6 787-2) MCH (test code = 29.8 pg 26.1-32.7 785-6) MCHC (test code = 34.1 g/dL 31.2-35 786-4) RDW-SD (test code = 38.3 fL 38.5-51.6 L 17216-2) RDW-CV (test code = 11.9 % 12.1-15.4 L 788-0) PLT (test code = See_Comment [Automated 777-3) message] The sy stem which generated this result transmitted reference range : 150 - 328 10*3/ ?L. The reference r ti was not used to interpret this result as normal/abnormal . MPV (test code = 11.0 fL 9.8-13 60600-4) NRBC/100 WBC (test See_Comment [Automat ed code = 4417135355) message] The system which generated this result transmitted reference range : 0.0 - 10.0 /100 WBCs. The refer ence range was not u sed to interpret th is result as normal/abnormal . NRBC x10^3 (test code <0.01 See_Comment [Auto mated = 6064805942) message] The s ystem which generated this result transmitted reference range : 10*3/?L. The reference range was not used to interpret this result as normal/abnormal . GRAN MAT (NEUT) % 50.5 % (test code = 770-8) IMM GRAN % (test code 0.50 % = 8649136098) LYMPH % (test code = 37.2 % 736-9) MONO % (test code = 8.8 % 5905-5) EOS % (test code = 2.7 % 713-8) BASO % (test code = 0.3 % 706-2) GRAN MAT x10^3(ANC) 4.70 10*3/uL 1.99-6.95 (test code = 7277263566) IMM GRAN x10^3 (test 0.05 10*3/uL 0-0.06 code = 2332626605) LYMPH x10^3 (test code 3.47 10*3/uL 1.09-3.23 H = 731-0) MONO x10^3 (test code 0.82 10*3/uL 0.36-1.02 = 742-7) EOS x10^3 (test code = 0.25 10*3/uL 0.06-0.53 711-2) BASO x10^3 (test code 0.03 10*3/uL 0.01-0.09 = 704-7) Lab Interpretation Abnormal (test code = 92070-8) [facility] WITH [id number] 22:26:00 Test Item Value Reference Range Interpretation Comments WBC (test code = See_Comment [Automated 3790-2) message] The sy stem which generated this result transmitted reference range : 4.20 - 10.70 10*3/?L. The reference range was not used to interpret this result as normal/abnormal . RBC (test code = See_Comment H [Automated 789-8) message] The sy stem which generated this result transmitted reference range : 4.26 - 5.52 10*6/?L. The reference range was not used to interpret this result as normal/abnormal . HGB (test code = 16.9 g/dL 12.2-16.4 H 718-7) HCT (test code = 49.5 % 38.4-49.3 H 4544-3) MCV (test code = 87.3 fL 81.7-95.6 787-2) MCH (test code = 29.8 pg 26.1-32.7 785-6) MCHC (test code = 34.1 g/dL 31.2-35 786-4) RDW-SD (test code = 38.3 fL 38.5-51.6 L 30355-8) RDW-CV (test code = 11.9 % 12.1-15.4 L 788-0) PLT (test code = See_Comment [Automated 777-3) message] The sy stem which generated this result transmitted reference range : 150 - 328 10*3/ ?L. The reference r ti was not used to interpret this result as normal/abnormal . MPV (test code = 11.0 fL 9.8-13 97967-8) NRBC/100 WBC (test See_Comment [Automat ed code = 4577501802) message] The system which generated this result transmitted reference range : 0.0 - 10.0 /100 WBCs. The refer ence range was not u sed to interpret th is result as normal/abnormal . NRBC x10^3 (test code <0.01 See_Comment [Auto mated = 1403678119) message] The s ystem which generated this result transmitted reference range : 10*3/?L. The reference range was not used to interpret this result as normal/abnormal . GRAN MAT (NEUT) % 50.5 % (test code = 770-8) IMM GRAN % (test code 0.50 % = 9967267672) LYMPH % (test code = 37.2 % 736-9) MONO % (test code = 8.8 % 5905-5) EOS % (test code = 2.7 % 713-8) BASO % (test code = 0.3 % 706-2) GRAN MAT x10^3(ANC) 4.70 10*3/uL 1.99-6.95 (test code = 9393091417) IMM GRAN x10^3 (test 0.05 10*3/uL 0-0.06 code = 9651747461) LYMPH x10^3 (test code 3.47 10*3/uL 1.09-3.23 H = 731-0) MONO x10^3 (test code 0.82 10*3/uL 0.36-1.02 = 742-7) EOS x10^3 (test code = 0.25 10*3/uL 0.06-0.53 711-2) BASO x10^3 (test code 0.03 10*3/uL 0.01-0.09 = 704-7) Lab Interpretation Abnormal (test code = 10450-5) [facility] [id number] 07:54:00 Test Item Value Reference Range Interpretation Comments GLUCOSE BEDSIDE TESTING (test code 298 MG/DL 60-99 H = GLUBED) BASIC METABOLIC [id number] 06:22:00 Test Item Value Reference Range Interpretation Comments SODIUM (test code = 137 MMOL/L 137-145 N NA) POTASSIUM (test code = 3.8 MMOL/L 3.5-5.1 N K) CHLORIDE (test code = 102 MMOL/L 98-107 N CL) CARBON DIOXIDE (test 27 MMOL/L 22-30 N code = CO2) GLUCOSE (test code = 265 MG/DL 74-106 H GLU) BLOOD UREA NITROGEN 11 MG/DL 9-20 N (test code = BUN) GLOMERULAR FILTRATION > 60 Report ing units: RATE (test code = GFR) ml/mi n/1.73 m2 (Modified MDRD Formula)Referen ce Range: > or = 6 0 ml/min/1.73 m2 CREATININE (test code 0.70 MG/DL 0.66-1.25 N = CREAT) CALCIUM (test code = 8.4 MG/DL 8.4-10.2 N CA) CBC W/AUTO [id number] 06:02:00 Test Item Value Reference Range Interpretation Comments WHITE BLOOD CELL (test code = 13.7 K/MM3 3.8-9.8 H WBC) RED BLOOD CELL (test code = 4.34 M/MM3 3.95-5.67 N RBC) HEMOGLOBIN (test code = HGB) 13.1 G/DL 12.4-16.7 N HEMATOCRIT (test code = HCT) 37.8 % 35.9-49.5 N MEAN CELL VOLUME (test code = 87 fL 81.7-96.1 N MCV) MEAN CELL HGB (test code = MCH) 30.2 pg 27.6-33.2 N MEAN CELL HGB CONCETRATION 34.7 % 32.9-35.5 N (test code = MCHC) RED CELL DISTRIBUTION WIDTH 11.9 % 12.1-15.2 L (test code = RDW) PLATELET COUNT (test code = 192 K/MM3 129-368 PLT) MEAN PLATELET VOLUME (test code 10.2 fl 7.4-10.4 N = MPV) NEUTROPHIL % (test code = NT%) 65.0 % 43-75 N IMMATURE GRANULOCYTE % (test 0.7 % 0.0-2.0 N code = IG%) LYMPHOCYTE % (test code = LY%) 23.0 % 14-44 N MONOCYTE % (test code = MO%) 10.1 % 4-13 N EOSINOPHIL % (test code = EO%) 1.0 % 0-6 N BASOPHIL % (test code = BA%) 0.2 % 0-2 N NUCLEATED RBC % (test code = 0.0 % 0-1.0 N NRBC%) NEUTROPHIL # (test code = NT#) 8.90 K/mm3 2.0-7.6 H IMMATURE GRANULOCYTE # (test 0.10 x10 3/uL 0-0.03 H code = IG#) LYMPHOCYTE # (test code = LY#) 3.14 K/mm3 1.0-3.8 N MONOCYTE # (test code = MO#) 1.38 K/mm3 0.1-0.8 H EOSINOPHIL # (test code = EO#) 0.13 K/mm3 0.0-0.2 N BASOPHIL # (test code = BA#) 0.03 K/mm3 0.0-0.2 N NUCLEATED RBC # (test code = 0.00 K/mm3 0.0-0.1 N NRBC#) GLYCOSYLATED HEMOGLOBIN [id number] 21:35:00 Test Item Value Reference Range Interpretation Comments GLYCOSYLATED 10.1 % 4.8-5.9 H Any condition t hat HEMOGLOBIN (HA1C) shortens e rythocyte (test code = survival or dec reasesmean GLYHGB) erythrocyte age (e.g., recovery from a cute blood loss,hemolytic anemia) will falsely lo wer HGBA1c resultsregardle ss of the method used. H GBA1c results from [facility] [place] HbSS, HbCC, and HbSc must be interpreted with cautiongiven th e pathological pr ocesses, including anemia,increase d red cell turnover, trans fusion requirements, thatadversely i mpact HGBA1c as a mar ker of long-term glycemiccontrol . Alternative for ms of testing such as fructosaminesho uld be considered for these patients. MEAN BLOOD GLUCOSE 243 MG/DL 70-110 H (test code = MBG) GLUCOSE BEDSIDE [id number] 19:51:00 Test Item Value Reference Range Interpretation Comments GLUCOSE BEDSIDE TESTING 432 MG/DL 60-99 HH Noti fied Nurse~ (test code = GLUBED) GLYCOSYLATED HEMOGLOBIN [id number] 17:21:00 Test Item Value Reference Range Interpretation Comments GLYCOSYLATED 10.1 % 4.8-5.9 H Any condition t hat HEMOGLOBIN (HA1C) shortens e rythocyte (test code = survival or dec reasesmean GLYHGB) erythrocyte age (e.g., recovery from a cute blood loss,hemolytic anemia) will falsely lo wer HGBA1c resultsregardle ss of the method used. H GBA1c results from [facility] [place] HbSS, HbCC, and HbSc must be interpreted with cautiongiven th e pathological pr ocesses, including anemia,increase d red cell turnover, trans fusion requirements, thatadversely i mpact HGBA1c as a mar ker of long-term glycemiccontrol . Alternative for ms of testing such as fructosaminesho uld be considered for these patients. MEAN BLOOD GLUCOSE 243 MG/DL 70-110 H (test code = MBG) ADD ONGLUCOSE BEDSIDE [id number] 15:43:00 Test Item Value Reference Range Interpretation Comments GLUCOSE BEDSIDE TESTING (test code 331 MG/DL 60-99 HH = GLUBED) GLUCOSE BEDSIDE [id number] 11:44:00 Test Item Value Reference Range Interpretation Comments GLUCOSE BEDSIDE TESTING (test code 400 MG/DL 60-99 HH = GLUBED) GLUCOSE BEDSIDE [id number] 07:59:00 Test Item Value Reference Range Interpretation Comments GLUCOSE BEDSIDE TESTING (test code 345 MG/DL 60-99 HH = GLUBED) BASIC METABOLIC [id number] 07:41:00 Test Item Value Reference Range Interpretation Comments SODIUM (test code = 136 MMOL/L 137-145 L NA) POTASSIUM (test code = 4.3 MMOL/L 3.5-5.1 N K) CHLORIDE (test code = 102 MMOL/L 98-107 N CL) CARBON DIOXIDE (test 25 MMOL/L 22-30 N code = CO2) ANION GAP (test code = 13 MMOL/L 14-24 L GAP) GLUCOSE (test code = 451 MG/DL 74-106 HH CALLED TO [facility]) READBACK ON 05/09 AT 0740 BY Prakash Skinner BLOOD UREA NITROGEN 14 MG/DL 9-20 N (test code = BUN) GLOMERULAR FILTRATION > 60 Report ing units: RATE (test code = GFR) ml/mi n/1.73 m2 (Modified MDRD Formula)Referen ce Range: > or = 6 0 ml/min/1.73 m2 CREATININE (test code 0.90 MG/DL 0.66-1.25 N = CREAT) CALCIUM (test code = 9.0 MG/DL 8.4-10.2 N CA) CBC W/AUTO [id number] 05:58:00 Test Item Value Reference Range Interpretation Comments WHITE BLOOD CELL (test code = 13.4 K/MM3 3.8-9.8 H WBC) RED BLOOD CELL (test code = 4.60 M/MM3 3.95-5.67 N RBC) HEMOGLOBIN (test code = HGB) 13.7 G/DL 12.4-16.7 HEMATOCRIT (test code = HCT) 40.0 % 35.9-49.5 MEAN CELL VOLUME (test code = 87 fL 81.7-96.1 N MCV) MEAN CELL HGB (test code = MCH) 29.8 pg 27.6-33.2 N MEAN CELL HGB CONCETRATION 34.3 % 32.9-35.5 N (test code = MCHC) RED CELL DISTRIBUTION WIDTH 12.0 % 12.1-15.2 L (test code = RDW) PLATELET COUNT (test code = 242 K/MM3 129-368 N PLT) MEAN PLATELET VOLUME (test code 10.8 fl 7.4-10.4 H = MPV) NEUTROPHIL % (test code = NT%) 65.7 % 43-75 N IMMATURE GRANULOCYTE % (test 0.3 % 0.0-2.0 N code = IG%) LYMPHOCYTE % (test code = LY%) 26.0 % 14-44 N MONOCYTE % (test code = MO%) 7.7 % 4-13 N EOSINOPHIL % (test code = EO%) 0.2 % 0-6 N BASOPHIL % (test code = BA%) 0.1 % 0-2 N NUCLEATED RBC % (test code = 0.0 % 0-1.0 N NRBC%) NEUTROPHIL # (test code = NT#) 8.78 K/mm3 2.0-7.6 H IMMATURE GRANULOCYTE # (test 0.04 x10 3/uL 0-0.03 H code = IG#) LYMPHOCYTE # (test code = LY#) 3.47 K/mm3 1.0-3.8 N MONOCYTE # (test code = MO#) 1.03 K/mm3 0.1-0.8 H EOSINOPHIL # (test code = EO#) 0.03 K/mm3 0.0-0.2 N BASOPHIL # (test code = BA#) 0.02 K/mm3 0.0-0.2 N NUCLEATED RBC # (test code = 0.00 K/mm3 0.0-0.1 N NRBC#) [id number] 12:25:00 Test Item Value Reference Range Interpretation Comments ACT-ISTAT (test code = ACTI) 301 SEC 74-137 H [id number] 12:25:00 Test Item Value Reference Range Interpretation Comments ACT-ISTAT (test code = ACTI) 307 SEC 74-137 H [id number] 12:25:00 Test Item Value Reference Range Interpretation Comments ACT-ISTAT (test code = ACTI) 329 SEC 74-137 H [id number] 12:25:00 Test Item Value Reference Range Interpretation Comments ACT-ISTAT (test code = ACTI) 340 SEC 74-137 H [id number] 12:25:00 Test Item Value Reference Range Interpretation Comments ACT-ISTAT (test code = ACTI) 284 SEC 74-137 H [id number] 12:25:00 Test Item Value Reference Range Interpretation Comments ACT-ISTAT (test code = ACTI) 224 SEC 74-137 H BASIC METABOLIC [id number] 07:24:00 Test Item Value Reference Range Interpretation Comments SODIUM (test code = 137 MMOL/L 137-145 N NA) POTASSIUM (test code = 4.0 MMOL/L 3.5-5.1 N K) CHLORIDE (test code = 105 MMOL/L 98-107 N CL) CARBON DIOXIDE (test 24 MMOL/L 22-30 N code = CO2) GLUCOSE (test code = 265 MG/DL 74-106 H GLU) BLOOD UREA NITROGEN 12 MG/DL 9-20 N (test code = BUN) GLOMERULAR FILTRATION > 60 Report ing units: RATE (test code = GFR) ml/mi n/1.73 m2 (Modified MDRD Formula)Referen ce Range: > or = 6 0 ml/min/1.73 m2 CREATININE (test code 0.80 MG/DL 0.66-1.25 N = CREAT) CALCIUM (test code = 10.2 MG/DL 8.4-10.2 N CA) [id number] 07:24:00 Test Item Value Reference Range Interpretation Comments MAGNESIUM (test code = MAG) 1.7 MG/DL 1.6-2.3 N PROTHROMBIN [id number] 07:21:00 Test Item Value Reference Range Interpretation Comments PROTHROMBIN TIME 11.4 SECONDS 9.6-11.6 N PATIENT (test code = PTP) INTERNATIONAL NORMAL 1.1 0.8-1.1 N The INR is to be RATIO (test code = used only for INR) monitoring oral anticoagulantth erap y. INDICATION I NR VALUE ---- ---- ---- -------1. Prophylaxis, de ep venous thrombos is, including hig h risk surgery. 2.0 - 3.0 2. Prophylaxis, de ep venous thrombos is, hip surgery, treatment for d eep venous thrombosis or pulmonary prevention of systemic emboli sm in patients wit h valvular heart disease, atrial fibrillation, tissue heart va lve, or acute myocar dial infarction. 2.0 - 3 .0 3. Mechanical prosthesis hear t valves, recurrent syste meghann embolism. 3.0 - 4.5 PTT [id number] 07:21:00 Test Item Value Reference Range Interpretation Comments PTT ACTIVATED (test code = APTT) 48.7 SECONDS 22.0-33.0 H CBC W/AUTO [id number] 07:11:00 Test Item Value Reference Range Interpretation Comments WHITE BLOOD CELL (test code = 11.0 K/MM3 3.8-9.8 H WBC) RED BLOOD CELL (test code = 5.25 M/MM3 3.95-5.67 N RBC) HEMOGLOBIN (test code = HGB) 15.7 G/DL 12.4-16.7 N HEMATOCRIT (test code = HCT) 44.8 % 35.9-49.5 N MEAN CELL VOLUME (test code = 85 fL 81.7-96.1 N MCV) MEAN CELL HGB (test code = MCH) 29.9 pg 27.6-33.2 N MEAN CELL HGB CONCETRATION 35.0 % 32.9-35.5 N (test code = MCHC) RED CELL DISTRIBUTION WIDTH 11.9 % 12.1-15.2 L (test code = RDW) PLATELET COUNT (test code = 277 K/MM3 129-368 N PLT) MEAN PLATELET VOLUME (test code 10.5 fl 7.4-10.4 H = MPV) NEUTROPHIL % (test code = NT%) 44.6 % 43-75 N IMMATURE GRANULOCYTE % (test 0.5 % 0.0-2.0 N code = IG%) LYMPHOCYTE % (test code = LY%) 41.1 % 14-44 N MONOCYTE % (test code = MO%) 10.0 % 4-13 N EOSINOPHIL % (test code = EO%) 3.3 % 0-6 N BASOPHIL % (test code = BA%) 0.5 % 0-2 N NUCLEATED RBC % (test code = 0.0 % 0-1.0 N NRBC%) NEUTROPHIL # (test code = NT#) 4.93 K/mm3 2.0-7.6 N IMMATURE GRANULOCYTE # (test 0.06 x10 3/uL 0-0.03 H code = IG#) LYMPHOCYTE # (test code = LY#) 4.53 K/mm3 1.0-3.8 H MONOCYTE # (test code = MO#) 1.10 K/mm3 0.1-0.8 H EOSINOPHIL # (test code = EO#) 0.36 K/mm3 0.0-0.2 H BASOPHIL # (test code = BA#) 0.05 K/mm3 0.0-0.2 N NUCLEATED RBC # (test code = 0.00 K/mm3 0.0-0.1 N NRBC#)"
[2021-06-03 03:42] LABS: Urine Blood Negative (Negative); Urine Glucose 3+ (Negative); Urine Protein Trace (Negative); Urine pH 5.5 (5.0-7.0)
[2021-06-03 03:53] LABS: Protime INR 1.15
[2021-06-03] MEDS ORDERED: dilTIAZem HCL 25 MG/5 ML VIAL IV ONE ×3 (03:53→04:18)
[2021-06-03 04:06] LABS: Hematocrit 45.7 % (39.6-49.0); Lymphocytes % 14.7 % (15.3-44.8); MPV 10.3 fL (7.6-11.3); RBC Red Blood Cell Count 5.18 M/uL (4.33-5.43)
[2021-06-03 04:24] LABS: Albumin 2.8 g/dL (3.4-5.0); Bilirubin Direct 0.3 mg/dL (0-0.2); Bilirubin Total 0.9 mg/dL (0.2-1.0); Magnesium 1.6 mg/dL (1.8-2.4); Potassium 3.7 mmol/L (3.5-5.1); Protein, Total 7.1 g/dL (6.4-8.2); Troponin High Sensitivity 40.6 pg/mL (<58.9)
[2021-06-03 04:28] LABS: SARS-COV-2 RT PCR NEGATIVE (NEGATIVE)
[2021-06-03] MEDS ORDERED: FUROSEMIDE 40 MG/4 ML VIAL ONE (04:45)
--- NOTE | 2021-06-03 04:47 | ER ---
Nurse's Notes [facility] Name: Yassine Calles Age: 40 yrs Sex: Male : 1980 Arrival Date: 06/03/2021 Time: 03:11 Bed 8 Private MD: Diagnosis: Unspecified atrial fibrillation;A. fib RVR, pulmonary edema, chest pain, medication noncompliance Presentation: 06/03 03:43 Chief complaint: Patient states: SOB. Coronavirus screen: Vaccine status: Patient st1 reports being unvaccinated. Client denies travel out of the [place] in the last 14 days. Ebola Screen: No symptoms or risks identified at this time. Risk Assessment: Do you want to hurt yourself or someone else? Patient reports no desire to harm self or others. Onset of symptoms was June 01, 2021. 03:43 Method Of Arrival: EMS: [facility] st1 03:43 Acuity: OCTAVIANO 2 st1 07:00 Initial Sepsis Screen: Does the patient meet any 2 criteria? RR > 20 per min. HR > 90 jl7 bpm. Does the patient have a suspected source of infection? No. Patient's initial sepsis screen is negative. Triage Assessment: 03:46 General: Appears distressed, uncomfortable, unkempt, well nourished, Behavior is st1 cooperative, anxious. Pain: Complains of pain in chest Pain does not radiate. Pain currently is 8 out of 10 on a pain scale. Cardiovascular: Reports chest pain, Rhythm is atrial fibrillation Chest pain. Historical: - Allergies: 03:45 No Known Allergies; st1 - PMHx: 03:44 Atrial Fib; Diabetes - NIDDM; Hyperlipidemia; DVT; cardiomyopathy; Hypertension; st1 Myocardial infarction; Pulmonary Embolism; 04:10 Deep vein thrombosis; st1 - Immunization history:: Pneumococcal vaccine status is unknown, Flu vaccine status is unknown. - Social history:: Smoking status: Patient reports the use of cigarette tobacco products, denies chronic smoking, but will smoke occasionally, Patient uses. Screenin:47 Abuse screen: Denies threats or abuse. Nutritional screening: No deficits noted. st1 Tuberculosis screening: No symptoms or risk factors identified. Fall Risk None identified. Assessment: 03:49 Pain: Pain began 2-3 days ago. st1 Vital Signs: 03:42 BP 160 / 90; Pulse 161; Resp 22; Temp 97.9; Pulse Ox 92% 2 lpm ; Weight 120.2 kg; st1 Height 6 ft. 1 in. (185.42 cm); Pain 8/10; 03:58 BP 160 / 90; Pulse 160; Resp 22; Pulse Ox 93% 2 lpm ; st1 04:08 BP 145 / 81; Pulse 152; Resp 22; Pulse Ox 93% on 2 lpm NC; st1 04:23 BP 127 / 97; Pulse 124; Resp 22; Pulse Ox 94% on 3 lpm NC; st1 04:49 BP 122 / 74; Pulse 140; Resp 22; Pulse Ox 97% on 3 lpm NC; st1 12:36 BP 120 / 109; Pulse 123; Resp 23; Pulse Ox 97% on R/A; ld1 03:42 Body Mass Index 34.96 (120.20 kg, 185.42 cm) st1 ED Course: 03:11 Patient arrived in ED. bb 03:12 Paulina Marino MD is Attending Physician. sp3 03:23 Kassie Pompa, JU is Primary Nurse. st1 03:23 XRAY Chest (1 view) Sent. st1 03:26 XRAY Chest (1 view) In Process Unspecified. EDMS 03:31 COVID-19/FLU A+B (Document "Date of Onset" if Symptomatic) Sent. st1 03:31 Basic Metabolic Panel Sent. st1 03:31 CBC with Diff Sent. st1 03:31 LFT's Sent. st1 03:31 Magnesium Sent. st1 03:31 PT-INR Sent. st1 03:31 Troponin HS Sent. st1 03:31 NT PRO-BNP Sent. st1 03:44 Triage completed. st1 03:47 Arm band placed on right wrist. Patient placed. st1 03:48 Maintain EMS IV. Dressing intact. Good blood return noted. Site clean \\T\\ dry. Gauge \\T\\ st 1 site: 20 g LEFT AC. Oxygen administration via nasal cannula \\T\\ 2L/min. 03:49 Patient has correct armband on for positive identification. Placed in gown. Bed in low st1 position. Call light in reach. Side rails up X 1. library monitor on. Pulse ox on. NIBP on. 03:57 Troponin HS Sent. st1 03:57 LFT's Sent. st1 03:57 Magnesium Sent. st1 03:57 NT PRO-BNP Sent. st1 03:58 Basic Metabolic Panel Sent. st1 03:58 CBC with Diff Sent. st1 04:12 O2 increased to 3 liters nasal cannula oxygen sat increased from 91-92 up to 94%. st1 04:46 Justin Johnson is Hospitalizing Provider. sp3 04:[address] Marino notified. st1 07:00 No provider procedures requiring assistance completed. Patient admitted, IV remains in jl7 place. intact, No redness/swelling at site. Administered Medications: 03:57 Drug: Cardizem (diltiazem) 10 mg Route: IVP; Infused Over: 2 mins; Site: left st1 antecubital; 04:02 Drug: Diltiazem 20 mg Route: IVP; Infused Over: 2 mins; Site: left antecubital; st1 04:23 Drug: Diltiazem 20 mg Route: IVP; Infused Over: 2 mins; Site: left antecubital; st1 04:48 Drug: Lasix (furosemide) 40 mg Route: IVP; Infused Over: 2 mins; Site: left antecubital;st1 05:00 Drug: Insulin Regular Human 10 units {Co-Signature: bradford (Shannan Trinidad RN).} Route: IVP; st1 Site: left antecubital; Outcome: 04:46 Decision to Hospitalize by Provider. sp3 07:00 Admitted to ER Hold. Please see [facility] for further documentation. jl7 07:00 Condition: stable 07:00 Discharge instructions given to patient, Instructed on the need for admit, Demonstrated understanding of instructions. 14:47 Patient left the ED. iw Signatures: Dispatcher [employer] EDMS Jody Benson RN RN bb Rosa Molina RN RN iw Vivian Callejas RN RN jl7 Kerline Cobb RN RN ld1 Paulina Marino MD MD sp3 Kassie Pompa RN RN st1 Shannan Trinidad RN sm5
--- NOTE | 2021-06-03 04:47 | EDPHYS ---
Physician Documentation [facility] Name: Yassine Calles Age: 40 yrs Sex: Male : 1980 Arrival Date: 06/03/2021 Time: 03:11 Bed 8 Private MD: ED Physician Pauilna Marino HPI: 06/03 03:14 This 40 yrs old Male presents to ER via Unassigned with complaints of Chest Pain. sp3 03:14 40-year-old male with a history of diabetes, atrial fibrillation, hypertension, and sp3 other unknown medical problems presents to the ED via EMS activated by himself for chief complaint chest pain, shortness of breath, epigastric pain, cough and possible COVID-19 exposure. Patient states that he has not been on any of his medications, which include Pradaxa for his A. fib, since the past 12 months secondary to "his leaving him". Patient states that his symptoms have progressed over the last 12 hours to the point where he had activated EMS. Symptoms are constant and he is vague about the peculiarities of it. Patient is not on insulin and has not been on any diabetic medications.. Historical: - Allergies: 03:45 No Known Allergies; st1 - PMHx: 03:44 Atrial Fib; Diabetes - NIDDM; Hyperlipidemia; DVT; cardiomyopathy; Hypertension; st1 Myocardial infarction; Pulmonary Embolism; 04:10 Deep vein thrombosis; st1 - Immunization history:: Pneumococcal vaccine status is unknown, Flu vaccine status is unknown. - Social history:: Smoking status: Patient reports the use of cigarette tobacco products, denies chronic smoking, but will smoke occasionally, Patient uses. ROS: 03:19 Constitutional: Negative for fever, chills, and weight loss, Eyes: Negative for injury, sp3 pain, redness, and discharge, ENT: Negative for injury, pain, and discharge, Neck: Negative for injury, pain, and swelling, Back: Negative for injury and pain, MS/Extremity: Negative for injury and deformity, Skin: Negative for injury, rash, and discoloration, Neuro: Negative for headache, weakness, numbness, tingling, and seizure. 03:19 All other systems are negative. Exam: 03:20 Constitutional: This is a well developed, well nourished patient who is awake, alert, sp3 and in no acute distress. Head/Face: Normocephalic, atraumatic. Eyes: Pupils equal round and reactive to light, extra-ocular motions intact. Lids and lashes normal. Conjunctiva and sclera are non-icteric and not injected. Cornea within normal limits. Periorbital areas with no swelling, redness, or edema. ENT: Nares patent. No nasal discharge, no septal abnormalities noted. External auditory canals are clear. Oropharynx with no redness, swelling, or masses, exudates, or evidence of obstruction, uvula midline. Mucous membranes moist. Neck: Trachea midline, no thyromegaly or masses palpated, and no cervical lymphadenopathy. Supple, full range of motion without nuchal rigidity, or vertebral point tenderness. No Meningismus. Chest/axilla: Normal chest wall appearance and motion. Nontender with no deformity. No lesions are appreciated. Back: No spinal tenderness. No costovertebral tenderness. Full range of motion. Skin: Warm, dry with normal turgor. Normal color with no rashes, no lesions, and no evidence of cellulitis. MS/ Extremity: Pulses equal, no cyanosis. Neurovascular intact. Full, normal range of motion. Neuro: Awake and alert, GCS 15, oriented to person, place, time, and situation. Cranial nerves II-XII grossly intact. Motor strength 5/5 in all extremities. Sensory grossly intact. Cerebellar exam normal. Normal gait. Psych: Awake, alert, with orientation to person, place and time. Behavior, mood, and affect are within normal limits. 03:20 Cardiovascular: Patient has atrial fibrillation with RVR in the 120-140 range. Cardiac exam otherwise normal with no murmurs rubs or gallops.. 03:20 Respiratory: Patient was respiratory rate 16-20 with mild Rales bibasilarly with no evidence of respiratory distress or compromise.. 03:20 Abdomen/GI: Patient has mild epigastric tenderness with no peritoneal signs, rebound, guarding or CVA tenderness.. 03:52 ECG was reviewed by the Attending Physician. Chest x-ray demonstrates atrial sp3 fibrillation with RVR at 169 bpm with normal intervals other than the TN, normal QRS, normal axis, poor R wave progression in the precordial leads. Vital Signs: 03:42 BP 160 / 90; Pulse 161; Resp 22; Temp 97.9; Pulse Ox 92% 2 lpm ; Weight 120.2 kg; st1 Height 6 ft. 1 in. (185.42 cm); Pain 8/10; 03:58 BP 160 / 90; Pulse 160; Resp 22; Pulse Ox 93% 2 lpm ; st1 04:08 BP 145 / 81; Pulse 152; Resp 22; Pulse Ox 93% on 2 lpm NC; st1 04:23 BP 127 / 97; Pulse 124; Resp 22; Pulse Ox 94% on 3 lpm NC; st1 04:49 BP 122 / 74; Pulse 140; Resp 22; Pulse Ox 97% on 3 lpm NC; st1 12:36 BP 120 / 109; Pulse 123; Resp 23; Pulse Ox 97% on R/A; ld1 03:42 Body Mass Index 34.96 (120.20 kg, 185.42 cm) st1 MDM: 03:12 Patient medically screened. sp3 03:21 Data reviewed: vital signs, nurses notes. ED course: 40-year-old male presents with a sp3 myriad of symptoms including chest pain, epigastric pain, shortness of breath, COVID-19 exposure. Extensive work-up will be undertaken including full cardiac work-up, urinalysis, COVID-19 test. Differential diagnosis is broad we must differentiate between A. fib RVR versus diabetic ketoacidosis given his blood sugar in the 500 range versus sepsis or COVID etiology for his tachycardia. No beta-blockers or rate controlling AV adrienne agents will be given until we delineate the true source of his tachycardia. Patient is otherwise stable and is likely been in this state for quite some time. It is prudent to take our time and adequately and accurately delineate his work-up. Patient will be admitted depending on his patient course and data that is returned. We will hold on anticoagulation since he has been off his Pradaxa for 12 months. To consider Lovenox at the end of his ED stay or during his inpatient admission or defer to cardiology. Patient does not have any focal neurological deficits or stroke symptoms at this time.. 04:23 ED course: A total of 50 mg of Cardizem has been given and heart rate is now down in sp3 the 110s to 120s down from 160s to 180s. COVID-19 and chemistries are still outstanding. Urinalysis showed no ketones in the urine so chance of DKA is extremely low. We will consider Lasix if COVID-19 test is negative given pulmonary edema versus overlaid viral pneumonia pattern on chest x-ray. Patient is subjectively improved. I have spoken to internal medicine will be admitting the patient once exact diagnosis is fully delineated.. 04:43 ED course: Patient's COVID-19 test is negative and remainder of work-up is not sp3 significantly remarkable. BNP is elevated and chest x-ray does demonstrate pulmonary edema. Will administer 40 mg of Lasix IV and admit patient at this time. Heart rate remains in the 120s with a blood pressure of 128/90. Rate control will be further controlled after some the pulmonary edema is resolved. Further AV adrienne agents may be given if heart rate persists greater than 120 otherwise 100-120 would be in acceptable range until fluid status is normalized. Further management per cardiology and internal medicine.. 06/03 03:13 Order name: Basic Metabolic Panel; Complete Time: 04:41 sp3 06/03 03:13 Order name: CBC with Diff; Complete Time: 04:22 sp3 06/03 03:13 Order name: LFT's; Complete Time: 04:41 sp3 06/03 03:13 Order name: Magnesium; Complete Time: 04:41 sp3 06/03 03:13 Order name: NT PRO-BNP; Complete Time: 04:41 sp3 06/03 03:13 Order name: PT-INR; Complete Time: 04:22 sp3 06/03 03:13 Order name: Troponin HS; Complete Time: 04:41 sp3 06/03 03:13 Order name: COVID-19/FLU A+B (Document "Date of Onset" if Symptomatic); Complete Time: mw2 04:41 06/03 03:40 Order name: Urine Dipstick-Ancillary; Complete Time: 03:48 EDMS 06/03 05:04 Order name: Glucose, Ancillary Testing EDMS 06/03 06:33 Order name: Glucose, Ancillary Testing EDMS 06/03 07:48 Order name: Glucose, Ancillary Testing EDMS 06/03 08:02 Order name: Troponin High Sensitivity EDMS 06/03 08:05 Order name: Hemoglobin A1c EDMS 06/03 03:13 Order name: XRAY Chest (1 view) sp3 06/03 03:13 Order name: EKG; Complete Time: 03:14 sp3 06/03 03:13 Order name: Cardiac monitoring; Complete Time: 03:23 sp3 06/03 03:13 Order name: EKG - Nurse/Tech; Complete Time: 03:23 sp3 06/03 03:13 Order name: IV Saline Lock; Complete Time: 03:41 sp3 06/03 03:13 Order name: Labs collected and sent; Complete Time: 03:35 sp3 06/03 03:13 Order name: O2 Per Protocol; Complete Time: 03:23 sp3 06/03 03:13 Order name: O2 Sat Monitoring; Complete Time: 03:23 sp3 06/03 03:13 Order name: Urine Dipstick-Ancillary (obtain specimen); Complete Time: 03:35 sp3 06/03 05:26 Order name: CONS Physician Consult [facility] 06/03 11:28 Order name: Glucose, Ancillary Testing EDAK Administered Medications: 03:57 Drug: Cardizem (diltiazem) 10 mg Route: IVP; Infused Over: 2 mins; Site: left st1 antecubital; 04:02 Drug: Diltiazem 20 mg Route: IVP; Infused Over: 2 mins; Site: left antecubital; st1 04:23 Drug: Diltiazem 20 mg Route: IVP; Infused Over: 2 mins; Site: left antecubital; st1 04:48 Drug: Lasix (furosemide) 40 mg Route: IVP; Infused Over: 2 mins; Site: left antecubital;st1 05:00 Drug: Insulin Regular Human 10 units {Co-Signature: sm5 (Shannan Trinidad RN).} Route: IVP; st1 Site: left antecubital; Disposition Summary: 06/03/21 04:46 Hospitalization Ordered Hospitalization Status: Inpatient Admission sp3 Provider: Justin Johnson sp3 Condition: Fair sp3 Problem: chronic sp3 Symptoms: have worsened sp3 Bed/Room Type: Standard sp3 Location: Telemetry/MedSurg (Inpatient)(06/03/21 12:23) dw Room Assignment: 204(06/03/21 12:23) dw Diagnosis - Unspecified atrial fibrillation sp3 - A. fib RVR, pulmonary edema, chest pain, medication noncompliance sp3 Forms: - Medication Reconciliation Form sp3 - SBAR form sp3 Signatures: Dispatcher [employer] EDCarolin Hayes RN RN dw Mireille Red RN RN eb1 Paulina Marino MD MD sp3 Kassie Pompa RN RN st1 Shannan Trinidad RN sm5 Corrections: (The following items were deleted from the chart) 05:33 04:46 Telemetry/MedSurg (Inpatient) sp3 eb1 05:33 04:46 sp3 eb1 12:23 05:33 [facility] ER HOLD eb1 dw 12:23 05:33 ERHOLD- eb1 dw
[2021-06-03] MEDS ORDERED: INSULIN -REGULAR HUMAN 50 UNIT/0.5 ML ML ONE ×3 (04:57→11:44)
[2021-06-03] MEDS ORDERED: ONDANSETRON 4 MG/2 ML VIAL IV PRN (05:45)
[2021-06-03] MEDS ORDERED: MORPHINE 2 MG/ML SYR IV PRN (05:45)
[2021-06-03] MEDS ORDERED: ACETAMINOPHEN 500 MG TAB PO PRN (05:45)
[2021-06-03] MEDS ORDERED: MAGNESIUM SULFATE 1 gm IVPB 1 GM/100 ML BAG IV ONE ×2 (06:01→06:26)
--- NOTE | 2021-06-03 06:14 | P.HP ---
Certification for Inpatient Patient admitted to: Inpatient With expected LOS: >2 Midnights Practitioner: I am a practitioner with admitting privileges, knowledge of patient current condition, hospital course, and medical plan of care. Services: Services provided to patient in accordance with Admission requirements found in Title 42 Section 412.3 of the Code of Federal Regulations Patient History Date of Service: 06/03/21 Reason for admission: afib with rvr, pulmonary edema History of Present Illness: Mr. Calles is a 40 yo M with atrial fibrillation, DM, HTN, HLD, history of multiple DVTs and PEs, CAD, anxiety who presents with chest pain and SOB. Tonight he felt dizzy and as if he could not take a deep inhale. He says for the past few weeks he has had orthopnea, PND, cough. Denies edema, palpitations. He says it has become more difficult for him to walk long distances. Denies palpitations and edema. He had not been taking his medications for the past year because he from his and he was on her insurance plan. He was found to be in afib with RVR upon arrival, responsive to diltiazem. CXR showed pulmonary edema, and he received IV lasix. WBC 13.3 Na 135 Glu 454 Mg 1.6 Dbili 0.3 alk phos 139 BNP 2974 Allergies No Known Drug Allergies Allergy (Verified 04/02/18 22:10) Unknown Home Medications: Aspirin 1 tab PO DAILY 05/30/18 Atorvastatin Calcium 1 tab PO DAILY 05/30/18 Docosahexanoic AC/Epa [Fish Oil 1,000 MG*] 1 cap PO BID 05/30/18 Furosemide 1 tab PO DAILY 05/30/18 Metformin HCl 1 tab PO BID 05/30/18 lisinopriL [Lisinopril] 1 tab PO DAILY 05/30/18 Phenytoin Sodium Extended [Dilantin] 300 mg PO DAILY AFTER SUPPER 90 Days #90 capsule 06/01/18 Dabigatran Etexilate Mesylate [Pradaxa] 150 mg PO BID 90 Days #180 capsule 06/03/18 Digoxin [Lanoxin] 1 tab PO DAILY 90 Days #90 tablet 06/03/18 Sotalol HCl [Betapace*] 80 mg PO BID 6AM 6PM 90 Days #180 tab 06/03/18 - Past Medical/Surgical History Diabetic: Yes -: A-fib -: Cardiomyopathy -: HTN -: PE -: DVT -: PR -: NIDDM -: HTN -: cardiac ablation - Family History Father -: Other (see notes) Notes: multiple back surgeries, otherwise unaware of any other medical problems - Social History Smoking Status: Current some day smoker Alcohol use: No CD- Drugs: No Caffeine use: No Place of Residence: Home Review of Systems 10-point ROS is otherwise unremarkable General: Unremarkable Eyes: Unremarkable ENT: Unremarkable Respiratory: Cough, Shortness of Breath, SOB with Excertion Cardiovascular: Chest Pain, Orthopnea, Paroxysmal Noc. Dyspnea, Light Headedness, As per HPI Gastrointestinal: Unremarkable Genitourinary: Unremarkable Musculoskeletal: Unremarkable Integumentary: Unremarkable Neurological: Unremarkable Lymphatics: Unremarkable Physical Examination - Physical Exam General: Alert, In no apparent distress HEENT: Atraumatic, PERRLA, Mucous membr. moist/pink, EOMI, Sclerae nonicteric Neck: Supple, 2+ carotid pulse no bruit, No LAD, Without JVD or thyroid abnormality Respiratory: Normal air movement, Crackles/rales Cardiovascular: Normal S1 S2, Irregular heart rate/rhythm Gastrointestinal: Normal bowel sounds, No tenderness Musculoskeletal: No tenderness Integumentary: No rashes Neurological: Normal speech, Normal strength at 5/5 x4 extr, Normal tone, Normal affect Lymphatics: No axilla or inguinal lymphadenopathy - Studies Laboratory Data (last 24 hrs) 06/03/21 03:30: PT 13.3 H, INR 1.15 06/03/21 03:30: WBC 13.30 H, Hgb 15.2, Hct 45.7, Plt Count 262 06/03/21 03:30: Sodium 135 L, Potassium 3.7, BUN 13, Creatinine 1.02, Glucose 454 H*, Magnesium 1.6 L D, Total Bilirubin 0.9, AST 31, ALT 56, Alkaline Phosphatase 139 H Assessment and Plan - Problems (Diagnosis) (1) T2DM (type 2 diabetes mellitus) Current Visit: Yes Status: Chronic Qualifiers: Diabetes mellitus shelter insulin use: without terminal operations manager use Diabetes mellitus complication status: with hyperglycemia Qualified Code(s): E11.65 - Type 2 diabetes mellitus with hyperglycemia (2) History of DVT (deep vein thrombosis) Current Visit: Yes Status: Chronic (3) Pulmonary edema Current Visit: Yes Status: Acute Qualifiers: Chronicity: acute Qualified Code(s): J81.0 - Acute pulmonary edema (4) Atrial fibrillation Onset Date: 04/03/18 Current Visit: No Status: Acute (5) Chest pain Onset Date: 10/17/14 Current Visit: No Status: Acute Qualifiers: Chest pain type: unspecified Qualified Code(s): R07.9 - Chest pain, unspecified (6) HTN (hypertension) Onset Date: 06/01/18 Current Visit: No Status: Chronic Qualifiers: Hypertension type: primary hypertension Qualified Code(s): I10 - Essential (primary) hypertension - Plan cardiology consulted on tele, trend troponins, repeat EKG metoprolol PO BID continue IV lasix ECHO pending, fluid restrict, O2 as needed lipid and thyroid levels pending daily ASA, atorvastatin DVT ppx Discharge Plan: Home Plan to discharge in: 48 Hours - Advance Directives Does patient have a Living Will: No Does patient have a Durable POA for Healthcare: No - Code Status/Comfort Care Code Status Assessed: Yes (full code ) Critical Care: No Time Spent Managing Pts Care (In Minutes): 70
[2021-06-03] MEDS: INSULIN -REGULAR HUMAN 50 UNIT/0.5 ML ML SQ SCH ×4 (07:30→21:54)
[2021-06-03] MEDS ORDERED: INFLUENZA VACCINE (for 6+ mo) 0.5 ML DOSE IMVAC ONE (08:00)
[2021-06-03] MEDS ORDERED: PNEUMOCOCCAL VACCINE 0.5 ML IMVAC ONE (08:00)
[2021-06-03] MEDS ORDERED: METOPROLOL TAR 50 MG TAB ONE (08:54)
[2021-06-03] MEDS ORDERED: ASPIRIN EC 81 MG TAB PO ONE (08:55)
[2021-06-03] MEDS: ASPIRIN EC 81 MG TAB PO SCH (09:00)
[2021-06-03] MEDS ORDERED: METOPROLOL TAR 50 MG TAB PO SCH (09:00)
[2021-06-03] MEDS: DABIGATRAN 75 MG CAP PO SCH ×2 (09:00→22:23)
[2021-06-03] MEDS ORDERED: ENOXAPARIN 40 MG/0.4 ML SQ SCH (09:00)
[2021-06-03] MEDS: FUROSEMIDE 40 MG/4 ML VIAL IV SCH ×2 (09:00→16:00)
--- NOTE | 2021-06-03 10:07 | RAD REPORT ---
EXAM DESCRIPTION: RAD - Chest Single View - 06/03/2021 3:26 am CLINICAL HISTORY: CHEST PAIN Chest pain. COMPARISON: Chest Single View dated 05/30/2018; Chest Single View dated 04/02/2018; Chest Pa And Lat ( 2 Views) dated 03/04/2017; CHEST SINGLE VIEW dated 10/16/2014 FINDINGS: Portable technique limits examination quality. Moderate to significant bilateral pulmonary opacities are present likely representing pneumonia or le ss likely pulmonary edema. The heart is moderately enlarged in size. No displaced fractures.
[2021-06-03 16:01] VITALS: BMI 33.6
--- NOTE | 2021-06-03 16:50 | CON ---
Date of Consultation: 06/03/2021 Reason For Consultation: AFib with RVR and heart failure. History Of Present Illness: A 40-year-old male with history of atrial fibrillation, diabetes, hypert ension, dyslipidemia, history of DVTs and PEs in the past, coronary artery disease, presented with sh ortness of breath and orthopnea and tachycardia, was found to be in AFib with RVR and acute heart trevon lure. The patient used to follow up in [facility], but he ran out of his medications, so he presented to [facility] emergency room with fast heart rate and shortness of breath. Past Medical History: As outlined above in HPI. Medication: Refer to reconciliation sheet for detailed list. Allergies: NO KNOWN DRUG ALLERGIES. Social History: He is a smoker. Does not drink. Family History: No premature coronary artery disease or cancer. Review of Systems: All systems reviewed and they were negative except for what mentioned in HPI. Physical Examination: Vital Signs: Reviewed. Head and Neck: Pupils are equal, reactive to light. Intact eye movements. Positive JVD. No cervic al lymphadenopathy. Neck is supple. Thyroid is not enlarged. Lungs: Crackles in both lung bases. No accessory muscle use or muscle retraction. Heart: Irregularly irregular. No extra sounds. Abdomen: Soft, nontender. Bowel sounds positive. No organomegaly. No masses or hernia. No rigidi ty or tenderness. Extremities: No clubbing or cyanosis. Trace edema. Skin: No rashes. Neurologic: Alert, awake, oriented x3. No acute focal deficits appreciated. Investigations: Troponin is negative. NT-proBNP is 2134. Assessment And Recommendations: 1.Atrial fibrillation with rapid ventricular response. Recommend to start sotalol 80 mg q.12 hours and daily EKG while he is on that and in the interim use metoprolol IV 5 mg every 1 hour as needed fo r rate control. 2.Congestive heart failure exacerbation. EF is 40% to 45%, probably exacerbated due to the atrial f ibrillation. We will attempt to convert the atrial fibrillation in sinus rhythm. We will start sota lol and recommend Lasix 40 mg IV q.12 hours and carefully monitor electrolytes, BUN, creatinine, and urine output. SR/MODL Voice ID: [id number] Report ID: [id number]
--- NOTE | 2021-06-03 17:22 | P.PN ---
Date of Service: 06/03/21 Patient seen and examined. Patient reports feeling much better. States that shortness of breath has significantly improved. He request to go home today. Diagnosis: Rapid atrial fibrillation Acute on chronic diastolic heart failure. Acute respiratory failure with hypoxia. DM type II History of DVT. Plan: Patient seen by cardiology-Dr. Scales. Cardioversion per Dr. Scales and so started on sotalol with serial EKG. Patient is anticoagulated with Pradaxa. Echocardiogram is pending. Patient clinically improved and weaned off oxygen to room air Insulin sliding scale for glucose management
[2021-06-03] MEDS ORDERED: METOPROLOL TARTRATE 5 MG/5 ML INJ IV PRN (17:25)
[2021-06-03] MEDS: SOTALOL HCL 80 MG TAB PO SCH (18:01)
[2021-06-03] MEDS: ATORVASTATIN 40 MG TAB PO SCH (21:54)
[2021-06-03] MEDS: DABIGATRAN 150 MG CAP PO SCH (22:31)
[2021-06-04] MEDS: SOTALOL HCL 80 MG TAB PO SCH ×2 (05:18→17:00)
[2021-06-04 05:41] LABS: Absolute Lymphocytes (CBC) 3.9 K/uL (0.7-4.9); Hematocrit 45.1 % (39.6-49.0); Lymphocytes % 37.5 % (15.3-44.8); MPV 9.6 fL (7.6-11.3); RBC Red Blood Cell Count 5.13 M/uL (4.33-5.43)
[2021-06-04] MEDS: DABIGATRAN 150 MG CAP PO SCH ×2 (08:02→20:27)
[2021-06-04] MEDS: FUROSEMIDE 40 MG/4 ML VIAL IV SCH ×2 (08:03→16:59)
[2021-06-04] MEDS: ASPIRIN EC 81 MG TAB PO SCH (08:03)
[2021-06-04 08:16] LABS: ALT/SGPT 41 U/L (12-78); AST/SGOT 27 U/L (15-37); Albumin 2.5 g/dL (3.4-5.0); Alkaline Phosphatase 100 U/L (45-117); BUN Blood Urea Nitrogen 22 mg/dL (7-18); Bicarbonate 25 mmol/L (21-32); Glucose Level 245 mg/dL (74-106); HDL Cholesterol 28 mg/dL (40-60); LDL Cholesterol, Calculated 113 (<130); Magnesium 1.9 mg/dL (1.8-2.4); Potassium 3.4 mmol/L (3.5-5.1); Protein, Total 6.3 g/dL (6.4-8.2); Sodium Level 138 mmol/L (136-145); Thyroid Stimulating Hormone 0.757 uIU/mL (0.360-3.740)
--- NOTE | 2021-06-04 08:18 | ECHO ---
HEIGHT: 6 ft 1 in WEIGHT: 254 lb 12.8 oz DATE OF STUDY: 06/03/[address]: Mohsen Bowling 2-DIMENSIONAL: YES M.MODE: YES DOPPLER: YES COLOR FLOW: YES TDS: NO PORTABLE: NO DEFINITY: NO BUBBLE STUDY: NO DIAGNOSIS: PULMONARY EDEMA CARDIAC HISTORY: CATHERIZATION: NO SURGERY: NO PROSTHETIC VALVE: NO PACEMAKER: NO MEASUREMENTS (cm) DIASTOLIC (NORMALS) SYSTOLIC (NORMALS) IVSd 1.1 (0.6-1.2) LA Diam 3.6 (1.9-4.0) LVEF 43% LVIDd 5.3 (3.5-5.7) LVIDs 4.2 (2.0-3.5) %FS 21% LVPWd 1.2 (0.6-1.2) Ao Diam 2.7 (2.0-3.7) 2 DIMENSIONAL ASSESSMENT: RIGHT ATRIUM: NORMAL LEFT ATRIUM: ENLARGED RIGHT VENTRICLE: NORMAL LEFT VENTRICLE: DEPRESSED TRICUSPID VALVE: NORMAL MITRAL VALVE: PULMONIC VALVE: NORMAL AORTIC VALVE: NORMAL PERICARDIAL EFFUSION: NONE AORTIC ROOT: NORMAL LEFT VENTRICULAR WALL MOTION: MILD GLOBAL HYPOKINESIS. DOPPLER/COLOR FLOW: SEE BELOW. COMMENTS: MILDLY DEPRESSED LEFT VENTRICULAR EJECTION FRACTION 40-45%. MILD GLOBAL HYPOKINESIS. MILD MITRAL REGURGITATION. LEFT ATRIAL ENLARGEMENT. ATRIAL FIBRILLATION. TECHNOLOGIST: Derrick MAJANO
[2021-06-04] MEDS: INSULIN -REGULAR HUMAN 50 UNIT/0.5 ML ML SQ SCH ×4 (09:32→20:31)
[2021-06-04] MEDS ORDERED: POTASSIUM CL SA 10 MEQ TAB PO ONE ×2 (09:51→15:00)
--- NOTE | 2021-06-04 14:03 | P.PN ---
Subjective Date of Service: 06/04/21 Chief Complaint: afib with rvr, pulmonary edema Patient reports feeling better. He still remained in atrial fibrillation. He states the shortness of breath have significantly improved. Physical Examination - Vital Signs Temperature: 98.2 F Blood Pressure: 149/65 Pulse: 145 Respirations: 20 Pulse Ox (%): 95 - Physical Exam General: Alert, In no apparent distress, Oriented x3 HEENT: Mucous membr. moist/pink Neck: JVD not distended Respiratory: Clear to auscultation bilaterally, Normal air movement Cardiovascular: No edema, Regular rate/rhythm, Normal S1 S2 Gastrointestinal: Soft and benign, Non-distended, No tenderness Musculoskeletal: No swelling Integumentary: No rashes, No erythema, No cyanosis Neurological: Normal speech, Normal strength at 5/5 x4 extr Lymphatics: No axilla or inguinal lymphadenopathy Assessment And Plan - Current Problems (Diagnosis) (1) Acute on chronic diastolic heart failure Current Visit: Yes Status: Acute (2) Atrial fibrillation with RVR Current Visit: Yes Status: Acute (3) Pulmonary edema Current Visit: Yes Status: Acute Qualifiers: Chronicity: acute Qualified Code(s): J81.0 - Acute pulmonary edema (4) T2DM (type 2 diabetes mellitus) Current Visit: Yes Status: Chronic Qualifiers: Diabetes mellitus termination clerk insulin use: without termination clerk use Diabetes mellitus complication status: with hyperglycemia Qualified Code(s): E11.65 - Type 2 diabetes mellitus with hyperglycemia (5) HTN (hypertension) Onset Date: 06/01/18 Current Visit: No Status: Chronic Qualifiers: Hypertension type: primary hypertension Qualified Code(s): I10 - Essential (primary) hypertension - Plan History of atrial fibrillation status post electrocardioversion and cardiac ablation about 4 years ago. Patient seen by cardiology who recommended rhythm control. Patient started on sotalol for rhythm control and waiting for him to cardiovert. He remained in A. fib Continue IV Lasix IV metoprolol as needed for rapid heart rate. Echocardiogram results reviewed. EF 40 to 45%. Monitor and optimize electrolytes. Keep potassium level greater than 4 and magnesium greater than 2. Cardiology to follow. Add low-dose metoprolol for blood pressure and also to improve his heart rate.
[2021-06-04 14:04] LABS: Urine Appearance CLEAR (Clear); Urine Bilirubin NEGATIVE (Negative); Urine Blood NEGATIVE (Negative); Urine Color YELLOW (Yellow); Urine Glucose 3+ (Negative); Urine Protein TRACE (Negative); Urine Specific Gravity >=1.030 (1.005-1.030)
[2021-06-04 14:12] LABS: Urine Microscopic Reflex ORDER UMIC
[2021-06-04] MEDS ORDERED: METOPROLOL TAR 25 MG TAB PO ONE (15:00)
[2021-06-04] MEDS ORDERED: Magnesium Sulfate 2gm IVPB 2 G/50 ML BAG IV ONE (15:00)
[2021-06-04 15:40] LABS: Urine Bacteria <20 /HPF (NONE SEEN); Urine RBC <5 /HPF (NONE SEEN)
[2021-06-04] MEDS: METOPROLOL TAR 25 MG TAB PO SCH (18:40)
[2021-06-04] MEDS: ATORVASTATIN 40 MG TAB PO SCH (20:27)
[2021-06-05] MEDS: SOTALOL HCL 80 MG TAB PO SCH (05:12)
[2021-06-05] MEDS: METOPROLOL TAR 25 MG TAB PO SCH (05:13)
[2021-06-05 05:51] LABS: Absolute Lymphocytes (CBC) 3.5 K/uL (0.7-4.9); Hematocrit 44.7 % (39.6-49.0); Lymphocytes % 35.1 % (15.3-44.8); MPV 9.5 fL (7.6-11.3); RBC Red Blood Cell Count 5.07 M/uL (4.33-5.43)
[2021-06-05 06:06] LABS: BUN Blood Urea Nitrogen 16 mg/dL (7-18); Bicarbonate 27 mmol/L (21-32); Glucose Level 280 mg/dL (74-106); Potassium 3.9 mmol/L (3.5-5.1); Sodium Level 138 mmol/L (136-145)
[2021-06-05] MEDS: INSULIN -REGULAR HUMAN 50 UNIT/0.5 ML ML SQ SCH ×4 (08:56→20:43)
[2021-06-05] MEDS: ASPIRIN EC 81 MG TAB PO SCH (08:57)
[2021-06-05] MEDS: FUROSEMIDE 40 MG/4 ML VIAL IV SCH ×2 (08:57→17:06)
[2021-06-05] MEDS: DABIGATRAN 150 MG CAP PO SCH ×2 (08:57→21:10)
[2021-06-05] MEDS ORDERED: POTASSIUM CL SA 10 MEQ TAB PO ONE (09:00)
--- NOTE | 2021-06-05 13:05 | P.PN ---
Subjective Date of Service: 06/05/21 Chief Complaint: afib with rvr, pulmonary edema Patient denies any shortness of breath today He remain in atrial fibrillation and states his heart rate increased to the 160s with exertion. Physical Examination - Vital Signs Temperature: 97.6 F Blood Pressure: 101/65 Pulse: 72 Respirations: 18 Pulse Ox (%): 92 Assessment And Plan - Current Problems (Diagnosis) (1) Acute on chronic diastolic heart failure Current Visit: Yes Status: Acute (2) Atrial fibrillation with RVR Current Visit: Yes Status: Acute (3) Pulmonary edema Current Visit: Yes Status: Acute Qualifiers: Chronicity: acute Qualified Code(s): J81.0 - Acute pulmonary edema (4) T2DM (type 2 diabetes mellitus) Current Visit: Yes Status: Chronic Qualifiers: Diabetes mellitus skilled nursing insulin use: without terminal operator use Diabetes mellitus complication status: with hyperglycemia Qualified Code(s): E11.65 - Type 2 diabetes mellitus with hyperglycemia (5) HTN (hypertension) Onset Date: 06/01/18 Current Visit: No Status: Chronic Qualifiers: Hypertension type: primary hypertension Qualified Code(s): I10 - Essential (primary) hypertension - Plan Physical examination General: Alert, In no apparent distress, Oriented x3 HEENT: Mucous membr. moist/pink Neck: JVD not distended Respiratory: Clear to auscultation bilaterally, Normal air movement Cardiovascular: No edema, irregular rhythm, Normal S1 S2 Gastrointestinal: Soft and benign, Non-distended, No tenderness Musculoskeletal: No swelling Integumentary: No rashes, No erythema, No cyanosis Neurological: Normal speech, Normal strength at 5/5 x4 extr Lymphatics: No axilla or inguinal lymphadenopathy History of atrial fibrillation status post electrocardioversion and cardiac ablation about 4 years ago. Patient seen by cardiology who recommended rhythm control. Patient started on sotalol for rhythm control but still in A. fib and rate uncontrolled with exertion. Cardiology to follow. Transition from IV Lasix to oral Lasix. IV metoprolol as needed for rapid heart rate. Echocardiogram results reviewed. EF 40 to 45%. Monitor and optimize electrolytes. Keep potassium level greater than 4 and magnesium greater than 2.
[2021-06-05] MEDS: INSULIN GLARGINE 100 UNIT/ML SQ SCH (15:11)
[2021-06-05] MEDS ORDERED: AMIODARONE HCL 150 MG in D5W 100 ML IV STA (15:13)
--- NOTE | 2021-06-05 15:51 | PN ---
Date of Progress Note: 06/05/2021 Subjective: Seen by bedside. He is doing better clinically, however, continues to have a fast heart rate, still in atrial fibrillation despite being placed on sotalol. Review of Systems: Shortness of breath on exertion as well as palpitations on exertion. Rest of systems reviewed are ne gative. Physical Examination: Vital Signs: Temperature is 97.6, pulse 72-110, breathing 18, blood pressure is 101/65. General: The pleasant young male, in no distress. Head and Neck: Pupils are equal, reactive to light. Intact eye movements. No JVD. No cervical lym phadenopathy. Neck is supple. Thyroid was not enlarged. Heart: Irregularly irregular. No extra sounds. Abdomen: Soft, nontender. Bowel sounds positive. No organomegaly. No masses or hernia. No rigidi ty or tenderness. Extremities: No edema, clubbing, cyanosis. Intact pulses. Skin: No rash was noted. Neurologic: Alert, awake. No acute focal deficits appreciated. Investigations: White blood counts 10.10, hemoglobin 15. Troponins are negative. Assessment And Recommendations: 1.Atrial fibrillation with rapid ventricular response. The patient still not having a good heart ra te control and there is a problem with his blood pressure being low and not allowing to use the rate- controlling medicines very well. At this point, I will recommend that to switch him to amiodarone in travenously, load him over the next 24 hours. Just to give a bolus of 150 mg over 10 minutes and the n 1 mg/minute for 6 hours and then 0.5 mg/minute for 16 hours and to stop the sotalol and will try to introduce metoprolol along with the amiodarone at a later time in attempts to convert to sinus rhyth m and controlled heart rate. 2.Heart failure with systolic dysfunction. Cardiac troponins are negative. The Lasix has significantly improved his symptoms. I recommend to switch him to oral Lasi x 40 mg by mouth twice a day. SR/MODL Voice ID: [id number] Report ID: [id number]
[2021-06-05] MEDS: ATORVASTATIN 40 MG TAB PO SCH (20:43)
[2021-06-06 06:01] LABS: BUN Blood Urea Nitrogen 17 mg/dL (7-18); Bicarbonate 26 mmol/L (21-32); Glucose Level 239 mg/dL (74-106); Potassium 3.5 mmol/L (3.5-5.1); Sodium Level 136 mmol/L (136-145)
[2021-06-06] MEDS ORDERED: POTASSIUM CL SA 10 MEQ TAB PO ONE (06:15)
[2021-06-06] MEDS: ASPIRIN EC 81 MG TAB PO SCH (08:22)
[2021-06-06] MEDS: INSULIN -REGULAR HUMAN 50 UNIT/0.5 ML ML SQ SCH ×4 (08:22→20:22)
[2021-06-06] MEDS: INSULIN GLARGINE 100 UNIT/ML SQ SCH (08:23)
[2021-06-06] MEDS: FUROSEMIDE 40 MG/4 ML VIAL IV SCH (08:23)
[2021-06-06] MEDS: POTASSIUM CL SA 10 MEQ TAB PO SCH ×2 (08:24→12:05)
[2021-06-06] MEDS: DABIGATRAN 150 MG CAP PO SCH ×2 (09:38→20:22)
[2021-06-06] MEDS: METOPROLOL TAR 25 MG TAB PO SCH ×2 (09:38→16:56)
[2021-06-06] MEDS: AMIODARONE HCL 900 MG in Dextrose 5%-Water 482 ML IV SCH (09:56)
--- NOTE | 2021-06-06 10:45 | P.PN ---
Subjective Date of Service: 06/06/21 Chief Complaint: afib with rvr, pulmonary edema Patient remain in atrial fibrillation on amiodarone drip He denies shortness of breath. He has no other complaint. Physical Examination - Vital Signs Temperature: 97.7 F Blood Pressure: 138/106 Pulse: 138 Respirations: 23 Pulse Ox (%): 96 Assessment And Plan - Current Problems (Diagnosis) (1) Acute on chronic diastolic heart failure Current Visit: Yes Status: Acute (2) Atrial fibrillation with RVR Current Visit: Yes Status: Acute (3) Pulmonary edema Current Visit: Yes Status: Acute Qualifiers: Chronicity: acute Qualified Code(s): J81.0 - Acute pulmonary edema (4) T2DM (type 2 diabetes mellitus) Current Visit: Yes Status: Chronic Qualifiers: Diabetes mellitus senior living insulin use: without senior living use Diabetes mellitus complication status: with hyperglycemia Qualified Code(s): E11.65 - Type 2 diabetes mellitus with hyperglycemia (5) HTN (hypertension) Onset Date: 06/01/18 Current Visit: No Status: Chronic Qualifiers: Hypertension type: primary hypertension Qualified Code(s): I10 - Essential (primary) hypertension - Plan Physical examination General: Alert, In no apparent distress. Neck: JVD not distended Respiratory: Clear to auscultation bilaterally, Normal air movement Cardiovascular: No edema, irregular rhythm, Normal S1 S2 Gastrointestinal: Soft and benign, Non-distended, No tenderness Musculoskeletal: No swelling Integumentary: No rashes, No erythema, No cyanosis Neurological: Normal speech, Normal strength at 5/5 x4 extr Plan: History of atrial fibrillation status post electrocardioversion and cardiac ablation about 4 years ago. Cardiology recommended replacement sotalol with amiodarone drip. Patient tr ansferred to the ICU yesterday, given a bolus of amiodarone and started on amiodarone drip. He is still in A. fib with rapid ventricular rate on the drip. Added metoprolol 25 mg twice daily as his BP will tolerate. Cardiology to follow. oral Lasix. IV metoprolol as needed for rapid heart rate. Echocardiogram results reviewed. EF 40 to 45%. Patient with hypokalemia. Replace potassium to keep potassium level greater than 4 and magnesium as needed to keep level greater than 2.
[2021-06-06] MEDS: ATORVASTATIN 40 MG TAB PO SCH (20:22)
[2021-06-07 04:56] LABS: Absolute Lymphocytes (CBC) 3.1 K/uL (0.7-4.9); Hematocrit 47.5 % (39.6-49.0); Lymphocytes % 26.5 % (15.3-44.8); MPV 9.1 fL (7.6-11.3); RBC Red Blood Cell Count 5.42 M/uL (4.33-5.43)
[2021-06-07 05:15] LABS: BUN Blood Urea Nitrogen 16 mg/dL (7-18); Bicarbonate 26 mmol/L (21-32); Glucose Level 300 mg/dL (74-106); Potassium 3.9 mmol/L (3.5-5.1); Sodium Level 136 mmol/L (136-145)
[2021-06-07] MEDS ORDERED: POTASSIUM CL SA 10 MEQ TAB PO ONE (05:39)
[2021-06-07] MEDS: METOPROLOL TAR 25 MG TAB PO SCH ×2 (05:57→16:44)
[2021-06-07] MEDS: FUROSEMIDE 40 MG TABLET PO SCH (08:02)
[2021-06-07] MEDS: INSULIN -REGULAR HUMAN 50 UNIT/0.5 ML ML SQ SCH ×4 (08:03→20:08)
[2021-06-07] MEDS: DABIGATRAN 150 MG CAP PO SCH ×2 (08:03→20:08)
[2021-06-07] MEDS: ASPIRIN EC 81 MG TAB PO SCH (08:03)
[2021-06-07] MEDS: INSULIN GLARGINE 100 UNIT/ML SQ SCH (08:03)
--- NOTE | 2021-06-07 13:26 | P.PN ---
Subjective Date of Service: 06/07/21 Chief Complaint: afib with rvr, pulmonary edema Patient remain in atrial fibrillation on amiodarone drip He denies shortness of breath. His activity increases his heart rate to 140s to 160s. Physical Examination - Vital Signs Temperature: 97.7 F Blood Pressure: 121/83 Pulse: 120 Respirations: 18 Pulse Ox (%): 96 - Physical Exam General: Alert, In no apparent distress, Oriented x3 HEENT: Mucous membr. moist/pink Neck: JVD not distended Respiratory: Clear to auscultation bilaterally, Normal air movement Cardiovascular: No edema, Normal S1 S2, Irregular heart rate/rhythm Gastrointestinal: Soft and benign, Non-distended Musculoskeletal: No swelling Integumentary: No rashes, No erythema, No cyanosis Neurological: Normal strength at 5/5 x4 extr Assessment And Plan - Current Problems (Diagnosis) (1) Acute on chronic diastolic heart failure Current Visit: Yes Status: Acute (2) Atrial fibrillation with RVR Current Visit: Yes Status: Acute (3) Pulmonary edema Current Visit: Yes Status: Acute Qualifiers: Chronicity: acute Qualified Code(s): J81.0 - Acute pulmonary edema (4) T2DM (type 2 diabetes mellitus) Current Visit: Yes Status: Chronic Qualifiers: Diabetes mellitus longwall headgate operator insulin use: without half-way use Diabetes mellitus complication status: with hyperglycemia Qualified Code(s): E11.65 - Type 2 diabetes mellitus with hyperglycemia (5) HTN (hypertension) Onset Date: 06/01/18 Current Visit: No Status: Chronic Qualifiers: Hypertension type: primary hypertension Qualified Code(s): I10 - Essential (primary) hypertension - Plan Physical examination General: Alert, In no apparent distress. Neck: JVD not distended Respiratory: Clear to auscultation bilaterally, Normal air movement Cardiovascular: No edema, irregular rhythm, Normal S1 S2 Gastrointestinal: Soft and benign, Non-distended, No tenderness Musculoskeletal: No swelling Integumentary: No rashes, No erythema, No cyanosis Neurological: Normal speech, Normal strength at 5/5 x4 extr Plan: History of atrial fibrillation status post electrocardioversion and cardiac abl ation about 4 years ago. Patient's A. fib has now responded to sotalol or amiodarone drip. Continue metoprolol Cardiology to follow for further recommendations. Continue oral Lasix. IV metoprolol as needed for rapid heart rate. Echocardiogram results reviewed. EF 40 to 45%. Monitor electrolytes and replete potassium to keep potassium level greater than 4 and magnesium as needed to keep level greater than 2.
[2021-06-07 14:40] LABS: Magnesium 2.4 mg/dL (1.8-2.4); Phosphorus 3.1 mg/dL (2.5-4.9)
[2021-06-07] MEDS ORDERED: METOPROLOL TAR 50 MG TAB PO SCH (18:00)
[2021-06-07] MEDS: ATORVASTATIN 40 MG TAB PO SCH (20:08)
[2021-06-07] MEDS: AMIODARONE HCL 900 MG in Dextrose 5%-Water 482 ML IV SCH (23:39)
[2021-06-08] MEDS: METOPROLOL TAR 50 MG TAB PO SCH ×3 (00:09→17:07)
[2021-06-08 04:57] LABS: Absolute Lymphocytes (CBC) 2.4 K/uL (0.7-4.9); Hematocrit 47.6 % (39.6-49.0); Lymphocytes % 18.3 % (15.3-44.8); MPV 9.4 fL (7.6-11.3); RBC Red Blood Cell Count 5.43 M/uL (4.33-5.43)
[2021-06-08 05:11] LABS: Potassium 3.9 mmol/L (3.5-5.1)
--- NOTE | 2021-06-08 06:05 | P.PN ---
Date of Service: 06/08/21 Subjective: feels about the same, remains in afib, HR: 110-130s no new complaints ROS: 10 point ROS reviewed, symptoms as noted above Physical Exam Gen: NAD HEENT: normal conjunctiva, sclera anicteric CV: irregularly irregular rhythm, no murmur, no edema Pulm: clear to auscultation bilaterally, no wheeze/rhonchi Abd: soft, nontender, nondistended Neuro: normal affect, normal mood Problem List Acute on chronic diastolic CHF Afib with RVR, paroxysmal, prior ablation T2DM, non-insulin dependent HTN History of atrial fibrillation s/p electrocardioversion and cardiac ablation ~4yrs ago Continues in afibe with HR: 120s,despite trying sotalol, then switched to amiodarone drip+ metoprolol Cardiology consulted, recommend adding digoxin possible cardioversion tomorrow Continue oral Lasix. IV metoprolol as needed for rapid heart rate. Echocardiogram results reviewed. EF 40 to 45%. Monitor electrolytes and replete potassium to keep potassium level greater than 4 and magnesium as needed to keep level greater than 2. VTE: pradaxa Code: full Dispo: anticipate dc home in 1-2 days Time Spent Managing Pts Care (In Minutes): 35
[2021-06-08] MEDS: INSULIN -REGULAR HUMAN 50 UNIT/0.5 ML ML SQ SCH ×4 (09:05→20:18)
[2021-06-08] MEDS: FUROSEMIDE 40 MG TABLET PO SCH (09:05)
[2021-06-08] MEDS: INSULIN GLARGINE 100 UNIT/ML SQ SCH (09:05)
[2021-06-08] MEDS: ASPIRIN EC 81 MG TAB PO SCH (09:07)
[2021-06-08] MEDS: DABIGATRAN 150 MG CAP PO SCH ×2 (09:07→20:04)
[2021-06-08] MEDS: AMIODARONE HCL 200 MG TAB PO SCH ×2 (10:17→20:05)
[2021-06-08] MEDS: DIGOXIN 0.25 MG TABLET PO SCH (11:24)
[2021-06-08] MEDS: ATORVASTATIN 40 MG TAB PO SCH (20:06)
[2021-06-09] MEDS: METOPROLOL TAR 50 MG TAB PO SCH ×3 (00:44→17:00)
[2021-06-09 01:36] VITALS: O2SAT 98
[2021-06-09 05:08] LABS: Absolute Lymphocytes (CBC) 3.5 K/uL (0.7-4.9); Hematocrit 45.6 % (39.6-49.0); Lymphocytes % 20.2 % (15.3-44.8); RBC Red Blood Cell Count 5.24 M/uL (4.33-5.43)
--- NOTE | 2021-06-09 06:02 | P.PN ---
Date of Service: 06/09/21 Subjective: ROS: 10 point ROS reviewed, symptoms as noted above Physical Exam Gen: NAD HEENT: normal conjunctiva, sclera anicteric CV: irregularly irregular rhythm, no murmur, no edema Pulm: clear to auscultation bilaterally, no wheeze/rhonchi Abd: soft, nontender, nondistended Neuro: normal affect, normal mood Problem List Acute on chronic diastolic CHF Afib with RVR, paroxysmal, prior ablation T2DM, non-insulin dependent HTN History of atrial fibrillation s/p electrocardioversion and cardiac ablation ~4yrs ago Continues in afibe with HR: 120s,despite trying sotalol, then switched to amiodarone drip+ metoprolol Cardiology consulted, recommend adding digoxin possible cardioversion tomorrow Continue oral Lasix. IV metoprolol as needed for rapid heart rate. Echocardiogram results reviewed. EF 40 to 45%. Monitor electrolytes and replete potassium to keep potassium level greater than 4 and magnesium as needed to keep level greater than 2. VTE: pradaxa Code: full Dispo: anticipate dc home in 1-2 days Time Spent Managing Pts Care (In Minutes): 35
[2021-06-09 06:14] LABS: BUN Blood Urea Nitrogen 14 mg/dL (7-18); Bicarbonate 24 mmol/L (21-32); Glucose Level 196 mg/dL (74-106); Magnesium 1.7 mg/dL (1.8-2.4); Phosphorus 3.2 mg/dL (2.5-4.9); Potassium 4.1 mmol/L (3.5-5.1); Sodium Level 133 mmol/L (136-145)
[2021-06-09] MEDS ORDERED: MIDAZOLAM HCL 2 MG/2 ML INJ ONE (07:01)
[2021-06-09] MEDS ORDERED: METOPROLOL TARTRATE 5 MG/5 ML INJ IV ONE (07:13)
[2021-06-09] MEDS ORDERED: MIDAZOLAM HCL 5 ML ONE (07:28)
[2021-06-09] MEDS: INSULIN -REGULAR HUMAN 50 UNIT/0.5 ML ML SQ SCH ×3 (07:30→16:30)
--- NOTE | 2021-06-09 07:31 | RAD REPORT ---
EXAM DESCRIPTION: RAD - Chest Single View - 06/09/2021 7:21 am CLINICAL HISTORY: eval pulm opacities COMPARISON: Chest Single View dated 06/03/2021; Chest Single View dated 05/30/2018; Chest Single View d ated 04/02/2018; Chest Pa And Lat (2 Views) dated 03/04/2017 FINDINGS: Lines: None. Lungs: No evidence of edema or pneumonia. Improved aeration of the lungs bilaterally. Pleural: No significant pleural effusions or pneumothorax. Cardiac: Mild cardiomegaly. Bones: No acute fractures. Other: IMPRESSION: Lungs are now clear presumably due to resolved pulmonary edema.
[2021-06-09] MEDS: ASPIRIN EC 81 MG TAB PO SCH (10:50)
[2021-06-09] MEDS: DIGOXIN 0.25 MG TABLET PO SCH (10:50)
[2021-06-09] MEDS: FUROSEMIDE 40 MG TABLET PO SCH (10:50)
[2021-06-09] MEDS: DABIGATRAN 150 MG CAP PO SCH (10:51)
[2021-06-09] MEDS: AMIODARONE HCL 200 MG TAB PO SCH (10:51)
[2021-06-09] MEDS: INSULIN GLARGINE 100 UNIT/ML SQ SCH (10:51)
[2021-06-09] MEDS ORDERED: MAGNESIUM SULFATE 1 gm IVPB 1 GM/100 ML BAG IV ONE (14:00)
--- NOTE | 2021-06-09 14:53 | RAD REPORT ---
EXAM DESCRIPTION: CT - Chest Angio - 06/09/2021 2:16 pm CLINICAL HISTORY: Chest pain. r/o PE, eval pneumonia COMPARISON: Chest For Pe Angio dated 04/02/2018 TECHNIQUE: CT angiogram of the pulmonary arteries was performed with MIP. All CT scans are performed using dose optimization technique as appropriate and may include automated exposure control or mA/KV adjustment according to patient size. FINDINGS: No evidence of pulmonary thromboembolism. No acute aortic finding demonstrated. Numerous small ground-glass nodules are present throughout both lungs in the periphery suspicious for atypical or viral infection. Mildly prominent lymph nodes are seen in the mediastinum and hilum. No significant pericardial or pleural fluid. No concerning bony finding. IMPRESSION: No evidence of pulmonary thromboembolism. Small areas of ground-glass opacities in the periphery of both lungs probably represent viral infecti on/ atypical infection. Mildly prominent lymph nodes are seen in the mediastinum and hilum.
[2021-06-09 17:17] VITALS: BP 101/86
[2021-06-09 18:52] VITALS: TEMP 97.4
--- NOTE | 2021-06-09 20:32 | P.DS ---
Admission Date: 06/03/21 Discharge Date: 06/09/21 Disposition: ROUTINE DISCHARGE Discharge Condition: GOOD Reason for Admission: afib with rvr, pulmonary edema Procedures: Echo (06/03): mildly depressed LVEF: 40-45%. Mild global hypokinesis. mild MR. LA enlargement. Atrial fibrillation CXR (06/03): Moderate to significant bilateral pulmonary opacities are present likely representing pneumonia or less likely pulmonary edema. The heart is moderately enlarged in size. No displaced fractures. CXR (06/09): FINDINGS: Lines: None. Lungs: No evidence of edema or pneumonia. Improved aeration of the lungs bilaterally. Pleural: No significant pleural effusions or pneumothorax. Cardiac: Mild cardiomegaly. Bones: No acute fractures. Other: IMPRESSION: Lungs are now clear presumably due to resolved pulmonary edema. CTA Chest (06/09): FINDINGS: No evidence of pulmonary thromboembolism. No acute aortic finding demonstrated. Numerous small ground-glass nodules are present throughout both lungs in the periphery suspicious for atypical or viral infection. Mildly prominent lymph nodes are seen in the mediastinum and hilum. No significant pericardial or pleural fluid. No concerning bony finding. IMPRESSION: No evidence of pulmonary thromboembolism. Small areas of ground-glass opacities in the periphery of both lungs probably represent viral infection/ atypical infection. Mildly prominent lymph nodes are seen in the mediastinum and hilum. Problem List Acute on chronic diastolic CHF Afib with RVR, paroxysmal, s/p prior ablation T2DM, non-insulin dependent HTN Brief History of Present Illness: 40 yo M with atrial fibrillation, DM, HTN, HLD, history of multiple DVTs and PEs, CAD, anxiety who presents with chest pain and SOB. Tonight he felt dizzy and as if he could not take a deep inhale. He says for the past few weeks he has had orthopnea, PND, cough. Denies edema, palpitations. He says it has become more difficult for him to walk long distances. Denies palpitations and edema. He had not been taking his medications for the past year because he from his and he was on her insurance plan. He was found to be in afib with RVR upon arrival, responsive to diltiazem. CXR showed pulmonary edema, and he received IV lasix. WBC 13.3 Na 135 Glu 454 Mg 1.6 Dbili 0.3 alk phos 139 BNP 2974 Hospital Course: Difficult to obtain rate control. Patient initially started on sotalol, and eventually added amiodarone. Patient remained in afib with HR: 120-130s and low blood pressure. Sotalol was discontinued and replaced with metoprolol. Metoprolol dose was uptitrated as blood pressure would allow. Cardiology was consulted. recommended addition of Digoxin as well. Patient still remained in afib with HR: 110-120s, so Cardiology attempted electric cardioversion x2 unsuccessfully on morning of 06/09. Patient overall felt better but remained in afib with HR: 100-120s. Cardiology deemed patient stable for discharge home with the current regimen and will need to follow up with his otolaryngology nurse - Dr. Almaraz for likely a repeat ablation. Vital Signs/Physical Exam: Physical Exam Gen: NAD HEENT: normal conjunctiva, sclera anicteric CV: irregularly irregular rhythm, no murmur, no edema Pulm: clear to auscultation bilaterally, no wheeze/rhonchi Abd: soft, nontender, nondistended Neuro: normal affect, normal mood Temp Pulse Resp BP Pulse Ox 97.4 F 115 H 17 101/86 98 06/09/21 16:00 06/09/21 16:00 06/09/21 16:00 06/09/21 16:00 06/09/21 16:00 Laboratory Data at Discharge: WBC 17.30 K/uL (4.3-10.9) H D 06/09/21 04:49 Hgb 15.5 g/dL (13.6-17.9) 06/09/21 04:49 Hct 45.6 % (39.6-49.0) 06/09/21 04:49 Plt Count 271 K/uL (152-406) 06/09/21 04:49 PT 13.3 SECONDS (9.5-12.5) H 06/03/21 03:30 INR 1.15 06/03/21 03:30 Sodium 133 mmol/L (136-145) L 06/09/21 04:49 Potassium 4.1 mmol/L (3.5-5.1) 06/09/21 04:49 BUN 14 mg/dL (7-18) 06/09/21 04:49 Creatinine 0.89 mg/dL (0.55-1.3) 06/09/21 04:49 Glucose 196 mg/dL (74-106) H 06/09/21 04:49 Phosphorus 3.2 mg/dL (2.5-4.9) 06/09/21 04:49 Magnesium 1.7 mg/dL (1.8-2.4) L D 06/09/21 04:49 Total Bilirubin 1.0 mg/dL (0.2-1.0) 06/04/21 05:20 AST 27 U/L (15-37) 06/04/21 05:20 ALT 41 U/L (12-78) 06/04/21 05:20 Alkaline Phosphatase 100 U/L (45-117) 06/04/21 05:20 Triglycerides 115 mg/dL (<150) 06/04/21 05:20 Cholesterol 164 mg/dL (<200) 06/04/21 05:20 HDL Cholesterol 28 mg/dL (40-60) L 06/04/21 05:20 Cholesterol/HDL Ratio 5.86 06/04/21 05:20 Home Medications: Aspirin 1 tab PO DAILY 05/30/18 Amiodarone HCl [Cordarone*] 400 mg PO SEECOM 30 Days #74 tab 06/09/21 Atorvastatin Calcium 1 tab PO DAILY 30 Days #30 tab 06/09/21 Dabigatran Etexilate Mesylate [Pradaxa] 150 mg PO BID 30 Days #60 capsule 05/22 02/10 Digoxin [Lanoxin*] 0.25 mg PO DAILY 30 Days #30 tab 06/09/21 Furosemide [Lasix] 20 mg PO DAILY 30 Days #30 tablet 06/09/21 Metformin HCl 1 tab PO BID 30 Days #60 06/09/21 Metformin HCl 1 tab PO BID 30 Days #60 tablet 06/09/21 Metoprolol Tartrate [Lopressor*] 50 mg PO Q8HR 30 Days #90 tab 06/09/21 Sitagliptin Phosphate [Januvia*] 100 mg PO DAILY 30 Days #30 tab 06/09/21 New Medications: Metoprolol Tartrate [Lopressor*] 50 mg PO Q8HR 30 Days #90 tab Atorvastatin Calcium 1 tab PO DAILY 30 Days #30 tab Amiodarone HCl [Cordarone*] 400 mg PO SEECOM 30 Days #74 tab Sitagliptin Phosphate [Januvia*] 100 mg PO DAILY 30 Days #30 tab Digoxin [Lanoxin*] 0.25 mg PO DAILY 30 Days #30 tab Furosemide [Lasix] 20 mg PO DAILY 30 Days #30 tablet Metformin HCl 1 tab PO BID 30 Days #60 Metformin HCl 1 tab PO BID 30 Days #60 tablet Dabigatran Etexilate Mesylate [Pradaxa] 150 mg PO BID 30 Days #60 capsule Physician Discharge Instructions: PROBLEM: Atrial Fibrillation GOAL: Clear understanding of disease process INSTRUCTIONS:Follow up with correctional facility nurse of choice in next 1-2 weeks Diet: Diabetic, Heart Healthy Activity: As tolerated DME DME: Date Ordered: Name of Company: [employer] Services Needed: None Name of Company: Date or Referral: IMMUNIZATION Influenza Vaccine Indicated: Yes Influenza Vaccine Given: No Date Given: Pneumonia Vaccine Indicated: Yes Pneumonia Vaccine Given: No Date Given: You were found to be in atrial fibrillation with RVR, with rapid heart rate to the [id number]. He had some slight improvement with medications but not complete resolution. Cardiology was consulted and made adjustments to your medications. You had further mild improvement, but again, not complete resolution. Heart rate remained [id number] He underwent electrical cardioversion twice on 06/09, with no success. You are deemed stable for discharge by cardiology, to continue no medications of amiodarone, metoprolol, digoxin, and a diuretic pillfurosemide. You will need to follow-up with correctional facility nurse next week or so You need to follow-up with Dr. Almaraz, likely will need ablation Chest x-ray on admission showed moderate bilateral haziness, possible pneumonia versus fluid. Repeat chest x-ray on 06/09 showed significant improvement, suggesting that it was fluid on the lungs. You were treated with IV, and subsequently oral furosemide to help get fluid off which helped significantly. CT chest revealed no blood clots in your lungs. Did show some nonspecific mild haziness that could be a viral infection. You are tested for COVID on admission and negative. Followup: NONE,NONE [Primary Care Provider] - Time spent managing pt's care (in minutes): 45
--- NOTE | 2021-06-11 17:27 | PN ---
Date of Progress Note: 06/08/2021 Mr. Calles remains in atrial fibrillation despite amiodarone, digoxin and metoprolol. We will plan t o do a cardioversion on 06/09/2021. Case was discussed with him. He understands the risk and the be nefits of the procedure and he agreed to proceed. He has had ablation by Dr. Almaraz 5 years ago. If he does not convert with shocks, we will refer him back to Dr. Monge for further intervention. PATTY/JOVANNI Voice ID: [id number] Report ID: [id number]
--- NOTE | 2021-06-11 21:20 | OP ---
Date of Procedure: 06/09/2021 Surgeon: Darien Yang MD Procedure: Direct current cardioversion. Indication: Atrial fibrillation. History Of Present Illness: Mr. Calles was in the ICU. He had been admitted with atrial fibrillatio n and congestive heart failure, rapid atrial fibrillation, unresponsive to IV amiodarone, has had an ablation [address] Almaraz, received digoxin, metoprolol with continued rapid ventricular res ponse. He received 8 mg of IV push Versed with total sedation. Received 2 shots of cardioversion wi th 200 joules each and still did not convert. We plan to continue the amiodarone 400 b.i.d. p.o. lj ly. After that continue to go down to once a day on the amiodarone and he will see Dr. Almaraz in the very near future. He may need another ablation. The patient tolerated the procedure well. There w ere no complications. Anesthesia: Total conscious sedation was 30 minutes. PATTY/JOVANNI Voice ID: [id number] Report ID: [id number]
== END 2021-06-09 17:15 | disposition home or self-care (01) | DRG 308 ==
LOC: ER 03:10 → ERHOLD 05:30 → 2ND 14:27 → 3RD-ICU 06-05 17:22
PROVIDERS: ADMIT Internal Medicine; ATTEND Hospitalist
DX: I48.0 Paroxysmal atrial fibrillation (principal); I50.33 Acute on chronic diastolic (congestive) heart failure; J96.01 Acute respiratory failure with hypoxia; I11.0 Hypertensive heart disease with heart failure; I25.10 Atherosclerotic heart disease of native coronary artery without angina pectoris; E11.65 Type 2 diabetes mellitus with hyperglycemia; E78.5 Hyperlipidemia, unspecified; E87.6 Hypokalemia; F17.210 Nicotine dependence, cigarettes, uncomplicated; I25.2 Old myocardial infarction; Z91.14 Patient's other noncompliance with medication regimen; Z86.718 Personal history of other venous thrombosis and embolism; Z86.711 Personal history of pulmonary embolism; Z79.82 Long term (current) use of aspirin; Z79.84 Long term (current) use of oral hypoglycemic drugs; Z79.899 Other long term (current) drug therapy; Z20.822 Contact with and (suspected) exposure to COVID-19
CPT/HCPCS: 0240U; 36415; 71045; 71275; 80048; 80053; 80061; 80076; 81003; 81015; 82947; 83036; 83735; 83880; 84100; 84132; 84145; 84439; 84443; 84484; 85025; 85610; 93005; 93306; 94760; 96374; 96375; 99285; J0282; J1940; J2250; J3475; J7060; Q9967